=== PATIENT | male | born 1940 | race Caucasian/White ===

== ENCOUNTER 2019-09-01 08:46 | Outpatient (CLI) | payer MEDICARE, SELFPAY ==
--- NOTE | ~2019-09-01 | US_ITS ---
EXAMINATION: US venous doppler LE RT DATE: 09/01/2019 09:16 INDICATION: Acute deep venous thrombosis in the right lower limb. TECHNIQUE: Grayscale ultrasound images without and with compression and Doppler ultrasound images of the right lower extremity veins were obtained. COMPARISON: None. FINDINGS: Persistent noncompressible occlusive appearing deep venous thrombosis in both of the paired right per wong veins as well as within one of the right posterior tibial veins. Interval resolution of the thr ombosis in the second right posterior tibial vein which is now patent and compressible. Decrease in t he amount of now nonocclusive thrombus in the now partially compressible distal right popliteal vein. The more proximal right popliteal vein as well as the visualized portions of right common femoral ve in, profunda (deep) femoral vein, femoral vein, gastrocnemius vein and greater saphenous vein outflow remain patent. IMPRESSION: 1. Resolution of thrombus in one of the paired right posterior tibial veins with persistent deep yuliana ous thrombosis in the second right posterior tibial vein, both the paired peroneal veins as well as t he distal right popliteal vein. Reviewed, dictated and finalized at location A. IMPRESSION: 1. Resolution of thrombus in one of the paired right posterior tibial veins wi th persistent deep venous thrombosis in the second right posterior tibial vein, both the paired peroneal veins as well as the distal right popliteal vein.
== END 2019-09-01 08:47 | disposition home or self-care (01) ==
LOC: ANHIMG 08:49
PROVIDERS: PCP Internal Medicine; Visit Provider Internal Medicine Hematology & Oncology
DX: I82.4Y1 Acute embolism and thrombosis of unspecified deep veins of right proximal lower extremity (principal)
CPT/HCPCS: 93971

== ENCOUNTER 2019-10-13 00:17 | Outpatient (CLI) | payer MEDICARE, SELFPAY ==
[2019-10-13 15:54] LABS: SARS-CoV-2 RNA PCR Negative
== END 2019-10-13 00:18 | disposition home or self-care (01) ==
LOC: ANHCOVIDDT 00:17
PROVIDERS: PCP Internal Medicine; Visit Provider Internal Medicine Gastroenterology
DX: Z01.812 Encounter for preprocedural laboratory examination (principal); Z20.828 Contact with and (suspected) exposure to other viral communicable diseases
CPT/HCPCS: 87635; C9803; U0003

== ENCOUNTER 2019-10-16 04:12 | Day surgery (SDC) | payer MEDICARE, SELFPAY ==
[2019-10-09 14:44] VITALS: BMI 35.3
--- NOTE | 2019-10-15 16:32 | WPDANESEPP ---
Anes - Eval Pre Procedure Procedure: Operation Date: 10/16/19 07:30 Proposed Procedures p Colonoscopy - Yifan Romero MD Date/Time: 10/15/19 16:32 Surgeon: vic Pre Op Diagnosis: hx of colon Ca Patient Data Age: 79 Gender: M Height: 1.8 m Weight: 115 kg Allergies Allergy/AdvReac Type Severity Reaction Status Date / Time No Known Allergies Allergy Verified 10/09/19 14:35 Home Medications Medication Instructions Recorded Confirmed Type amitriptyline 10 mg PO HS 02/21/19 10/09/19 History ascorbic acid (vitamin C) 500 mg PO DAILY 02/21/19 10/09/19 History carvedilol 6.25 mg PO BID 02/21/19 10/09/19 History cyanocobalamin (vitamin B-12) 1,000 mcg PO DAILY 02/21/19 10/09/19 History fenofibrate micronized 134 mg PO DAILY 02/21/19 10/09/19 History ferrous sulfate 324 mg PO TID 02/21/19 10/09/19 History finasteride 5 mg PO DAILY 02/21/19 10/09/19 History hydrochlorothiazide 12.5 mg PO DAILY 02/21/19 10/09/19 History insulin detemir U-100 30 unit SUBCUT HS 02/21/19 10/09/19 History lisinopril 40 mg PO DAILY 02/21/19 10/09/19 History simvastatin 40 mg PO DAILY 02/21/19 10/09/19 History tamsulosin 0.4 mg PO DAILY 02/21/19 10/09/19 History terazosin 10 mg PO HS 02/21/19 10/09/19 History glimepiride 4 mg tablet 4 mg PO BID #180 tablet 05/11/19 10/09/19 Rx metformin 850 mg tablet 850 mg PO TID 05/16/19 10/09/19 History rivaroxaban 20 mg tablet 20 mg PO DAILY #90 tablet 05/16/19 10/09/19 Rx felodipine 10 mg tablet,extended 10 mg PO DAILY #90 tablet 06/06/19 10/09/19 Rx release 24 hr loperamide 2 mg PO Q4H PRN 10/09/19 10/09/19 History Patient hx anesthesia problems: none Family hx anesthesia problems: none PMFSH Past Medical History Medical History (Updated 10/15/19 @ 16:33 by Abril Hudson CRNA) Anemia Arthritis Asthma BPH (benign prostatic hyperplasia) Colon cancer Colonic polyp DVT (deep venous thrombosis) History of rectal fissure HLD (hyperlipidemia) HTN (hypertension) IDDM (insulin dependent diabetes mellitus) Kidney stones Rectal abscess Shingles Ulcer Surgical History Surgical History H/O bilateral cataract extraction H/O hemicolectomy H/O right knee surgery Social History Social History Smoking status: Former smoker Second hand tobacco smoke exposure: No Smoking end date: 05/10/97 Alcohol intake: never Gender identity (if verbalized by the patient): Female Exam Day of Procedure 10/15/19 16:32
[2019-10-16 06:32] VITALS: BMI 34.6
[2019-10-16 06:33] VITALS: BP 191/55; PULSE 98; RESP 20; TEMP 36.2; O2SAT 99
[2019-10-16 06:45] LABS: Glucose Point of Care 151 (65-105)
[2019-10-16] MEDS: LACTATED RINGERS 1,000 ML 150 ML IV CONT (06:45)
--- NOTE | 2019-10-16 07:12 | WPDANESEPPF ---
Anes - Initial Pre Proc Eval Procedure: Operation Date: 10/16/19 07:30 Proposed Procedures p Colonoscopy - Yifan Romero MD Date/Time: 10/16/19 07:12 Surgeon: Yifan Romero MD Pre Op Diagnosis: hx of colon Ca Patient Data Age: 79 Gender: M Height: 5 ft 11 in Weight: 112.5 kg Last Vital Signs Temp 97.2 F L 10/16/19 06:33 Pulse 98 10/16/19 06:33 Resp 20 10/16/19 06:33 BP 191/55 H 10/16/19 06:33 Pulse Ox 99 10/16/19 06:33 Allergies Allergy/AdvReac Type Severity Reaction Status Date / Time No Known Allergies Allergy Verified 10/16/19 06:28 Home Medications Medication Instructions Recorded Confirmed Type amitriptyline 10 mg PO HS 02/21/19 10/16/19 History ascorbic acid (vitamin C) 500 mg PO DAILY 02/21/19 10/16/19 History carvedilol 6.25 mg PO BID 02/21/19 10/16/19 History cyanocobalamin (vitamin B-12) 1,000 mcg PO DAILY 02/21/19 10/16/19 History fenofibrate micronized 134 mg PO DAILY 02/21/19 10/16/19 History ferrous sulfate 324 mg PO TID 02/21/19 10/16/19 History finasteride 5 mg PO DAILY 02/21/19 10/16/19 History hydrochlorothiazide 12.5 mg PO DAILY 02/21/19 10/16/19 History insulin detemir U-100 30 unit SUBCUT HS 02/21/19 10/16/19 History lisinopril 40 mg PO DAILY 02/21/19 10/16/19 History simvastatin 40 mg PO DAILY 02/21/19 10/09/19 History tamsulosin 0.4 mg PO DAILY 02/21/19 10/09/19 History terazosin 10 mg PO HS 02/21/19 10/09/19 History glimepiride 4 mg tablet 4 mg PO BID #180 tablet 05/11/19 10/16/19 Rx metformin 850 mg tablet 850 mg PO TID 05/16/19 10/16/19 History rivaroxaban 20 mg tablet 20 mg PO DAILY #90 tablet 05/16/19 10/09/19 Rx felodipine 10 mg tablet,extended 10 mg PO DAILY #90 tablet 06/06/19 10/16/19 Rx release 24 hr loperamide 2 mg PO Q4H PRN 10/09/19 10/16/19 History Laboratory Tests 10/16/19 06:42 POC Capillary Glucose 151 mg/dl H mg/dl (65-105) Patient hx anesthesia problems: none Family hx anesthesia problems: none PMFSH Past Medical History Medical History (Updated 10/15/19 @ 16:33 by Abril Hudson CRNA) Anemia Arthritis Asthma BPH (benign prostatic hyperplasia) Colon cancer Colonic polyp DVT (deep venous thrombosis) History of rectal fissure HLD (hyperlipidemia) HTN (hypertension) IDDM (insulin dependent diabetes mellitus) Kidney stones Rectal abscess Shingles Ulcer Surgical History Surgical History H/O bilateral cataract extraction H/O hemicolectomy H/O right knee surgery Social History Social History Smoking status: Former smoker Second hand tobacco smoke exposure: No Smoking end date: 05/10/97 Alcohol intake: never Gender identity (if verbalized by the patient): Female Anes - Eval Final PreProcedure Day of Procedure 10/16/19 07:12 Patient weight: obese Heart: regular rate and rhythm Lungs: clear to auscultation Airway: Mallampati scale class II Neurological: alert and oriented Last oral intake: >/= 8 hours ASA classification: III Emergent: no Anesthetic plan: proceed Anesthesia type and monitoring: general GIVS and standard monitoring Informed Consent: The patient's anesthetic plan and its attendant risks and benefits were discussed with the patient/family/POA. Questions were solicited and answers provided to the satisfaction of the patient/family/POA.
--- NOTE | 2019-10-16 07:37 | WPDGICN ---
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 He presents today for follow-up colonoscopy. Current weight appetite bowel movements normal. I would advise a high-fiber diet. Follow-up colonoscopy in 3 years intervals is advised. (2) DVT (deep venous thrombosis): Code(s): I82.409 - Acute embolism and thrombosis of unspecified deep veins of unspecified lower extremity Status: Acute Assessment and Plan: Patient has a history of DVT for which she now is on Xarelto anticoagulation this will be held briefly for his colonoscopy. GI Consult Note Consult date/time: 10/16/19 07:37 HPI: Estuardo Ruiz is a 79 year old male Seen in evaluation at the request Dr. Kline. Patient also followed by Dr. Pena, Oncology. Patient was identified as having a cancer in his colon 1 year ago. He underwent resection surgically. Was treated by chemotherapy under the direction of Dr. tanisha madden completed this in April of 2019. Patient's past medical history is significant for diabetes mellitus. He suffers with peripheral neuropathy on this basis. He recently had a DVT in the lower extremities for which she is on Xarelto anticoagulation. There is no family history of colon cancer. Review of Systems Review of Systems: All systems reviewed & are unremarkable except as noted in HPI and below PMFSH Past Medical History Medical History Anemia Arthritis Asthma BPH (benign prostatic hyperplasia) Colon cancer Colonic polyp DVT (deep venous thrombosis) History of rectal fissure HLD (hyperlipidemia) HTN (hypertension) IDDM (insulin dependent diabetes mellitus) Kidney stones Rectal abscess Shingles Ulcer Surgical History Surgical History H/O bilateral cataract extraction H/O hemicolectomy H/O right knee surgery Family History Family History Sibling Family history of lung cancer Patient's brother is Diabetes mellitus Mother Patient's mother is Father Family history of heart disease in male family member before age 55 Family history of cardiovascular disease Social History Social History Smoking status: Former smoker Second hand tobacco smoke exposure: No Smoking end date: 05/10/97 Alcohol intake: never Gender identity (if verbalized by the patient): Female Meds Home Medications and Allergies Home Medications Medication Instructions Recorded Confirmed Type amitriptyline 10 mg PO HS 02/21/19 10/16/19 History ascorbic acid (vitamin C) 500 mg PO DAILY 02/21/19 10/16/19 History carvedilol 6.25 mg PO BID 02/21/19 10/16/19 History cyanocobalamin (vitamin B-12) 1,000 mcg PO DAILY 02/21/19 10/16/19 History fenofibrate micronized 134 mg PO DAILY 02/21/19 10/16/19 History ferrous sulfate 324 mg PO TID 02/21/19 10/16/19 History finasteride 5 mg PO DAILY 02/21/19 10/16/19 History hydrochlorothiazide 12.5 mg PO DAILY 02/21/19 10/16/19 History insulin detemir U-100 30 unit SUBCUT HS 02/21/19 10/16/19 History lisinopril 40 mg PO DAILY 02/21/19 10/16/19 History simvastatin 40 mg PO DAILY 02/21/19 10/09/19 History tamsulosin 0.4 mg PO DAILY 02/21/19 10/09/19 History terazosin 10 mg PO HS 02/21/19 10/09/19 History glimepiride 4 mg tablet 4 mg PO BID #180 tablet 05/11/19 10/16/19 Rx metformin 850 mg tablet 850 mg PO TID 05/16/19 10/16/19 History rivaroxaban 20 mg tablet 20 mg PO DAILY #90 tablet 05/16/19 10/09/19 Rx felodipine 10 mg tablet,extended 10 mg PO DAILY #90 tablet 06/06/19 10/16/19 Rx release 24 hr loperamide 2 mg PO Q4H PRN 10/09/19 06
[2019-10-16 07:55] VITALS: BP 130/61; PULSE 98; RESP 32; O2SAT 98
[2019-10-16 08:02] LABS: Glucose Point of Care 148 (65-105)
[2019-10-16 08:05] VITALS: BP 131/61; PULSE 63; RESP 27; O2SAT 96
[2019-10-16 08:14] VITALS: BP 122/63; PULSE 75; RESP 29; O2SAT 97
== END 2019-10-16 08:34 | disposition home or self-care (01) ==
PROVIDERS: PCP Internal Medicine; Visit Provider Internal Medicine Gastroenterology
PROC: 0DJD8ZZ Inspection of Lower Intestinal Tract, Via Natural or Artificial Opening Endoscopic (ICD-10-PCS; CPT 45378; principal; 2019-10-16 07:30)
DX: Z12.11 Encounter for screening for malignant neoplasm of colon (principal); K63.5 Polyp of colon; K57.30 Diverticulosis of large intestine without perforation or abscess without bleeding; K64.8 Other hemorrhoids; Z85.038 Personal history of other malignant neoplasm of large intestine; Z98.0 Intestinal bypass and anastomosis status; I10 Essential (primary) hypertension; E11.9 Type 2 diabetes mellitus without complications; Z79.4 Long term (current) use of insulin; E78.5 Hyperlipidemia, unspecified; J44.9 Chronic obstructive pulmonary disease, unspecified; Z86.718 Personal history of other venous thrombosis and embolism; Z79.01 Long term (current) use of anticoagulants; Z87.891 Personal history of nicotine dependence
CPT/HCPCS: 45385; 88305; J2704; J7120

== ENCOUNTER 2019-12-23 07:32 | Outpatient (CLI) | payer MEDICARE, SELFPAY ==
--- NOTE | ~2019-12-23 | US_ITS ---
EXAMINATION: US venous doppler LE RT DATE: 12/23/2019 08:29 INDICATION: Acute deep vein thrombosis of proximal vein of right lower extremity. TECHNIQUE: Grayscale ultrasound images without and with compression and Doppler ultrasound images of the right lower extremity veins were obtained. COMPARISON: Ultrasound 09/01/2019 FINDINGS: The visualized portions of right common femoral vein, profunda (deep) femoral vein, femoral vein, pop liteal vein, peroneal veins, posterior tibial veins, and greater saphenous vein outflow are patent. IMPRESSION: 1. No deep venous thrombosis. Reviewed, dictated and finalized at location A.
== END 2019-12-23 07:33 | disposition home or self-care (01) ==
PROVIDERS: PCP Internal Medicine; Visit Provider Internal Medicine Hematology & Oncology
DX: I82.4Y1 Acute embolism and thrombosis of unspecified deep veins of right proximal lower extremity (principal)
CPT/HCPCS: 93971

== ENCOUNTER 2020-03-19 07:28 | Outpatient (CLI) | payer MEDICARE, SELFPAY ==
--- NOTE | ~2020-03-19 | CT_ITS ---
EXAMINATION: CT abdomen pelvis w con EXAM DATE: 03/19/2020 08:03 INDICATION: Malignant neoplasm of descending colon. TECHNIQUE: Spiral CT of the abdomen and pelvis was performed following intravenous injection of 100 m L Omnipaque 350. Axial, coronal and sagittal images were reviewed. The dose-length product (DLP) fo r this examination was 1422.75 mGy-cm. The exposure was tailored according to patient size (auto mA exposure control), and iterative reconstruction (ASIR) was used as additional dose reduction techniqu e. Comparison is made to prior examination from 06/05/2019. FINDINGS: There is a left liver lobe hyperenhancing lesion measuring about 1.8 cm, unchanged, hemangi radha based on prior imaging. The liver, spleen, adrenal glands and pancreas are otherwise unremarkabl e. Gallbladder is unremarkable. No biliary obstruction. Portal and splenic veins are patent. Kidn eys enhance symmetrically. Right renal cysts up to 4 cm. There is no hydronephrosis. The prostate i s unremarkable. The bladder is unremarkable. There is no retroperitoneal or pelvic lymphadenopathy. There is moderate scattered arteriosclerotic disease. Cecal resection. The stomach and small bowel are unremarkable. There is expected amount of colonic stool. No free intraperitoneal gas. The heart is normal in size. There are no pericardial or ple ural effusions. The lung bases are unremarkable. There are no osteoblastic or osteolytic lesions id entified. IMPRESSION: No evidence of metastatic disease. Stable exam. Reviewed, dictated and finalized at location A. CAL ARTIST
== END 2020-03-19 07:29 | disposition home or self-care (01) ==
LOC: ANHIMG 07:31
PROVIDERS: PCP Internal Medicine; Visit Provider Internal Medicine Hematology & Oncology
DX: C18.6 Malignant neoplasm of descending colon (principal)
CPT/HCPCS: 74177; Q9967

== ENCOUNTER 2020-06-03 07:33 | Outpatient (RCR) | payer MEDICARE, SELFPAY ==
[2020-04-29 11:30] VITALS: BMI 37.0
--- NOTE | 2020-06-03 13:46 | P.PNWOUND_ITS ---
Wound Care Note Date/Time: 06/03/20 13:46 Perianal wound has no further drainage. Feels good. No complaints. Assessment and Plan Assessment and plan (1) Anal ulcer: Code(s): K62.6 - Ulcer of anus and rectum Status: Chronic Assessment and Plan: Ulcer has essentially healed although the epithelial covering is still very thin. Advised patient to continue using aloe [place] antifungal cream to the area daily for another 2 weeks. Then may discontinue. He will follow up p.r.n. if further symptoms should develop. (2) Perianal candidiasis: Code(s): B37.89 - Other sites of candidiasis Status: Chronic Assessment and Plan: Essentially healed but will continue antifungal cream as above for 2 more weeks. Review of Systems Constitutional: Constitutional: Denies body ache(s), Denies chills, Denies fever(s), Denies headache(s) and Denies lethargy Gastrointestinal: Gastrointestinal: Denies change in bowel habits and Denies diarrhea Exam GI: Rectal Exam: visual inspection abnormal lesions ( Left-sided ulcer has completely epithelialized although very thin layer.)
== END 2020-07-15 08:09 | disposition home or self-care (01) ==
LOC: ANHWOC 07:33
PROVIDERS: PCP Internal Medicine; Visit Provider Surgery
DX: K62.6 Ulcer of anus and rectum (principal); B37.89 Other sites of candidiasis
CPT/HCPCS: 99212; 99213; G0463

== ENCOUNTER 2020-07-03 10:30 | Outpatient (CLI) | payer MEDICARE, SELFPAY ==
--- NOTE | ~2020-07-03 | US_ITS ---
EXAMINATION: US venous doppler LE RT DATE: 07/03/2020 11:56 INDICATION: Right lower limb swelling TECHNIQUE: Grayscale ultrasound images without and with compression and Doppler ultrasound images of the right lower extremity veins were obtained. COMPARISON: None. FINDINGS: The visualized portions of right common femoral vein, profunda (deep) femoral vein, femoral vein, pop liteal vein, peroneal trunk, posterior tibial veins, peroneal veins, gastrocnemius vein and greater s aphenous vein outflow are patent. IMPRESSION: 1. No deep venous thrombosis in the right lower limb. Reviewed, dictated and finalized at location A. [employer] OPERATIONS VICE PRESIDENT
== END 2020-07-03 10:31 | disposition home or self-care (01) ==
LOC: ANHIMG 10:32
PROVIDERS: PCP Internal Medicine; Visit Provider Internal Medicine Hematology & Oncology
DX: M79.89 Other specified soft tissue disorders (principal)
CPT/HCPCS: 93971

== ENCOUNTER 2020-07-26 09:26 | Outpatient (CLI) | payer MEDICARE, SELFPAY ==
--- NOTE | 2020-07-26 | ECHO_ITS ---
Patient Info Name: Estuardo Ruiz Age: 79 years : 1940 Gender: Male Ht: 71 in Wt: 264 lbs BSA: 2.49 m2 HR: 73 bpm BP: 172 / 67 mmHg Technical Quality: Good Exam Date: 07/26/2020 9:59 AM Exam Location: [facility] Patient Status: Outpatient Admit Date: 07/26/2020 Staff Ordering Physician: Ferdinand Snyder PA-C Supervising Deputy: Luan Alvarez RDCS, RT Attending Provider: Ferdinand Snyder PA-C Referring Physician: Lillian LYLES; Exam Type: CA echo doppler color flow Study Info Indications R60.0 - Localized edema Complete two-dimensional, color flow and Doppler transthoracic echocardiogram is performed. Strain analysis performed. Summary 1. Complete two-dimensional, color flow and Doppler transthoracic echocardiogram is performed. 2. Left ventricular chamber dimension is normal. 3. Left ventricular systolic function is normal, estimated at 55-60%. 4. There is mildly increased left ventricular wall thickness. 5. The left ventricular diastolic function is grade II diastolic dysfunction. 6. E/e' 10 is mildly elevated. 7. Global longitudinal strain is normal at -18.8%. 8. There is mild aortic valve sclerosis. Left Ventricle E/e' 10 is mildly elevated. Global longitudinal strain is normal at -18.8%. Left ventricular chamber dimension is normal. Left ventricular systolic function is normal, estimated at 55-60%. There is mildly increased left ventricular wall thickness. The left ventricular diastolic function is grade II diastolic dysfunction. Right Ventricle Right ventricular systolic function is normal and normal TAPSE 2.5 cm. Right ventricular chamber dimension is normal. Left Atria Left atrial chamber dimension is normal. Right Atria Right atrial chamber dimension is normal. Aortic Valve The aortic valve is trileaflet. There is mild aortic valve sclerosis. There is no aortic valve stenosis. There is no aortic valve regurgitation. Pulmonic Valve There is no pulmonic regurgitation. Mitral Valve There is no mitral valve stenosis. There is no mitral valve regurgitation. Tricuspid Valve There is no tricuspid valve regurgitation. Pericardium/Pleural There is no pericardial effusion. Inferior Vena Cava Normal inferior vena cava with >50% collapse upon inspiration consistent with normal right atrial pressure, 5 mmHg. Aorta The aortic root size at the sinus of Valsalva is normal. Left Ventricular Outflow Tract Name Value Normal LVOT 2D LVOT Diameter 2.4 cm LVOT Doppler LVOT Peak Gradient 3 mmHg LVOT Mean Gradient 1 mmHg LVOT VTI 19 cm LVOT VTI/AV VTI Ratio 0.7 LVOT Stroke Volume 82 ml LVOT CO 5.1 l/min LVOT CI 2.1 l/min/m2 Mitral Valve Name Value Normal MV Do
== END 2020-07-26 09:27 | disposition home or self-care (01) ==
PROVIDERS: PCP Internal Medicine; Visit Provider Physician Assistant
DX: R60.0 Localized edema (principal); I35.8 Other nonrheumatic aortic valve disorders; I51.9 Heart disease, unspecified
CPT/HCPCS: 93306

== ENCOUNTER 2020-09-23 06:46 | Outpatient (CLI) | payer MEDICARE, SELFPAY ==
--- NOTE | ~2020-09-23 | CT_ITS ---
EXAMINATION: CT abdomen pelvis w con EXAM DATE: 09/23/2020 07:23 INDICATION: Malignant neoplasm of descending colon. TECHNIQUE: Spiral CT of the abdomen and pelvis was performed following intravenous injection of 100 m L Omnipaque 350. Axial, coronal and sagittal images of the abdomen and pelvis were reviewed. The do se-length product (DLP) for this examination was 1523.57 mGy-cm. The exposure was tailored according to patient size (auto mA exposure control), and iterative reconstruction (ASIR) was used as addition al dose reduction technique. Comparison is made to prior examination from 03/19/2020, 06/12/2013. FINDINGS: Left liver lobe lesion measuring 2.7 x 2.0 cm, previously determined by MRI to have periph eral nodular enhancement consistent with hemangioma. This has been demonstrating slow interval increa se in size over last several years. Enhancement characteristic is again consistent with hemangioma. T here is a smaller lesion in the right liver lobe inferiorly measuring 1.5 cm also with peripheral nod ular enhancement, consistent with hemangioma. The liver, spleen, adrenal glands are otherwise unremarkable. Pancreatic calcifications, chronic panc reatitis. Gallbladder is unremarkable. No biliary obstruction. Portal and splenic veins are patent. Kidneys enhance symmetrically. Right renal cysts up to 4 cm. Mild bilateral renal atrophy. There is no hydronephrosis. The prostate is unremarkable. The bladder is unremarkable. There is no retrop eritoneal or pelvic lymphadenopathy. There is moderate scattered arteriosclerotic disease. Umbilica l abdominal wall dehiscence. Cecal resection. The stomach and small bowel are unremarkable. There is expected amount of colonic stool. There is mild sigmoid colonic diverticulosis. There is no adjacent inflammatory change to sug gest diverticulitis. No free intraperitoneal gas. The heart is normal in size. There are no peric ardial or pleural effusions. Left basilar noncalcified 10 mm granuloma, unchanged compared to chest CT 09/22/2018 There are no osteoblastic or osteolytic lesions identified. IMPRESSION: No evidence of metastatic disease. Liver hemangiomata. Chronic pancreatitis. Colonic diverticulosis. Reviewed, dictated and finalized at location A.
[2020-09-23 07:18] LABS: Estimated Glomerular Filt Rate > 60
== END 2020-09-23 06:47 | disposition home or self-care (01) ==
PROVIDERS: PCP Internal Medicine; Visit Provider Internal Medicine Hematology & Oncology
DX: C18.6 Malignant neoplasm of descending colon (principal); D18.09 Hemangioma of other sites; K86.1 Other chronic pancreatitis; K57.90 Diverticulosis of intestine, part unspecified, without perforation or abscess without bleeding
CPT/HCPCS: 74177; Q9967

== ENCOUNTER 2020-11-29 09:09 | Outpatient (RCR) | payer MEDICARE, SELFPAY ==
[2020-11-29 09:49] VITALS: BMI 38.0
== END 2021-02-27 23:59 | disposition home or self-care (01) ==
LOC: ANHWOC 09:09
PROVIDERS: PCP Internal Medicine; Visit Provider Surgery
DX: K62.6 Ulcer of anus and rectum (principal)
CPT/HCPCS: 99212; G0463

== ENCOUNTER 2021-05-26 06:32 | Outpatient (CLI) | payer MEDICARE, SELFPAY ==
--- NOTE | ~2021-05-26 | CT_ITS ---
EXAMINATION: CT abdomen pelvis w con DATE: 05/26/2021 07:28 INDICATION: Malignant neoplasm of descending colon; restaging TECHNIQUE: Computed tomography (CT) of the abdomen and pelvis was performed with 100 cc Omnipaque 350 intravenous contrast. Automated exposure control and iterative reconstruction technique were employe d. Exam dose: 1535.75 mGy-cm total exam DLP. COMPARISON: 09/23/2020 CT abdomen pelvis / CT chest abdomen pelvis 06/12/2013 CT abdomen pelvis FINDINGS: Stable approximately 9.5 mm left lower lobe pulmonary mass since 09/23/2020 or 06/12/2013, con sistent with benign process. The included lower lung zones are clear of infiltrate or consolidation. Normal heart size. Coronary artery calcification. No pericardial or pleural effusion. There is an enhancing approximately 2 cm mass at the anteromedial aspect of the lateral segment left hepatic lobe, relatively stable since 09/22/2018. Stable approximately 1.4 cm probable hemangioma with interrupted peripheral nodular enhancement in th e lower right hepatic lobe. No interval hepatic space-occupying mass lesion is evident. The gallbladder is unremarkable. No bile duct dilatation. Splenic size is within normal range Stable right renal cysts including up to 4.3 cm septated exophytic cyst. No urinary tract calculus or hydroureteronephrosis. The urinary bladder is unremarkable. There is pro state enlargement and prominent calcification. There is calcification of the abdominal aorta but no aneurysm. There is prominent calcification of th e iliac and femoral arteries as well. No intraperitoneal or retroperitoneal or pelvic mass lesion or adenopathy or ascites. Status post right colectomy. No bowel obstruction, bowel wall thickening, pneumatosis or intraperiton eal free air is evident. No suspicious osteolytic or osteoblastic lesions. IMPRESSION: Status post right colectomy for colon cancer; no recurrence or metastatic disease is anitha dent 2. Stable hepatic lesions Right renal stable cysts Prostate enlargement and calcification Long-standing stable 9.5 mm left lower lobe pulmonary mass consistent with benign process Reviewed, dictated and finalized at [facility]. Reviewed, dictated and finalized at location A. 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 Stable hepatic lesions Right renal stable cysts Prostate enlargement and calcification Long-standing stable 9.5 mm left lower lobe pulmonary mass consistent with joya gn process
[2021-05-26 07:13] LABS: Estimated Glomerular Filt Rate > 60
== END 2021-05-26 06:33 | disposition home or self-care (01) ==
LOC: ANHIMG 06:36
PROVIDERS: PCP Internal Medicine; Visit Provider Internal Medicine Hematology & Oncology
DX: C18.6 Malignant neoplasm of descending colon (principal); Z90.49 Acquired absence of other specified parts of digestive tract; K76.9 Liver disease, unspecified; N28.1 Cyst of kidney, acquired; N40.0 Benign prostatic hyperplasia without lower urinary tract symptoms; R91.8 Other nonspecific abnormal finding of lung field
CPT/HCPCS: 74177; Q9967

== ENCOUNTER 2021-12-17 01:58 | Day surgery (SDC) | payer MEDICARE, SELFPAY ==
[2021-12-11 15:22] VITALS: BMI 38.5
--- NOTE | 2021-12-11 15:32 | PC.NURSE ---
PRE-OP INSTRUCTIONS, PLEASE READ CAREFULLY Report to the Outpatient Waiting Room, entrance under the green pavilion located off [facility], at time _1100_ on date _12/17/21_. OR Time: _1 PM_. - You and your visitor will be asked a series of questions to screen for COVID 19 for your protection. - Only one visitor is allowed at this time. - The patient visitor is requested to leave or wait in car when not with patient. - A mask is required within the hospital. Patients may have clear liquids (water, carbonated beverages, clear teas, apple juice) until 3 hours prior to surgery (1000 AM) with a maximum of 20 ounces. - No food from midnight until time of surgery Take the following medications with a SIP of water the morning of surgery: _CARVEDILOL, FELODIPINE, HYDRALAZINE, __ Medications to discontinue per physician __N/A_, Date to take last dose Please no deodorant, or body powder the day of surgery. No jewelry (including any body piercings) or valuables the day of surgery, leave them at home. Please take a shower or bath the night before, or the morning of, surgery with an antibacterial soap. Wear comfortable, loose fitting clothing. - Jewelry must be removed prior to entering the operating room. Rings and piercings that are not removed may be cut off. - The hospital will not accept responsibility for valuables. - Please leave all valuables, including medications, at home the day of surgery. If you are going home after surgery, a licensed fleet driver must drive you home. - NO public transportation without another adult. - We recommend that an adult stay with you for 24 hours following discharge. - We also recommend that you do not drive, make important decision, drink alcoholic beverages, or take any drugs that were not prescribed by your health care provider for at least 24 hours after your discharge time. Follow any additional instructions given to you from your surgeon. If you or anyone in your household have experienced Covid symptoms in the past week, please notify your surgeon or the nurse liaison at the phone number below for possible testing. Telephone instructions given to __PT__and asked if any additional questions and then verbalized understanding. Patient advised to call surgeon office or pre surgery nurse liaison [phone] if any additional questions.
[2021-12-17 10:12] VITALS: BP 135/47; PULSE 78; RESP 18; TEMP 36.6; O2SAT 100
--- NOTE | 2021-12-17 10:51 | WPDANESEPPF ---
Anes - Initial Pre Proc Eval Procedure: Operation Date: 12/17/21 12:00 Proposed Procedures p Removal Musa Cath - Wandy Lozada MD Date/Time: 12/17/21 10:51 Surgeon: Wandy Lozada MD Pre Op Diagnosis: Malignant Neoplasm of Descending Colon Patient Data Age: 81 Gender: M Height: 1.78 m Weight: 119.4 kg Last Vital Signs Temp 36.6 C 12/17/21 10:12 Pulse 78 12/17/21 10:12 Resp 18 12/17/21 10:12 BP 135/47 L 12/17/21 10:12 Pulse Ox 100 12/17/21 10:12 O2 Del Method Room Air 12/17/21 10:12 Allergies Allergy/AdvReac Type Severity Reaction Status Date / Time No Known Allergies Allergy Verified 12/17/21 10:20 Home Medications Medication Instructions Recorded Confirmed Type amitriptyline 10 mg tablet 10 mg PO HS 02/21/19 12/17/21 History ascorbic acid (vitamin C) 500 mg 500 mg PO DAILY 02/21/19 12/17/21 History tablet carvedilol 6.25 mg tablet 6.25 mg PO BID 02/21/19 12/17/21 History fenofibrate micronized 134 mg 134 mg PO DAILY 02/21/19 12/17/21 History capsule ferrous sulfate 324 mg (65 mg 324 mg PO BID 02/21/19 12/17/21 History iron) tablet,delayed release finasteride 5 mg tablet 5 mg PO DAILY 02/21/19 12/17/21 History lisinopril 40 mg tablet 40 mg PO DAILY 02/21/19 12/17/21 History simvastatin 40 mg tablet 40 mg PO DAILY 02/21/19 12/17/21 History tamsulosin 0.4 mg capsule 0.4 mg PO DAILY 02/21/19 12/17/21 History metformin 850 mg tablet 850 mg PO TID 05/16/19 12/17/21 History insulin detemir U-100 100 unit/mL 40 unit subcut HS 08/15/20 12/17/21 History subcutaneous solution comp.stocking,knee,long,medium #12 ea 08/30/20 12/02/21 Rx felodipine 10 mg tablet,extended 10 mg PO DAILY #90 tabs 05/08/21 12/17/21 Rx release 24 hr hydralazine 50 mg tablet 50 mg PO TID #270 tabs 06/04/21 12/17/21 Rx hydrochlorothiazide 25 mg tablet 25 mg PO DAILY #90 tabs 07/14/21 12/17/21 Rx glimepiride 4 mg tablet 4 mg PO BID #180 tabs 08/03/21 12/17/21 Rx terazosin 10 mg capsule 10 mg PO HS #90 caps 10/29/21 12/17/21 Rx Patient hx anesthesia problems: none Family hx anesthesia problems: none Results Review: All pre-operative results and documents have been reviewed as part of the pre-operative evaluation. [facility] Past Medical History Medical History Anemia Arthritis Asthma BPH (benign prostatic hyperplasia) Colon cancer Colonic polyp DVT (deep venous thrombosis) History of rectal fissure HLD (hyperlipidemia) HTN (hypertension) Kidney stones Rectal abscess Shingles Type 2 diabetes mellitus without complications Ulcer Surgical History Surgical History H/O bilateral cataract extraction H/O hemicolectomy H/O right knee surgery Port-A-Cath in place Family History Family History Sibling Family history of lung cancer Patient's brother is Diabetes mellitus Mother Patient's mother is Father Family history of heart disease in male family member before age 55 Family history of cardiovascular disease Acute myocardial infarction Cerebrovascular accident Social History Social History (Updated 12/06/21 @ 12:07 by Vincent Kline DO) Smoking packs per day: 2 Smoking cigarettes per day: 40.0 Years smoked: 30 Smoking pack-years: 60.00 Smoking status: Former smoker Second hand tobacco smoke exposure: No Smoking end date: 05/10/97 Alcohol intake: never Substance use: never Substance use type: does not use Living arrangements: with family Gender identity (if verbalized by the patient): Male Sexual Orientation (if Verbalized by the Patient): Straight or Heterosexual Spiritual care concerns: No Anes - Eval Final PreProcedure Day of Procedure 12/17/21 10:51 Patient weight: obese Heart: regular rate and rhythm Lungs: clear to auscultation Air
[2021-12-17 10:54] LABS: Glucose Point of Care 187 mg/dl (65-105)
--- NOTE | 2021-12-17 11:06 | PM.IMHP ---
H&P: HPI History of Present Illness Date/Time: 12/17/21 11:06 Chief Complaint: colon cancer Narrative: Pt is a 81 y/o M s/p treatment of colon cancer now requesting VAD removal. Pt reports VAD has been there for about 3 yrs and never has given him issue. Pt reports not being used for at least last year. Pt has VAD routinely flushed. Review of Systems Review of Systems: All systems reviewed & are unremarkable except as noted in HPI and below PMFSH Past Medical History Medical History Anemia Arthritis Asthma BPH (benign prostatic hyperplasia) Colon cancer Colonic polyp DVT (deep venous thrombosis) History of rectal fissure HLD (hyperlipidemia) HTN (hypertension) Kidney stones Rectal abscess Shingles Type 2 diabetes mellitus without complications Ulcer Surgical History Surgical History H/O bilateral cataract extraction H/O hemicolectomy H/O right knee surgery Port-A-Cath in place Family History Family History Sibling Family history of lung cancer Patient's brother is Diabetes mellitus Mother Patient's mother is Father Family history of heart disease in male family member before age 55 Family history of cardiovascular disease Acute myocardial infarction Cerebrovascular accident Social History Social History Smoking packs per day: 2 Smoking cigarettes per day: 40.0 Years smoked: 30 Smoking pack-years: 60.00 Smoking status: Former smoker Second hand tobacco smoke exposure: No Smoking end date: 05/10/97 Alcohol intake: never Substance use: never Substance use type: does not use Living arrangements: with family Gender identity (if verbalized by the patient): Male Sexual Orientation (if Verbalized by the Patient): Straight or Heterosexual Spiritual care concerns: No Meds Home Medications and Allergies Home Medications Medication Instructions Recorded Confirmed Type amitriptyline 10 mg tablet 10 mg PO HS 02/21/19 12/17/21 History ascorbic acid (vitamin C) 500 mg 500 mg PO DAILY 02/21/19 12/17/21 History tablet carvedilol 6.25 mg tablet 6.25 mg PO BID 02/21/19 12/17/21 History fenofibrate micronized 134 mg 134 mg PO DAILY 02/21/19 12/17/21 History capsule ferrous sulfate 324 mg (65 mg 324 mg PO BID 02/21/19 12/17/21 History iron) tablet,delayed release finasteride 5 mg tablet 5 mg PO DAILY 02/21/19 12/17/21 History lisinopril 40 mg tablet 40 mg PO DAILY 02/21/19 12/17/21 History simvastatin 40 mg tablet 40 mg PO DAILY 02/21/19 12/17/21 History tamsulosin 0.4 mg capsule 0.4 mg PO DAILY 02/21/19 12/17/21 History metformin 850 mg tablet 850 mg PO TID 05/16/19 12/17/21 History insulin detemir U-100 100 unit/mL 40 unit subcut HS 08/15/20 12/17/21 History subcutaneous solution comp.stocking,knee,long,medium #12 ea 08/30/20 12/02/21 Rx felodipine 10 mg tablet,extended 10 mg PO DAILY #90 tabs 05/08/21 12/17/21 Rx release 24 hr hydralazine 50 mg tablet 50 mg PO TID #270 tabs 06/04/21 12/17/21 Rx hydrochlorothiazide 25 mg tablet 25 mg PO DAILY #90 tabs 07/14/21 12/17/21 Rx glimepiride 4 mg tablet 4 mg PO BID #180 tabs 08/03/21 12/17/21 Rx terazosin 10 mg capsule 10 mg PO HS #90 caps 10/29/21 12/17/21 Rx Allergies Allergy/AdvReac Type Severity Reaction Status Date / Time No Known Allergies Allergy Verified 12/17/21 10:20 Vital Signs Vital Signs - 24 hr 12/17/21 10:12 Temperature 36.6 C Pulse Rate 78 Respiratory Rate 18 Blood Pressure 135/47 L Pulse Oximetry 100 Oxygen Delivery Room Air Exam Const: General: cooperative, comfortable and no acute distress Chest: Other: R chest VAD - C/D/I Resp: Auscultation: clear to auscultation bilaterally Cardio: Rate: regular rate Rhythm: regular rhyt
--- NOTE | 2021-12-17 11:09 | WPDHPUPDATE1 ---
History and Physical Update Update Date/Time: 12/17/21 11:09 History and Physical has been reviewed, including an updated exam of the patient. There are NO changes in the patient's condition. Risks, benefits, and alternatives have been discussed and questions answered. Patient agrees to proceed with procedure.
[2021-12-17] MEDS: LACTATED RINGERS 1,000 ML 30 ML IV CONT (11:11)
[2021-12-17] MEDS: ceFAZolin 2 GM/D5W 50 ML 2 GM/50 ML BAG IVPB (11:59)
[2021-12-17] MEDS: BUPIVACAINE/EPINEPHRINE 0.25% 50 ML VIAL INFILTRATE (12:18)
[2021-12-17 12:29] VITALS: BP 107/57; PULSE 88; RESP 16; O2SAT 95
--- NOTE | 2021-12-17 12:31 | P.OP_ITS ---
Procedure Note - Detailed Date of Procedure 12/17/21 Pre-op Diagnosis Malignant Neoplasm of Descending Colon Post-op Diagnosis Same Procedure Performed removal [facility] chest VAD Surgeon Wandy Lozada MD Anesthesia MAC and Local Indications 81 y/o M s/p treatment for colon cancer. Pt had R sided VAD placed about a year ago. Findings RIJ VAD Description of Procedure The patient was taken to the operating room and placed in the supine position. After adequate induction MAC anesthesia, the patient was then prepped and draped in the normal sterile fashion. A time-out was then done to verify the patient's identity, as well as the procedure being performed. I began by localizing the area of the previously placed port in the right chest. After the area was adequately anesthetized, I made an incision through the previous incision to gain access to the port in the subcutaneous tissue. I was then able to identify the port and using dissection with the Bovie cautery, I was able to free the reservoir from the subcutaneous pocket. The reservoir was being held in by 2 sutures and these were subsequently cut. I was then able to remove the reservoir from the pocket. I then removed the catheter from the right internal jugular vein in full. I then held pressure at the level the right internal jugular vein for approximately 5 minutes. Hemostasis was noted and I irrigated the pocket. I then closed the subcutaneous tissue with 3-0 Vicryl suture. The skin was closed with 4-0 Monocryl subcuticular suture. Dermabond was placed on the wound. The patient tolerated the procedure well and was alert and awake in the operating room postoperative. The patient will be sent to the recovery room in stable condition. Estimated Blood Loss 5 Drains No Packing No Pathology None sent Complications No immediate complications Condition Stable Disposition PACU [facility] Billing Surgery - Charge Forward: Surgery Billing
[2021-12-17 12:55] VITALS: BP 124/61; PULSE 86; RESP 16; O2SAT 95
[2021-12-17 13:20] VITALS: BP 133/58; PULSE 67; RESP 16
== END 2021-12-17 13:20 | disposition home or self-care (01) ==
PROVIDERS: PCP Internal Medicine; Visit Provider Surgery
PROC: (CPT 36589; principal; 2021-12-17 12:00)
DX: Z45.2 Encounter for adjustment and management of vascular access device (principal); Z85.038 Personal history of other malignant neoplasm of large intestine; I10 Essential (primary) hypertension; E78.5 Hyperlipidemia, unspecified; D64.9 Anemia, unspecified; N40.0 Benign prostatic hyperplasia without lower urinary tract symptoms; E11.9 Type 2 diabetes mellitus without complications; Z86.718 Personal history of other venous thrombosis and embolism; Z79.84 Long term (current) use of oral hypoglycemic drugs; Z79.4 Long term (current) use of insulin; Z90.49 Acquired absence of other specified parts of digestive tract; Z87.891 Personal history of nicotine dependence; E66.9 Obesity, unspecified; Z68.37 Body mass index [BMI] 37.0-37.9, adult
CPT/HCPCS: 36590; 82948; J0690; J2704; J3010; J7120

== ENCOUNTER 2022-06-02 06:37 | Outpatient (CLI) | payer MEDICARE, SELFPAY ==
--- NOTE | ~2022-06-02 | CT_ITS ---
CT Abdomen and Pelvis with contrast. History: Colon cancer. Spiral CT of the abdomen and pelvis was performed after the administration of intravenous contrast. 1 00 cc of Omnipaque 350 was administered intravenously without complication. Dose reduction technique was used on this scan by utilizing automated exposure control and iterative reconstruction technique. The dose-length product (DLP) was 1588.46 mGy-cm. COMPARISON: 05/26/2021 and 09/22/2018 Findings: Scans through the lung bases demonstrate stable 1 cm left lower lobe pulmonary nodule. Stable probable hepatic hemangioma along the anterior left hepatic lobe. The spleen, pancreas, gallbl adder, left kidney, and adrenal glands are within normal limits. Stable right renal cysts. No evidenc e of aortic aneurysm. No lymphadenopathy is seen. There is no evidence of bowel obstruction. There is evidence of prior partial right colectomy. No abn ormal bowel wall thickening evident. Images through the pelvis were performed. Urinary bladder unremarkable. Prostate gland and seminal ve sicles are unremarkable. No ascites is seen. Impression: No evidence for active malignancy or metastatic disease. Stable 1 cm left lower lobe pulmonary nodule dating back at least to 09/22/2018. Stability over this t brian interval is compatible with benignity. Prior partial right colectomy. Reviewed, dictated and finalized at location . 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 Stable 1 cm left lower lobe pulmonary nodule dating back at least to 09/22/2018. Stability over this time interval is compatible with benignity. Prior partial right colectomy.
[2022-06-02 07:07] LABS: Estimated Glomerular Filt Rate 45
== END 2022-06-02 06:38 | disposition home or self-care (01) ==
PROVIDERS: PCP Internal Medicine; Visit Provider Internal Medicine Hematology & Oncology
DX: C16.6 Malignant neoplasm of greater curvature of stomach, unspecified (principal); R91.1 Solitary pulmonary nodule; Z90.49 Acquired absence of other specified parts of digestive tract
CPT/HCPCS: 36415; 74177; 80053; 82378; 85025; Q9967

== ENCOUNTER 2023-05-26 08:26 | Outpatient (CLI) | payer MEDICARE, SELFPAY ==
[2023-05-26 08:54] LABS: Basophils Absolute Auto 0.1 K/mm3 (0.0-0.1); Basophils Percent Auto 0.8 % (0.2-1.2); Eosinophils Absolute Auto 0.1 K/mm3 (0-0.3); Eosinophils Percent Auto 2.4 % (0-4.4); Hematocrit 32.6 % (42.0-52.0); Hemoglobin 10.9 g/dL (14.0-18.0); Immature Granulocyte Absolute 0.02 K/mm3 (0.00-0.031); Immature Granulocyte Percent A 0.3 % (0-0.5); Lymphocytes Absolute Auto 1.45 K/mm3 (0.9-3.2); Lymphocytes Percent Auto 24.5 % (18.3-44.2); Mean Corpuscular HGB Conc 33.4 g/dl (32-36); Mean Corpuscular Hemoglobin 29.9 pg (26-34); Mean Corpuscular Volume 89.3 fl (80-100); Mean Platelet Volume 10.6 fl (7.4-10.4); Monocytes Absolute Auto 0.4 K/mm3 (0.1-0.6); Monocytes Percent Auto 7.1 % (2.6-8.5); Neutrophils Absolute Auto 3.9 K/mm3 (1.3-6.7); Neutrophils Percent Auto 64.9 % (45.5-73.1); Platelet Count Result 174 k/mm3 (150-375); Red Blood Count 3.65 M/mm3 (4.6-6.20); Red Cell Distribution Width 13.8 % (11.5-14.5); White Blood Count 5.9 K/mm3 (4.5-10.0)
[2023-05-26 16:45] LABS: Alanine Aminotransferase 21 U/L (6-50); Albumin Level 3.8 g/dL (3.5-5.1); Alkaline Phosphatase 34 U/L (38-126); Anion Gap 10 mmol/L (8-16); Aspartate Amino Transferase 25 U/L (17-59); Bilirubin,Total 0.8 mg/dL (0.2-1.3); Blood Urea Nitrogen 29 mg/dL (9-20); Calcium 9.3 mg/dL (8.4-10.2); Carbon Dioxide 22 mmol/L (22-30); Chloride 106 mmol/L (98-107); Estimated Glomerular Filt Rate 58; Glucose 214 mg/dL (65-110); Potassium 4.3 mmol/L (3.4-5.0); Sodium 138 mmol/L (137-145)
[2023-05-26 17:16] LABS: Carcinoembryonic Antigen 0.6 ng/mL (0.0-3.0)
== END 2023-05-26 08:27 | disposition home or self-care (01) ==
PROVIDERS: PCP Internal Medicine; Visit Provider Internal Medicine Hematology & Oncology
DX: C18.6 Malignant neoplasm of descending colon (principal)
CPT/HCPCS: 36415; 80053; 82378; 85025

== ENCOUNTER 2023-06-07 07:17 | Outpatient (CLI) | payer MEDICARE, SELFPAY ==
--- NOTE | ~2023-06-07 | CT_ITS ---
EXAMINATION: CT abdomen pelvis w con DATE: 06/07/2023 07:48 INDICATION: Restaging of descending colon carcinoma TECHNIQUE: Computed tomography (CT) of the abdomen and pelvis was performed with 100 CC Omnipaque 350 intravenous contrast. Automated exposure control and iterative reconstruction technique were employe d. Exam dose: 1444.76 mGy-cm total exam DLP. COMPARISON: 05/29/2022 CT abdomen pelvis FINDINGS: The included lower lung zones are clear of infiltrate or consolidation. Previously reported 1 cm nodular density in the left lower lobe is not included within the scope of this examination and therefore cannot be compared to prior studies. Normal heart size. No pericardial or pleural effusion. There is some interrupted multifocal peripheral puddling of contrast material within the anterolatera l aspect of the lateral segment of the left hepatic lobe, stable in size since 05/29/2022, consistent with benign hemangioma. Similar but smaller probable benign hemangioma is noted in the posterolateral aspect of the lower right hepatic lobe. There is hepatic steatosis. Splenic size is within normal range. The gallbladder appears unremarkable. No bile duct or pancreatic duct dilatation. There are multiple pancreatic calcifications suggesting chronic pancreatitis. Normal morphology of the adrenal glands. Multiple stable right renal cysts. No urinary tract calculus or hydroureteronephrosis. Prostate enlargement and calcifications. The urinary bladder is unremarkable. There is atherosclerotic calcification but normal caliber of the abdominal aorta, iliac and femoral a rteries. No intraperitoneal or retroperitoneal or pelvic mass lesion or adenopathy or ascites. Status post partial right colectomy. No bowel obstruction, bowel wall thickening, pneumatosis or intr aperitoneal free air. Diverticulosis of the left colon; no CT evidence of diverticulitis. No suspicious osteolytic or osteoblastic lesions are noted. Degenerative spurring of the thoracic spine. Multilevel degenerative disc disease of the lumbar spine , most severe at L5-S1, with associated mild retrolisthesis at this level. IMPRESSION: Status post partial right colectomy Diverticulosis of left colon; no evidence of diverticulitis Hepatic hemangiomas Hepatic steatosis Chronic pancreatitis Right renal cysts Reviewed, dictated and finalized at [facility]. Reviewed, dictated and finalized at location B. CEMENTER
== END 2023-06-07 07:18 | disposition home or self-care (01) ==
PROVIDERS: PCP Internal Medicine; Visit Provider Internal Medicine Hematology & Oncology
DX: C18.6 Malignant neoplasm of descending colon (principal); Z90.49 Acquired absence of other specified parts of digestive tract; K57.90 Diverticulosis of intestine, part unspecified, without perforation or abscess without bleeding; K76.0 Fatty (change of) liver, not elsewhere classified; K86.1 Other chronic pancreatitis; N28.1 Cyst of kidney, acquired
CPT/HCPCS: 74177; Q9967

== ENCOUNTER 2023-09-02 11:19 | Emergency (ER) | payer MEDICARE, SELFPAY ==
[2023-09-02 11:34] VITALS: BP 142/51; PULSE 76; RESP 16; TEMP 37.2; O2SAT 99
--- NOTE | 2023-09-02 12:19 | ED.URI ---
HPI - URI/Sore Throat General Chief Complaint: Upper Respiratory Infection Stated Complaint: cough,chest/nasal congestion Time Seen by Provider: 09/02/23 12:19 Source: patient and RN notes reviewed Mode of arrival: ambulatory Limitations: no limitations History of Present Illness HPI Narrative: 82-year-old male presents with concern for one-week history of cough, nasal drainage, feeling feverish and tired. He reports he took Eleanor which helps somewhat with his runny nose. He denies shortness of breath or known sick contacts. MD elicited complaint: cough Related Data Home Medications Medication Instructions Recorded Confirmed amitriptyline 10 mg tablet 10 mg PO HS 02/21/19 07/05/23 ascorbic acid (vitamin C) 500 mg 500 mg PO DAILY 02/21/19 07/05/23 tablet carvedilol 6.25 mg tablet 6.25 mg PO BID 02/21/19 07/05/23 fenofibrate micronized 134 mg 134 mg PO DAILY 02/21/19 07/05/23 capsule ferrous sulfate 324 mg (65 mg 324 mg PO BID 02/21/19 07/05/23 iron) tablet,delayed release finasteride 5 mg tablet 5 mg PO DAILY 02/21/19 09/02/23 lisinopril 40 mg tablet 40 mg PO DAILY 02/21/19 09/02/23 simvastatin 40 mg tablet 40 mg PO DAILY 02/21/19 09/02/23 tamsulosin 0.4 mg capsule 0.4 mg PO DAILY 02/21/19 09/02/23 metformin 850 mg tablet 850 mg PO TID 05/16/19 09/02/23 Allergies Allergy/AdvReac Type Severity Reaction Status Date / Time No Known Allergies Allergy Verified 09/02/23 11:39 Review of Systems Review of Systems: CONSTITUTIONAL: Reports malaise, fatigue, chills, sweats EYES: Denies visual changes, redness, or discharge. ENT: Reports rhinorrhea, congestion. Denies sinus pain, otalgia and sore throat. CARDIOVASCULAR: Denies chest pain, palpitations, or edema. RESPIRATORY: Reports productive cough. Denies dyspnea. GASTROINTESTINAL: Denies abdominal pain, nausea, vomiting, diarrhea SKIN: Denies rash or itching. MUSCULOSKELETAL: Denies myalgia. NEUROLOGIC: Denies headache. All systems reviewed & are unremarkable except as noted in HPI and below PMFSH Past Medical History Medical History Anemia Arthritis Asthma BPH (benign prostatic hyperplasia) Colon cancer Colonic polyp DVT (deep venous thrombosis) History of rectal fissure HLD (hyperlipidemia) HTN (hypertension) Kidney stones Rectal abscess Shingles Type 2 diabetes mellitus without complications Ulcer Surgical History Surgical History H/O bilateral cataract extraction H/O hemicolectomy H/O right knee surgery Port-A-Cath in place Family History Family History Sibling Family history of lung cancer Patient's brother is Diabetes mellitus Mother Patient's mother is Father Family history of heart disease in male family member before age 55 Family history of cardiovascular disease Acute myocardial infarction Cerebrovascular accident Social History Social History (Updated 07/05/23 @ 08:45 by Alyssa Tran [facility]) Smoking packs per day: 2 Smoking cigarettes per day: 40.0 Years smoked: 30 Smoking pack-years: 60.00 Smoking status: Former smoker Second hand tobacco smoke exposure: No Smoking end date: 05/10/97 Alcohol intake: never Substance use: never Substance use type: does not use Do You Feel Safe in your Home?: Yes Lack of Transportation: No Lack of Food: Never True Current Housing: I Have Housing Concerned About Future Housing: No Difficulty Paying Gas/Electric Bills: No Difficulty Paying for Meds: No Currently Unemployed: No Education: Decline to Answer Difficulty w/ Childcare or Family Care: Decline to Answer Living arrangements: with family Occupation/Education: retired Gender identity (if verbalized by the patient): Male Sexual Orientation (if Verbalized by the Patient): Straight or
== END 2023-09-02 12:36 | disposition home or self-care (01) ==
PROVIDERS: Emergency Provider Nurse Practitioner; PCP Internal Medicine
DX: J22 Unspecified acute lower respiratory infection (principal); Z87.891 Personal history of nicotine dependence; D64.9 Anemia, unspecified; M19.90 Unspecified osteoarthritis, unspecified site; J45.909 Unspecified asthma, uncomplicated; N40.0 Benign prostatic hyperplasia without lower urinary tract symptoms; E78.5 Hyperlipidemia, unspecified; I10 Essential (primary) hypertension; E11.9 Type 2 diabetes mellitus without complications; Z79.84 Long term (current) use of oral hypoglycemic drugs; Z98.42 Cataract extraction status, left eye; Z98.41 Cataract extraction status, right eye; Z86.718 Personal history of other venous thrombosis and embolism
CPT/HCPCS: 99213; G0463

== ENCOUNTER 2023-10-05 13:55 | Outpatient (CLI) | payer MEDICARE, SELFPAY ==
--- NOTE | ~2023-10-05 | US_ITS ---
EXAMINATION: US venous doppler [facility] DATE: 10/05/2023 14:30 INDICATION: Lower limb pain and swelling. Other specified soft tissue disorders. TECHNIQUE: Grayscale ultrasound images without and with compression and Doppler ultrasound images of the bilateral lower extremity veins were obtained. COMPARISON: Ultrasound 07/03/2020 FINDINGS: The visualized portions of right common femoral vein, profunda femoral vein, femoral vein, popliteal vein, peroneal veins, posterior tibial veins, and greater saphenous vein outflow are patent. The visualized portions of left common femoral vein, profunda (deep) femoral vein, and greater saphen ous vein outflow are patent. There is thrombus in left femoral, popliteal, posterior tibial, peroneal , and gastrocnemius veins. IMPRESSION: 1. Deep vein thrombosis involving the left femoral, popliteal, posterior tibial, peroneal, and gastr ocnemius veins. Reviewed, dictated and finalized at location A. IMPRESSION: 1. Deep vein thrombosis involving the left femoral, popliteal, posterior tibia l, peroneal, and gastrocnemius veins.
== END 2023-10-05 13:56 | disposition home or self-care (01) ==
LOC: ANHIMG 13:56
PROVIDERS: PCP Internal Medicine; Visit Provider Internal Medicine
DX: I82.412 Acute embolism and thrombosis of left femoral vein (principal); I82.432 Acute embolism and thrombosis of left popliteal vein; I82.442 Acute embolism and thrombosis of left tibial vein; I82.452 Acute embolism and thrombosis of left peroneal vein; I82.462 Acute embolism and thrombosis of left calf muscular vein
CPT/HCPCS: 93970

== ENCOUNTER 2023-10-13 08:19 | Emergency (ER) | payer MEDICARE, SELFPAY ==
[2023-10-13 08:26] VITALS: BP 171/65; PULSE 73; RESP 16; TEMP 36.4; O2SAT 99
--- NOTE | 2023-10-13 08:51 | ED.GENADULT ---
HPI - General Adult General Chief complaint: Skin/Abscess/Foreign Body Stated complaint: LLE redness, recent DVT dx Time Seen by Provider: 10/13/23 08:31 History of Present Illness HPI narrative: patient is an 83-year-old male who presents ER with slight redness to the left leg. He noticed some lines that were read where his ankle bends dorsally and there is some slight warmth to the andrea/ calf. He was recently diagnosed on 10/04 with DVTs in left leg. He has been taking his Eliquis. No chest pain or shortness of breath. He has persistent edema. He is on a water pill. She has not been particularly ambulatory. Patient has history of previous DVT when he had colon cancer. No pain/swelling into thigh/groin. Related Data Home Medications Medication Instructions Recorded Confirmed amitriptyline 10 mg tablet 10 mg PO HS 02/21/19 07/05/23 ascorbic acid (vitamin C) 500 mg 500 mg PO DAILY 02/21/19 07/05/23 tablet carvedilol 6.25 mg tablet 6.25 mg PO BID 02/21/19 07/05/23 fenofibrate micronized 134 mg 134 mg PO DAILY 02/21/19 07/05/23 capsule ferrous sulfate 324 mg (65 mg 324 mg PO BID 02/21/19 07/05/23 iron) tablet,delayed release finasteride 5 mg tablet 5 mg PO DAILY 02/21/19 09/02/23 lisinopril 40 mg tablet 40 mg PO DAILY 02/21/19 09/02/23 simvastatin 40 mg tablet 40 mg PO DAILY 02/21/19 09/02/23 tamsulosin 0.4 mg capsule 0.4 mg PO DAILY 02/21/19 09/02/23 metformin 850 mg tablet 850 mg PO TID 05/16/19 09/02/23 Allergies Allergy/AdvReac Type Severity Reaction Status Date / Time No Known Allergies Allergy Verified 10/13/23 08:55 Review of Systems Constitutional: Constitutional: Reports no additional constitutional complaints Cardiovascular: Cardiovascular: Reports no additional cardiovascular complaints Respiratory: Respiratory: Reports no additional respiratory complaints Musculoskeletal: Musculoskeletal: Reports no additional musculoskeletal complaints PMFSH Past Medical History Medical History Anemia Arthritis Asthma BPH (benign prostatic hyperplasia) Colon cancer Colonic polyp DVT (deep venous thrombosis) History of rectal fissure HLD (hyperlipidemia) HTN (hypertension) Kidney stones Rectal abscess Shingles Type 2 diabetes mellitus without complications Ulcer Surgical History Surgical History H/O bilateral cataract extraction H/O hemicolectomy H/O right knee surgery Port-A-Cath in place Family History Family History Sibling Family history of lung cancer Patient's brother is Diabetes mellitus Mother Patient's mother is Father Family history of heart disease in male family member before age 55 Family history of cardiovascular disease Acute myocardial infarction Cerebrovascular accident Social History Social History (Updated 07/05/23 @ 08:45 by Alyssa Tran [facility]) Smoking packs per day: 2 Smoking cigarettes per day: 40.0 Years smoked: 30 Smoking pack-years: 60.00 Smoking status: Former smoker Second hand tobacco smoke exposure: No Smoking end date: 05/10/97 Alcohol intake: never Substance use: never Substance use type: does not use Do You Feel Safe in your Home?: Yes Lack of Transportation: No Lack of Food: Never True Current Housing: I Have Housing Concerned About Future Housing: No Difficulty Paying Gas/Electric Bills: No Difficulty Paying for Meds: No Currently Unemployed: No Education: Decline to Answer Difficulty w/ Childcare or Family Care: Decline to Answer Living arrangements: with family Occupation/Education: retired Gender identity (if verbalized by the patient): Male Sexual Orientation (if Verbalized by the Patient): Straight or Heterosexual Spiritual care concerns: No Exam Narrative: GENERAL: Well-
[2023-10-13 08:58] VITALS: BP 159/58; PULSE 84; RESP 16; O2SAT 98
[2023-10-13 08:59] VITALS: BP 159/58; PULSE 84; O2SAT 98
== END 2023-10-13 08:59 | disposition home or self-care (01) ==
PROVIDERS: Emergency Provider Emergency Medicine; PCP Internal Medicine
DX: L03.116 Cellulitis of left lower limb (principal); Z79.01 Long term (current) use of anticoagulants; Z85.038 Personal history of other malignant neoplasm of large intestine; E78.5 Hyperlipidemia, unspecified; I10 Essential (primary) hypertension; E11.9 Type 2 diabetes mellitus without complications; Z87.891 Personal history of nicotine dependence; Z86.718 Personal history of other venous thrombosis and embolism
CPT/HCPCS: 99283

== ENCOUNTER 2023-12-07 13:24 | Outpatient (CLI) | payer MEDICARE, SELFPAY ==
[2023-12-07 13:39] LABS: Basophils Percent Auto 0.6 % (0.2-1.2); Eosinophils Absolute Auto 0.2 K/mm3 (0-0.3); Eosinophils Percent Auto 2.3 % (0-4.4); Hematocrit 33.8 % (42.0-52.0); Hemoglobin 11.3 g/dL (14.0-18.0); Immature Granulocyte Absolute 0.02 K/mm3 (0.00-0.031); Immature Granulocyte Percent A 0.3 % (0-0.5); Lymphocytes Absolute Auto 1.71 K/mm3 (0.9-3.2); Lymphocytes Percent Auto 25.9 % (18.3-44.2); Mean Corpuscular HGB Conc 33.4 g/dl (32-36); Mean Corpuscular Hemoglobin 30.3 pg (26-34); Mean Corpuscular Volume 90.6 fl (80-100); Mean Platelet Volume 10.2 fl (7.4-10.4); Monocytes Absolute Auto 0.5 K/mm3 (0.1-0.6); Monocytes Percent Auto 6.8 % (2.6-8.5); Neutrophils Absolute Auto 4.2 K/mm3 (1.3-6.7); Neutrophils Percent Auto 64.1 % (45.5-73.1); Platelet Count Result 165 k/mm3 (150-375); Red Blood Count 3.73 M/mm3 (4.6-6.20); Red Cell Distribution Width 13.7 % (11.5-14.5); White Blood Count 6.6 K/mm3 (4.5-10.0)
[2023-12-07 16:47] LABS: Alanine Aminotransferase 21 U/L (6-50); Albumin Level 4.3 g/dL (3.5-5.1); Alkaline Phosphatase 27 U/L (38-126); Anion Gap 12 mmol/L (4-12); Aspartate Amino Transferase 28 U/L (17-59); Bilirubin,Total 0.6 mg/dL (0.2-1.3); Blood Urea Nitrogen 31 mg/dL (9-20); Calcium 9.2 mg/dL (8.4-10.2); Carbon Dioxide 22 mmol/L (22-30); Chloride 103 mmol/L (98-107); Estimated Glomerular Filt Rate 45; Glucose 103 mg/dL (65-110); Potassium 4.3 mmol/L (3.4-5.0); Sodium 137 mmol/L (137-145)
[2023-12-07 17:20] LABS: Carcinoembryonic Antigen 0.5 ng/mL (0.0-3.0)
== END 2023-12-07 13:25 | disposition home or self-care (01) ==
PROVIDERS: PCP Internal Medicine; Visit Provider Internal Medicine Hematology & Oncology
DX: C18.6 Malignant neoplasm of descending colon (principal)
CPT/HCPCS: 36415; 80053; 82378; 85025

== ENCOUNTER 2024-02-14 07:45 | Outpatient (CLI) | payer MEDICARE, SELFPAY ==
--- NOTE | ~2024-02-14 | US_ITS ---
EXAMINATION:US venous doppler LE LT INDICATION:History of DVT. TECHNIQUE: Multiple grayscale, color flow and Doppler images of the left lower extremity deep venous systems were obtained and reviewed. COMPARISON:Ultrasound dated 10/05/2023 FINDINGS: There is extensive deep venous thrombosis of the profunda femoral, femoral, popliteal, post erior tibial, peroneal, gastrocnemius veins. There is superficial thrombosis in the right or saphenou s vein. IMPRESSION: 1: Persistent extensive deep venous thrombosis of the left lower extremity veins. Reviewed, dictated and finalized at location B. IMPRESSION: 1: Persistent extensive deep venous thrombosis of the left lower extremity vein s.
== END 2024-02-14 07:46 | disposition home or self-care (01) ==
PROVIDERS: PCP Internal Medicine; Visit Provider Internal Medicine Hematology & Oncology
DX: I82.4Y2 Acute embolism and thrombosis of unspecified deep veins of left proximal lower extremity (principal)
CPT/HCPCS: 93971

== ENCOUNTER 2024-02-29 12:30 | Outpatient (CLI) | payer MEDICARE, SELFPAY ==
--- NOTE | ~2024-02-29 | CT_ITS ---
EXAMINATION: CT chest abdomen pelvis w con DATE: 02/29/2024 13:14 INDICATION: Malignant neoplasm of descending colon. TECHNIQUE: Computed tomography (CT) of the chest, abdomen, and pelvis was performed with 100 mL Omnip aque 350 intravenous contrast. Automated exposure control and iterative reconstruction technique were employed. The dose-length product was 1778.63 mGy-cm. COMPARISON: CT abdomen and pelvis 06/07/2023, chest CT 09/22/2018 FINDINGS: CHEST CT: There is mild emphysema. There is mild atelectasis bilaterally. There is a 9 mm nodule in left lung l ower lobe, stable from 09/22/18, likely benign. Calcified pulmonary nodules are consistent with old gr anulomatous disease. No pleural effusion. The heart size is normal. There are coronary artery calcifi cations. There are calcifications of the aortic valve. No pericardial effusion. There is mild thoraci c spondylosis. ABDOMEN/PELVIS CT: There are 2 masses in the liver with interrupted peripheral puddling of contrast measuring up to 4.2 cm, consistent with hemangiomas. The gallbladder, spleen, and adrenal glands are normal. Calcificatio ns of the pancreas are consistent with chronic pancreatitis. There are cysts in right kidney measurin g up to 4.8 cm. Left kidney is normal. The prostate is mildly enlarged. There are changes of right he micolectomy. There is calcified atherosclerosis of the aorta and many of the other arteries. There ar e no pathologically enlarged lymph nodes. There is no free intraperitoneal fluid. There is a widemout h umbilical hernia containing nonobstructed small bowel. There is severe lumbar spondylosis. IMPRESSION: 1. No evidence of metastatic disease. Reviewed, dictated and finalized at location A.
[2024-02-29 13:01] LABS: Estimated Glomerular Filt Rate 42
== END 2024-02-29 12:31 | disposition home or self-care (01) ==
PROVIDERS: PCP Internal Medicine; Visit Provider Internal Medicine Hematology & Oncology
DX: C18.6 Malignant neoplasm of descending colon (principal)
CPT/HCPCS: 71260; 74177; Q9967

== ENCOUNTER 2024-05-16 16:13 | Outpatient (CLI) | payer MEDICARE, SELFPAY ==
--- NOTE | ~2024-05-16 | US_ITS ---
EXAMINATION: US venous doppler [facility] DATE: 05/16/2024 17:19 INDICATION: Follow-up DVT of the left lower extremity, initially diagnosed in September 2023 TECHNIQUE: Grayscale ultrasound images without and with compression and Doppler ultrasound images of the left lower extremity veins were obtained. COMPARISON: 10/05/2023 and 02/14/2024 FINDINGS: The visualized portions of left common femoral vein, profunda (deep) femoral vein, femoral vein, post erior tibial veins, and greater saphenous vein outflow are patent. These demonstrate recanalization since prior examination dated 02/14/2024. Persistent thrombus within the left popliteal, peroneal and gastrocnemius veins. IMPRESSION: Evolution of deep venous thrombosis within the left lower extremity, as detailed above. Persistent thrombus within the left popliteal, peroneal and gastrocnemius veins. Reviewed, dictated and finalized at location A. [employer] IMPRESSION: Evolution of deep venous thrombosis within the left lower extremity, as detaile d above. Persistent thrombus within the left popliteal, peroneal and gastrocnemius veins .
== END 2024-05-16 16:14 | disposition home or self-care (01) ==
PROVIDERS: PCP Internal Medicine; Visit Provider Internal Medicine Hematology & Oncology
DX: I82.432 Acute embolism and thrombosis of left popliteal vein (principal); I82.452 Acute embolism and thrombosis of left peroneal vein; I82.462 Acute embolism and thrombosis of left calf muscular vein
CPT/HCPCS: 93971

== ENCOUNTER 2024-08-14 07:18 | Outpatient (CLI) | payer MEDICARE, SELFPAY ==
--- NOTE | ~2024-08-14 | US_ITS ---
LEFT LOWER EXTREMITY VENOUS ULTRASOUND Ordering provider: Baljinder Pena MD History: . acute DVT . Comparison: May 16, 2024 FINDINGS: --COMMON FEMORAL: Patent and free of thrombus. Normal compressibility, phasic flow and augmentation. --PROXIMAL SUPERFICIAL FEMORAL: Patent and free of thrombus. Normal compressibility, phasic flow and augmentation. --DISTAL SUPERFICIAL FEMORAL: Patent and free of thrombus. Normal compressibility, phasic flow and au gmentation. --POPLITEAL: Thrombosed. Partial compression --POSTERIOR TIBIAL: Patent and free of thrombus. Normal compressibility, phasic flow and augmentation . Thrombosis also seen in the lesser saphenous vein. IMPRESSION: Persistent thrombosis in the left popliteal vein. Reviewed, dictated and finalized at location A.
--- OUTSIDE RECORDS SUMMARY | 2024-08-14 07:23 | XMS_ITS | Clinical Summary ---
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 Name Role Phone Baljinder Pena MD Unavailable [phone] Rm Vee DO Primary Care Provider Allergies No known active allergies Medications finasteride (PROSCAR) 5 mg tablet Take one by mouth one time per day at bedtime 0 0 0 Active felodipine (PLENDIL) 10 mg 24 hr tablet take 1 tablet (10MG) by ORAL route every day 0 0 Active amitriptyline (ELAVIL) 10 mg tablet take 1 tablet (10MG) by oral route 3 times every day 0 2 Active terazosin (HYTRIN) 10 mg capsule Take one by mouth one time per day 0 0 7 Active tamsulosin (FLOMAX) 0.4 mg extended release capsule Take 1 capsule (0.4 mg total) by mouth daily 2 8 Active ferrous sulfate 325 mg (65 mg of elemental iron) tablet Take 1 tablet (325 mg total) by mouth 2 (two) times a day 2 9 Active ascorbic acid (VITAMIN C) 500 mg tablet,chewable Take 1 tablet/chew tab (500 mg total) by mouth daily Active loperamide (IMODIUM) 2 mg capsule TAKE 1 CAPSULE BY MOUTH EVERY 3 HOURS NEEDED FOR DIARRHEA OR LOOSE STOOLS 0 Active furosemide (LASIX) 20 mg tablet TAKE 1 TABLET BY MOUTH ONCE DAILY IN THE MORNING 1 Active hydroCHLOROthiaz nancy (MICROZIDE) 12.5 mg capsuleIndicatio ns:Hypertension associated with diabetes (HCC) Take 1 capsule (12.5 mg total) by mouth daily 90 capsule 2 1 Active Additional Information Patient not taking.Reported on 04/18/2024 hydrALAZINE (APRESOLINE) 50 mg tablet Take 1 tablet (50 mg total) by mouth 3 (three) times a day 2 Active hydroCHLOROthiaz nancy (HYDRODIURIL) 50 mg tablet Take 1 tablet (50 mg total) by mouth daily 3 Active ipratropium (ATROVENT) 21 mcg (0.03 %) nasal spray ADMINISTER 2 SPRAYS INTO EACH NOSTRIL THREE TIMES DAILY NEEDED FOR NASAL DRAINAGE. 4 Active apixaban (ELIQUIS) 5 mg tablet Take 1 tablet (5 mg total) by mouth 2 (two) times a day Active carvediloL (COREG) 6.25 mg tabletIndication s:Hypertension associated with diabetes (HCC) Take 1 tablet (6.25 mg total) by mouth 2 (two) times a day with meals 180 tablet 3 4 Active simvastatin (ZOCOR) 40 mg tabletIndication s:Hyperlipidemia associated with type 2 diabetes mellitus (HCC) Take 1 tablet (40 mg total) by mouth daily 90 tablet 2 4 Active fenofibrate micronized (LOFIBRA) 134 mg capsuleIndicatio ns:Hyperlipidemi a associated with type 2 diabetes mellitus ([facility]) Take 1 capsule (134 mg total) by mouth daily 90 capsule 3 4 Active lisinopriL (PRINIVIL,ZESTRI L) 40 mg tabletIndication s:Hypertension associated with diabetes (HCC) Take 1 tablet (40 mg total) by mouth daily 90 tablet 3 4 Active lancets (OneTouch Delica Lancets) 33 gauge miscIndications: Type 2 diabetes mellitus with hyperglycemia, with long-term current use of insulin ([facility]) Check blood sugar twice a day. 200 each 3 4 Active insulin glargine (LANTUS) 100 unit/mL (3 mL) pen for injectionIndicat ions:Type 2 diabetes mellitus with hyperglycemia, with long-term current use of insulin ([facility]) Inject 42-44 Units under the skin nightly 45 mL 3 4 03/09/20 25 Active enoxaparin (LOVENOX) 120 mg/0.8 mL syringe INJECT 1 EVERY 12 HOURS Active metFORMIN (GLUCOPHAGE) 850 mg tabletIndication s:Type 2 diabetes mellitus with hyperglycemia, with long-term current use of insulin (HCC) Take 1 tablet (850 mg total) by mouth 2 (two) times a day with meals 180 tablet 3 4 04/18/20 25 Active glimepiride (AMARYL) 4 mg tabletIndication s:Type 2 diabetes mellitus with hyperglycemia, with long-term current use of insulin ([facility]) Take 1 tablet (4 mg total) by mouth daily before breakfast 90 tablet 3 4 Active blood glucose diagnostic (QuotaDeckTouch Ultra Test) stripIndications :Type 2 diabetes mellitus with hyperglycemia, with long-term current use of insulin ([facility]),Essential hypertension One Touch Ultra Blue Dx: E11.65 insulin dependent. Check blood sugar 2 times daily. 600 each 1 4 Active pen needle, diabetic (TRUEplus Pen Needle) 32 gauge x 5/32 needleIndication s:Type 2 diabetes mellitus with hyperglycemia, with long-term current use of insulin ([facility]) Use 1 pen needle twice daily 100 each 11 5 Active Active Problems Problem Noted Date Diagnosed Date Morbid (severe) obesity due to excess calories 0 06/10/2023 Class 2 severe obesity due t o excess calories with serious comorbidity and body mass index (BMI) of 39.0 to 39.9 in adult 06/10/2023 Assessment & Plan (06/10/2023 9:30 AM K9 HANDLER): Discussed healthy diet and importance of regular physical activity (20- 30min/day, 150min/wk). Hyperlipidemia associated with type [address] 10/14/2017 Assessment & Plan (04/18/2024 9:35 AM K9 HANDLER): Chronic problem. Controlled on current Simvastatin 40mg & fenofibrate 134mg daily. Last lipid panel: 12/15/22 LDL=87, UJ=474. Will update labs. Does not mychart. Verified phone #/address to contact re: results. Assessment & Plan (10/28/2023 9:23 AM CDT): Chronic problem. Controlled on current Simvastatin 40mg & fenofibrate 134mg daily. Last lipid panel: 12/15/22 LDL=87, PK=180. Assessment & Plan (06/10/2023 8:51 AM K9 HANDLER): Chronic problem. Controlled on current Simvastatin 40mg. Last lipid panel: 12/15/22 LDL=87, WU=992. Assessment & Plan (12/08/2022 11:13 AM CDT): Chronic problem. Controlled on current Simvastatin 40mg. Last lipid panel: 07/17/20 LDL=62, MS=776. Will update labs today. Does not mychart. Verified phone #/address to contact re: results. Assessment & Plan (06/25/2022 12:17 PM K9 HANDLER): Chronic, controlled Will get report of lipid profile done recently Continue simvastatin Assessment & Plan (12/23/2021 11:13 AM CDT): Chronic, well controlled Low fat Low cholesterol diet Exercise Continue statin therapy Assessment & Plan (06/17/2021 3:09 PM K9 HANDLER): Chronic, well controlled Continue current meds, simvastatin 40 mg daily Assessment & Plan (11/14/2020 10:23 AM CDT): At goal on current medications. Continue statin therapy. Assessment & Plan (07/11/2020 10:32 AM K9 HANDLER): Will check lipid panel today Assessment & Plan (11/09/2019 10:08 AM CDT): Goal of treatment , LDL cholesterol less than 100 ( less than 70 in patients with history of heart attacks and / or strokes ) NonHDL cholesterol ( total cholesterol minus HDL cholesterol ) goal less than 130 ( less than 100 in patients with history of heart attacks and / or strokes ) Low cholesterol, low fat diet was discussed and advised. Daily exercise On statin therapy Assessment & Plan (06/02/2019 1:13 PM K9 HANDLER): At goal on current medications. Continue statin therapy. Assessment & Plan (01/19/2019 10:13 AM CDT): At goal on current medications. Continue statin therapy. Assessment & Plan (10/13/2018 9:40 AM CDT): Continue statin therapy Assessment & Plan (04/26/2018 3:35 PM K9 HANDLER): At goal on current medications. Assessment & Plan (10/14/2017 9:57 AM CDT): Goal of treatment , LDL cholesterol less than 100 ( less than 70 in patients with history of heart attacks and / or strokes ) NonHDL cholesterol ( total cholesterol minus HDL cholesterol ) goal less than 130 ( less than 100 in patients with history of heart attacks and / or strokes ) Low cholesterol, low fat diet was discussed and advised. Daily exercise On statin therapy Check lipids BMI 40.0-44.9, adult 12/24/2016 Assessment & Plan (11/14/2020 10:23 AM CDT): Importance of following diet and exercising discussed. Morbid obesity due to excess calories 12/24/2016 Assessment & Plan (07/11/2020 12:12 PM K9 HANDLER): Wt continues to increase. Importance of following diet and exercising discussed. Assessment & Plan (03/23/2017 8:55 AM K9 HANDLER): Importance of following diet and exercising discussed. Type 2 diabetes mellitus wit h hyperglycemia, with long-term current use of insulin 08/15/2013 Overview (08/13/2016): DMII WO CMP UNCNTRLD Assessment & Plan (04/18/2024 9:35 AM K9 HANDLER): Chronic problem. A1c improved from 6.9% 10/28/23 to now 6.7%. Current medications: Glimepiride 4mg daily Metformin 850mg twice daily with meals Levemir 42 units at bedtime Will update labs. Does not mychart. Verified phone #/address to contact re: results. UTD DM eye exam (01/14/24 mild NPDR wo D[facility]) Strive for regular exercise (30min most days) and diet (get at least 4-5 servings of fruit and veggies daily, avoid processed foods, increase lean protein intake and decrease carb portions as well as fruit juices, regular soda & desserts). Watch carbs and simple sugars. Check the blood sugar 1-2x/day. Check the feet daily for skin breakdown and infection. Assessment & Plan (10/28/2023 9:50 AM CDT): Chronic problem. A1c improved from 8.2% 06/10/23 to now 6.9%. Current medications: Glimepiride 4mg daily Metformin 850mg twice daily with meals Levemir 42 units at bedtime UTD on labs. UTD DM eye exam (12/17/22 [facility] in [place]) Strive for regular exercise (30min most days) and diet (get at least 4-5 servings of fruit and veggies daily, avoid processed foods, increase lean protein intake and decrease carb portions as well as fruit juices, regular soda & desserts). Watch carbs and simple sugars. Check the blood sugar 1-2x/day. Check the feet daily for skin breakdown and infection. Assessment & Plan (06/10/2023 9:33 AM K9 HANDLER): Chronic problem. A1c juan from 7.7% to now 8.2%. Will increase lantus to 42 units nightly due to higher blood sugars. Will increase by 2 units weekly if fasting blood sugars in the morning less not less than 150 without hypoglycemia. Current medications: Glimepiride 4mg daily Metformin 850mg twice daily with meals Levemir 42 units at bedtime UTD on labs. DM eye exam last year at [facility] in [place] & has appt set for 12/17/22. 2nd request letter sent to get copy of report. Strive for regular exercise (30min most days) and diet (get at least 4-5 servings of fruit and veggies daily, avoid processed foods, increase lean protein intake and decrease carb portions as well as fruit juices, regular soda & desserts). Watch carbs and simple sugars. Check the blood sugar 1-2x/day. Check the feet daily for skin breakdown and infection. Assessment & Plan (12/08/2022 11:35 AM CDT): Chronic problem. A1c stable at 7.7% (was 7.8% 06/2022). Current medications: Glimepiride 4mg daily Metformin 850mg twice daily with meals Levemir 40 units at bedtime Will update labs today. Will update labs today. Does not mychart. Verified phone #/address to contact re: results. DM eye exam last year at [facility] in [place] & has appt set for 12/17/22. Letter sent to get copy of report. Strive for regular exercise (30min most days) and diet (get at least 4-5 servings of fruit and veggies daily, avoid processed foods, increase lean protein intake and decrease carb portions as well as fruit juices, regular soda & desserts). Watch carbs and simple sugars. Check the blood sugar 1-2x/day. Check the feet daily for skin breakdown and infection. Assessment & Plan (06/25/2022 12:18 PM K9 HANDLER): Hba1c was Lab Results Component Value Date HGBA1C 7.8 06/25/2022 today, indicating adequate DM control Goal Hba1c and blood glucose explained Diet and exercise were advised Prevention and treatment of hyypoglcyemia were discussed with the patient Blood glucose monitoring : 1-2 x day Adjustment to medications: Continue current regimen with glimepiride 4 mg daily, metformin and Levemir insulin 40 units HS Assessment & Plan (12/23/2021 11:14 AM CDT): Hba1c was Lab Results Component Value Date HGBA1C 7.4 12/23/2021 today, indicating adequate DM control Goal Hba1c and blood glucose explained Diet and exercise were advised Prevention and treatment of hyypoglcyemia were discussed with the patient Blood glucose monitoring : 2 x day Adjustment to medications: Continue current Assessment & Plan (06/17/2021 3:10 PM K9 HANDLER): Hba1c was Lab Results Component Value Date HGBA1C 7.1 06/17/2021 today, indicating adequate DM control Goal Hba1c and blood glucose explained Diet and exercise were advised Prevention and treatment of hyypoglcyemia were discussed with the patient Blood glucose monitoring : 2 x day Adjustment to medications: Continue current regimen with glimepiride, metformin and Levemir 40 units daily Assessment & Plan (11/14/2020 10:22 AM CDT): A1c 6.3 without hypoglycemia or BG < 100. Continue medication at current dose. Cannot examine feet today d/t thigh high wraps. Foot care specifics reviewed. Assessment & Plan (07/11/2020 12:11 PM K9 HANDLER): A1c 6.4. Continue current medication plan. BG goals reviewed. He is to keep BG > 100 and < 200. Assessment & Plan (11/09/2019 10:05 AM CDT): Hba1c was Lab Results Component Value Date HGBA1C 6.9 11/09/2019 today, indicating adequate DM control, with risk of hypoglycemia 1800 calorie, consistent carb diet recommended, no more than 3-45 grams of carbs per meal, avoiding concentrated sweet drinks and rapid absorption carbs. 25-45 min daily aerobic and resistance exercise recommended Prevention and treatment of hyypoglcyemia discussed. Blood glucose monitoring with fingers sticks. Medications: Lower Glimepiride 4 mg once a day Assessment & Plan (06/02/2019 1:15 PM K9 HANDLER): Your A1c is 6.8. No hypoglycemia. Appetite stable. For now BG goal is mid 100's. Continue same medication plan. Advised to reduce Levemir if BG trend < 100. Advised glimepiride with first meal of the day. Assessment & Plan (01/19/2019 10:18 AM CDT): A1c 6.1 but am concerned about potential for hypoglycemia if appetite diminishes. As long as appetite is stable, continue with glimepiride and Levemir 30. Advised to call if trends under 100 and will adjust glimepiride. D/T diarrhea with reported occasional skin breakdown which has worsened with chemo, will try holding metformin for 1-2 weeks and observe sx and BG patterns. Provided with CF for days with prednisone prior to chemo prn. 2:50 > 200. Diet reviewed, amount of carbs per meal and amount allowed for smoothies. Can use Glucerna as a supplement if your appetite diminished. Assessment & Plan (10/13/2018 9:45 AM CDT): A1c 7.0 with anemia. However home BG readings mostly at goal. No change to current medication plan. BG goals reviewed. Advised to contact office and send in BG log if appetite changes with chemo, prednisone prescribed or with change in BG trends. Action of current meds reviewed. Potential insulin options discussed. Assessment & Plan (04/26/2018 3:33 PM K9 HANDLER): A1c 7.4. Still acceptable for age. Continue current medication plan. BG goals reviewed. Assessment & Plan (10/14/2017 9:51 AM CDT): Your Hba1c today was: Lab Results Component Value Date HGBA1C 7.1 10/14/2017 meaning a 3 month average sugar of : 150 Your goal hba1c is under 7.0 to prevent mcfp diabetes complications ( eye , kidney and nerve damage ) . Your goal sugars are in the 90-130 range Daily aerobic ( walking, riding a bike, swimming ) and resistance exercises ( light weight lifting, resistance band stretching ) for at least 30 minutes is recommended If you can not walk, chair exercises is very acceptable. As little as 15-20 minutes exercise , in one or two sessions a day, is still very helpful and will help to improve your diabetes control . Eat small portion meals, no more than 1800 calories Diet Try to eat not more than than 2-3 servings of carbs ( starches ) wiith your meals. Avoid soft drinks, including regular sodas , fruit juices and sweetened tea. Drink water instead. Eat plenty of green and leafy vegetables, including salads. Take your medications regularly,including your insulin injections. Monitor your sugar levels with finger sticks regularly and keep a log sheet or book. Bring your sugar meter and /or a log book or log sheet to every office visit. Lower Levemir to 25 units. Assessment & Plan (03/23/2017 8:55 AM K9 HANDLER): A1c is 6.9 without reported hypoglycemia. Continue current medication plan. BG goals reviewed. Needs to focus on diet and exercise. Assessment & Plan (12/24/2016 10:01 AM CDT): Hba1c was 6.3 today, indicating adequate DM control 1800 calorie, consistent carb diet recommended 30 min daily aerobic and resistance exercise recommended Foot care discused. Prevention and treatment of hyypoglcyemia discussed. Stop Januvia Hypertension associated with diabetes 01/26/2012 Overview (08/13/2016): Unspecified essential hypertension Assessment & Plan (04/18/2024 9:35 AM K9 HANDLER): Chronic problem. Currently taking Carvedilol 6.25mg bid, lisinopril 40mg, hydralazine 50mg tid, & felodipine 10mg daily. Will update labs. Does not mychart. Verified phone #/address to contact re: results. Assessment & Plan (10/28/2023 9:23 AM CDT): Chronic problem. Currently taking Carvedilol 6.25mg bid, lisinopril 40mg, hydralazine 50mg tid, HCTZ 50mg daily & felodipine 10mg daily. Assessment & Plan (06/10/2023 8:51 AM K9 HANDLER): Chronic problem. Currently taking Carvedilol 6.25mg bid, lisinopril 40mg, hydralazine 50mg tid, HCTZ 12.5mg daily, hytrin 10mg daily & felodipine 10mg daily. Assessment & Plan (12/08/2022 11:38 AM CDT): Chronic problem. Currently taking Carvedilol 6.25mg bid, lisinopril 40mg, hydralazine 50mg tid, HCTZ 12.5mg daily & felodipine 10mg daily. BP elevated upon rooming & at recheck (but improved). Aware to monitor at home. To call us/PCP if it remains elevated. Assessment & Plan (06/25/2022 12:18 PM K9 HANDLER): Chronic, well-controlled Continue lisinopril Assessment & Plan (12/23/2021 11:13 AM CDT): Chronic, well controlled Continue current meds Assessment & Plan (06/17/2021 3:10 PM K9 HANDLER): Chronic, well controlled Continue current meds Assessment & Plan (07/11/2020 10:32 AM K9 HANDLER): Controlled on current medications. Continue plan. Assessment & Plan (11/09/2019 10:08 AM CDT): Goal blood pressure is less than 140/85 Low salt diet recommended Daily aerobic exercise Continue current meds, including RAFAEL-I or ARB, with Lisinopril Assessment & Plan (06/02/2019 1:13 PM K9 HANDLER): Controlled on current medications. Continue plan. Assessment & Plan (01/19/2019 10:13 AM CDT): Controlled on current medications. Continue plan. Assessment & Plan (10/13/2018 9:42 AM CDT): Check home BP readings. If continues < 60, record and contact PCP Assessment & Plan (04/26/2018 3:35 PM K9 HANDLER): Controlled on current medications. Assessment & Plan (10/14/2017 9:57 AM CDT): Goal blood pressure is less than 140/85 Low salt diet recommended Daily aerobic exercise Continue current meds, including RAFAEL-I or ARB Assessment & Plan (03/23/2017 8:55 AM K9 HANDLER): Controlled on current medications. 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 Needs to increase activity indoors if too hot outside. Pure hypercholesterolemia 01/17/2013 Overview (08/12/2016): PURE HYPERCHOLESTEROLEM Assessment & Plan (12/24/2016 10:01 AM CDT): Goal of treatment , LDL cholesterol less than 100 ( less than 70 in patients with history of heart attacks and / or strokes ) NonHDL cholesterol goal less than 130 / 100 Lipids at goal. Continue statin therapy Low cholesterol diet, exercise advised. Hyperlipidemia 07/19/2012 12/08/2022 Overview (08/12/2016): HYPERLIPIDEMIA NEC/NOS Assessment & Plan (03/23/2017 8:56 AM K9 HANDLER): Continue statin and fenofibrate Surgical History Surgery Date Site/Laterality Comments KNEE SURGERY Right Medical History Medical History Date Comments Hyperlipidemia Hyperlipidemia Diabetes mellitus (HCC) Diabetes Hypertension Hypertension Hx Other Medical Not Claustropho bic; Comments: GFC 01/02/2014 - Colon cancer (HCC) History of colon resection History of removal of Port-a-Cath Covid-19 05/10/2023 Family History Medical History Relation Name Comments Lung cancer Other 1 Family history of Cancer -lung; Other Other 2 Family history of Cancer -mesothelioma; Relation Name Status Comments Other 1 Other 2 Social History Tobacco Use Types Packs/Day Years Used Date Smoking Tobacco: Former Smokeless Tobacco: Never Alcohol Use Standard Drinks/Week Comments Yes 0 (1 standard drink = 0.6 oz pur e alcohol) PHQ-2 Answer Date Recorded PHQ-2 Total Score (If total score is 3 or more points, staff should administer the PHQ-9) 0 12/23/2021 Sex and Gender Information Value Date Recorded Sex Assigned at Not on file Legal Sex Male 1:16 AM K9 HANDLER Gender Identity Not on file Sexual Orientation Not on file Obstetrics History Last Filed Vital Signs Vital Sign Reading Time Taken Comments Blood Pressure 134/68 04/18/2024 8:51 AM K9 HANDLER Pulse 65 04/18/2024 8:51 AM K9 HANDLER Temperature - - Respiratory Rate 16 04/18/2024 8:51 AM K9 HANDLER Oxygen Saturation - - Inhaled Oxygen Concentration - - Weight 123.4 kg (272 lb) 04/18/2024 8:51 AM K9 HANDLER Height 172.7 cm (5' 7.99 ) 04/18/2024 8:51 AM CS T Body Mass Index 41.37 04/18/2024 8:51 AM K9 HANDLER Plan of Treatment Health Maintenance Due Date Last Done Comments Fall Risk Assessment 1942 DTaP/Tdap/Td Vaccine (1 - Tdap) 1953 Hepatitis B Screening 1960 Well Visit 65+ 10/07/2007 Depression Screening 12/23/2022 12/23/2021, 11/14/2020, 11/09/2019, Additional history exists Influenza Vaccine (#1) 2024 9, 01/24/2018, 01/17/2017, Additional history exists Hemoglobin A1C 10/17/2024 04/18/2024, 10/09, 06/10/2023, Additional history exists Foot Exam 10/27/2024 10/28/2023, 0706/2019, 10/13/2018, Additional history exists Dilated Eye Exam 01/13/2025 01/14/2024, 02/2023, 12/17/2022, Additional history exists Albumin Creatinine Ratio, Urine 05/09/2025 05/09/2024, 12/15/2022, 07/17/2020, Additional history exists Lipid Panel 05/09/2025 05/09/2024, 08/0 12/2022, 07/17/2020, Additional history exists eGFR 05/09/2025 05/09/2024, 05/11, 07/17/2020, Additional history exists Pneumococcal vaccine 65+ Completed 01/21/2017, 01/08 Zoster Vaccine Completed 01/02/2018, 11/02/2017 Abdominal Aortic Aneurysm (A AA) Screen Completed 09/23/2020, 03/19/2020, 06/05/2019 Procedures Procedure Name Priority Date/Time Associated Diagnosis Comments COMPREHENSIVE METABOLIC PANEL Routine 05/09/2024 8:27 AM K9 HANDLER LIPID PANEL Routine 05/09/2024 8:27 AM K9 HANDLER ALBUMIN CREATININE RATIO, URINE Routine 05/09/2024 8:27 AM K9 HANDLER POCT HEMOGLOBIN A1C Routine 04/18/2024 8 :55 AM K9 HANDLER Type 2 diabetes mellitus with hyperglycemia, with long-term current use of insulin (HCC) HM DIABETES EYE EXAM Routine 01/14/2024 7:56 AM CDT from Last 3 Months or Most Recently Relevant to Health Maintenance Results * (ABNORMAL) Albumin Creatinine Ratio, Urine (05/09/2024 8:27 AM K9 HANDLER) Creatinine, ur 69 20 - 320 mg/dL [facility] Microalbumin, ur 37.6 See Note: mg/dL [facility] Comment: Reference Range: Reference Range Not established Verified by repeat analysis. Microalbumin/creat ratio 545(H) <30 mg/g creat [facility] Comment: The ADA defines abnormalities in albumin excretion as follows: Albuminuria Category Result (mg/g creatinine) Normal to Mildly increased <30 Moderately increased 30-299 Severely increased > OR = 300 The ADA recommends that at least two of three specimens collected within a 3-6 month period be abnormal before considering a patient to be within a diagnostic category. 05/09/2024 8:27 AM K9 HANDLER 05/09/2024 8:27 AM K9 HANDLER Narrative [facility] - 05/10/2024 5:10 AM K9 HANDLER FASTING:NO FASTING: NO us Katharine Dewitt AUTOMATIC NAILING MACHINE OPERATOR LAB URINE ORDERABLES Sharda puga Result KAREN Soriano [address] [address] [address] * (ABNORMAL) Lipid panel (05/09/2024 8:27 AM K9 HANDLER) Pathologist [facility] Cholesterol 180 <200 mg/dL [facility]is Zapata HDL 34(L) > OR = 40 mg/dL [facility] Zapata Triglycerides 221(H) <150 mg/dL [facility]is Zaptaa Comment: If a non-fasting specimen was collected, consider repeat triglyceride testing on a fasting specimen if clinically indicated. Eitan et al. J. of Clin. Lipidol. 2015;9:129-169. LDL 113(H) mg/dL (calc) Karen Zapata Comment: Reference range: <100 Desirable range <100 mg/dL for primary prevention; <70 mg/dL for patients with CHD or diabetic patients with > or = 2 CHD risk factors. LDL-C is now calculated using the Brodie-Polo calculation, which is a validated novel method providing better accuracy than the Friedewald equation in the estimation of LDL-C. Brodie BALDERAS et al. BATSHEVA. 2013;310(19): 1027-2418 (http://education.contrib.com.iPAYst/faq/DNU590) Chol/HDL ratio 5.3(H) <5.0 (calc) Karen Zapata Non-HDL, (LDL+VLDL) 146(H) <130 mg/dL (calc) Karen Zapata Comment: For patients with diabetes plus 1 major ASCVD risk factor, treating to a non-HDL-C goal of <100 mg/dL (LDL-C of <70 mg/dL) is considered a therapeutic option. 05/09/2024 8:27 AM K9 HANDLER 05/09/2024 8:27 AM K9 HANDLER Narrative [facility] - 05/10/2024 5:10 AM K9 HANDLER FASTING:NO FASTING: NO Katharine Dewitt AUTOMATIC NAILING MACHINE OPERATOR LAB BLOOD ORDERABLES Sharda puga Result KAREN [facility] [address] [place] [address] * (ABNORMAL) Comprehensive metabolic panel (05/09/2024 8:27 AM K9 HANDLER) Glucose 154(H) 65 - 139 mg/dL Karen eVenuesGenna Zapata Comment: Non-fasting reference interval BUN 31(H) 7 - 25 mg/dL Karen Zapata Creatinine 1.46(H) 0.70 - 1.22 mg/dL Karen eVenuesGenna Zapata eGFR 48(L) > OR = 60 mL/min/1.7 3m2 Karen BiomemeGenna Zapata BUN/creat ratio 21 6 - 22 (calc) Karen [facility] Zapata Sodium 138 135 - 146 mmol/L Karen Biom[facility]Genna Zapata Potassium, pl 4.4 3.5 - 5.3 mmol/L [facility] Zapata Chloride 108 98 - 110 mmol/L Karen [facility]- acosta Zapata CO2 23 20 - 32 mmol/L Karen Hernandez-Genna Zapata Calcium 8.8 8.6 - 10.3 mg/dL [facility] Zapata Protein, sr 6.3 6.1 - 8.1 g/dL [facility] Zapata Albumin 3.9 3.6 - 5.1 g/dL Karen [facility]na shane Benny GLOBULIN 2.4 1.9 - 3.7 g/dL (calc) Karen [facility] Zapata Alb/glob ratio 1.6 1.0 - 2.5 (calc) Karen Biom[facility]Genna Zapata Bilirubin, total 0.4 0.2 - 1.2 mg/dL [facility] Zapata Alk phos 20(L) 35 - 144 U/L Karen Biomeme-Genna shane Benny AST 24 10 - 35 U/L [facility] eVenuesGenna Zapata ALT (SGPT) 28 9 - 46 U/L [facility] shane Benny 05/09/2024 8:27 AM K9 HANDLER 05/09/2024 8:27 AM K9 HANDLER Narrative [facility] - 05/10/2024 5:10 AM K9 HANDLER FASTING:NO FASTING: NO Katharine Dewitt AUTOMATIC NAILING MACHINE OPERATOR LAB BLOOD ORDERABLES Sharda l Result [facility] [address] [place] [address] * (ABNORMAL) POCT hemoglobin A1c (04/18/2024 8:55 AM K9 HANDLER) Hemoglobin A1C, POC 6.7 4.0 - 5.6 % Blood 04/18/2024 8:55 AM K9 HANDLER Katharine Dewitt AUTOMATIC NAILING MACHINE OPERATOR POINT OF CARE TEST ORDERA BLES Final Result * (ABNORMAL) DIABETES EYE EXAM (01/14/2024 7:56 AM CDT) Historical Provider HEALTH MAINTENANCE Edited Result - Final from Last 3 Months or Most Recently Relevant to Health Maintenance Insurance [place] [address] MEDICARE COMMERCIAL GENERIC Care Teams Automatic Brine Mixer Operator Relationship Specialty Start Date End Date Rm Vee DO [address] [facility] [address] [place] [address] PCP - General Internal Medicine 04/18/24 Baljinder Pena MD [address] [place] [address] Referring Physician Hematology 06/25/22
--- OUTSIDE RECORDS SUMMARY | 2024-08-14 07:23 | XMS_ITS | Continuity of Care Document ---
Author Organization [facility] Address [address] [facility] [address] [place] [address] Phone Care Team Providers Care Lopper Name Role Phone Durán OD, Yifan Unavailable Unavailable Procedures Procedure Date Office/outpatient Visit, Est Office/outpatient Visit, Est Eye Exam & Treatment Refraction Eye Exam & Treatment Refraction Advance Directives Directive Yes / No Effective Date File Name No Information Encounters Encounter Description Practice Location Reason(s) For Visit Diagnoses Date Provider Providers Copied on Encounter Office/outpat ient Visit, Est [facility], [address], [place], [place], [address], [place] tel:[phone] [facility] No Information 2-201 0 Durán OD Yifan. [address] [facility] [address], [address], [place], [address], [place]. tel:[phone] Referring Provider: Vincent Kline MD, [address] [place] [address] [address], [place], [address]. tel:[phone] Office/outpat ient Visit, Est [facility], [address], [place], [place], [address], [place] tel:[phone] [facility] No Information 2-200 9 Durán OD Yifan. [address] [facility] , [address], [place], [address], [place]. tel:[phone] [facility], [address], [place], [place], [address], [place] tel:[phone] [facility] No Information Nov-0 7-200 8 Durán OD Yifan. [address] [facility] , [address], [place], [address], [place]. tel:[phone] [facility], [address], [place], [place], [address], [place] tel:[phone] [facility] No Information Nov-0 8-200 7 Durán OD Yifan. [address] [facility] , [address], [place], [place], [facility], [place]. tel:[phone] Family History Family Member Type Diagnosis Age [...]
--- OUTSIDE RECORDS SUMMARY | 2024-08-14 07:23 | XMS_ITS | Referral Summary ---
Author Organization [facility] 8 [facility] Address [address] [place] [address] Care Team Providers Care Merchant Mariner Name Role Phone Baljinder Pena MD Unavailable [phone] Rm Vee DO Primary Care Provider [phone] Allergies No known active allergies Medications finasteride [...] a associated with type 2 diabetes mellitus ([facility]) Take 1 capsule (134 mg total) by mouth daily 90 capsule 3 4 Active lisinopriL (PRINIVIL,ZESTRI L) 40 mg tabletIndication s:Hypertension associated with diabetes (HCC) Take 1 tablet (40 mg total) by mouth daily 90 tablet 3 4 Active lancets (OneTouch Delica Lancets) 33 gauge miscIndications: Type 2 diabetes mellitus with hyperglycemia, with long-term current use of insulin ([facility]) Check blood sugar twice a day. 200 each 3 4 Active insulin glargine (LANTUS) 100 unit/mL (3 mL) pen for injectionIndicat ions:Type 2 diabetes mellitus with hyperglycemia, with long-term current use of insulin ([facility]) Inject 42-44 Units under the [...] hyperglycemia, with long-term current use of insulin ([facility]) Take 1 tablet (4 mg total) by mouth daily before breakfast 90 tablet 3 4 Active blood glucose diagnostic (BenesightTouch Ultra Test) stripIndications :Type 2 diabetes mellitus with hyperglycemia, with long-term current use of insulin ([facility]),Essential hypertension One Touch Ultra Blue Dx: E11.65 insulin dependent. Check blood sugar 2 times daily. 600 each 1 4 Active pen needle, diabetic (TRUEplus Pen Needle) 32 gauge x 5/32 needleIndication s:Type 2 diabetes mellitus with hyperglycemia, with long-term current use of insulin ([facility]) Use 1 pen needle twice daily 100 each 11 5 Active Active Problems Problem Noted Date Diagnosed Date Morbid (severe) obesity due to excess calories 0 06/10/2023 Class 2 severe obesity due t o excess calories with serious comorbidity and body mass index (BMI) of 39.0 to 39.9 in adult 06/10/2023 Assessment & Plan (06/10/2023 9:30 AM CUSHION BUILDER): Discussed healthy diet and importance of regular physical activity (20- 30min/day, 150min/wk). Hyperlipidemia associated with type [address] 10/14/2017 Assessment & Plan (04/18/2024 9:35 AM CUSHION BUILDER): Chronic problem. Controlled on current Simvastatin 40mg & fenofibrate 134mg daily. Last lipid panel: 12/15/22 LDL=87, FF=744. Will update labs. Does not mychart. Verified phone #/address to contact re: results. Assessment & Plan (10/28/2023 9:23 AM CDT): Chronic problem. Controlled on current Simvastatin 40mg & fenofibrate 134mg daily. Last lipid panel: 12/15/22 LDL=87, IF=376. Assessment & Plan (06/10/2023 8:51 AM CUSHION BUILDER): Chronic problem. Controlled on current Simvastatin 40mg. Last lipid panel: 12/15/22 LDL=87, GR=221. Assessment & Plan (12/08/2022 11:13 AM CDT): Chronic problem. Controlled on current Simvastatin 40mg. Last lipid panel: 07/17/20 LDL=62, PU=981. Will update labs today. Does not mychart. Verified phone #/address to contact re: results. Assessment & Plan (06/25/2022 12:17 PM CUSHION BUILDER): Chronic, controlled Will get report of lipid profile done recently Continue simvastatin Assessment & Plan (12/23/2021 11:13 AM CDT): Chronic, well controlled Low fat Low cholesterol diet Exercise Continue statin therapy Assessment & Plan (06/17/2021 3:09 PM CUSHION BUILDER): Chronic, well controlled Continue current meds, simvastatin 40 mg daily Assessment & Plan (11/14/2020 10:23 AM CDT): At goal on current medications. Continue statin therapy. Assessment & Plan (07/11/2020 10:32 AM CUSHION BUILDER): Will check lipid panel today Assessment & [...] therapy Assessment & Plan (06/02/2019 1:13 PM CUSHION BUILDER): At goal on current medications. Continue statin therapy. Assessment & Plan (01/19/2019 10:13 AM CDT): At goal on current medications. Continue statin therapy. Assessment & Plan (10/13/2018 9:40 AM CDT): Continue statin therapy Assessment & Plan (04/26/2018 3:35 PM CUSHION BUILDER): At goal on current medications. Assessment & [...] 12/24/2016 Assessment & Plan (07/11/2020 12:12 PM CUSHION BUILDER): Wt continues to increase. Importance of following diet and exercising discussed. Assessment & Plan (03/23/2017 8:55 AM CUSHION BUILDER): Importance of following diet and exercising discussed. Type 2 diabetes mellitus wit h hyperglycemia, with long-term current use of insulin 08/15/2013 Overview (08/13/2016): DMII WO CMP UNCNTRLD Assessment & Plan (04/18/2024 9:35 AM CUSHION BUILDER): Chronic problem. A1c improved from 6.9% 10/28/23 to now 6.7%. Current medications: Glimepiride 4mg daily Metformin 850mg twice daily with meals Levemir 42 units at bedtime Will update labs. Does not mychart. Verified phone #/address to contact re: results. UTD DM eye exam (01/14/24 mild NPDR wo DME [facility]) Strive for regular exercise (30min most days) [...] on labs. UTD DM eye exam (12/17/22 [facility] in [place]) Strive for regular exercise (30min most days) [...] infection. Assessment & Plan (06/10/2023 9:33 AM CUSHION BUILDER): Chronic problem. A1c juan from 7.7% to [...] labs. DM eye exam last year at [facility] in [place] & has appt set for 12/17/22. 2nd [...] results. DM eye exam last year at [facility] in [place] & has appt set for 12/17/22. Letter [...] infection. Assessment & Plan (06/25/2022 12:18 PM CUSHION BUILDER): Hba1c was Lab Results Component Value Date [...] current Assessment & Plan (06/17/2021 3:10 PM CUSHION BUILDER): Hba1c was Lab Results Component Value Date [...] reviewed. Assessment & Plan (07/11/2020 12:11 PM CUSHION BUILDER): A1c 6.4. Continue current medication plan. BG [...] day Assessment & Plan (06/02/2019 1:15 PM CUSHION BUILDER): Your A1c is 6.8. No hypoglycemia. Appetite [...] discussed. Assessment & Plan (04/26/2018 3:33 PM CUSHION BUILDER): A1c 7.4. Still acceptable for age. Continue current medication plan. BG goals reviewed. Assessment & Plan (10/14/2017 9:51 AM CDT): Your Hba1c today was: Lab Results Component Value Date HGBA1C 7.1 10/14/2017 meaning a 3 month average sugar of : 150 Your goal hba1c is under 7.0 to prevent correction diabetes complications ( eye , kidney and [...] units. Assessment & Plan (03/23/2017 8:55 AM CUSHION BUILDER): A1c is 6.9 without reported hypoglycemia. Continue [...] hypertension Assessment & Plan (04/18/2024 9:35 AM CUSHION BUILDER): Chronic problem. Currently taking Carvedilol 6.25mg bid, lisinopril 40mg, hydralazine 50mg tid, & felodipine 10mg daily. Will update labs. Does not mychart. Verified phone #/address to contact re: results. Assessment & Plan (10/28/2023 9:23 AM CDT): Chronic problem. Currently taking Carvedilol 6.25mg bid, lisinopril 40mg, hydralazine 50mg tid, HCTZ 50mg daily & felodipine 10mg daily. Assessment & Plan (06/10/2023 8:51 AM CUSHION BUILDER): Chronic problem. Currently taking Carvedilol 6.25mg bid, [...] elevated. Assessment & Plan (06/25/2022 12:18 PM CUSHION BUILDER): Chronic, well-controlled Continue lisinopril Assessment & Plan (12/23/2021 11:13 AM CDT): Chronic, well controlled Continue current meds Assessment & Plan (06/17/2021 3:10 PM CUSHION BUILDER): Chronic, well controlled Continue current meds Assessment & Plan (07/11/2020 10:32 AM CUSHION BUILDER): Controlled on current medications. Continue plan. Assessment & Plan (11/09/2019 10:08 AM CDT): Goal blood pressure is less than 140/85 Low salt diet recommended Daily aerobic exercise Continue current meds, including RAFAEL-I or ARB, with Lisinopril Assessment & Plan (06/02/2019 1:13 PM CUSHION BUILDER): Controlled on current medications. Continue plan. Assessment & Plan (01/19/2019 10:13 AM CDT): Controlled on current medications. Continue plan. Assessment & Plan (10/13/2018 9:42 AM CDT): Check home BP readings. If continues < 60, record and contact PCP Assessment & Plan (04/26/2018 3:35 PM CUSHION BUILDER): Controlled on current medications. Assessment & Plan (10/14/2017 9:57 AM CDT): Goal blood pressure is less than 140/85 Low salt diet recommended Daily aerobic exercise Continue current meds, including RAFAEL-I or ARB Assessment & Plan (03/23/2017 8:55 AM CUSHION BUILDER): Controlled on current medications. Assessment & Plan [...] 12/08/2022 12/08/2022 Body mass index 40.0-44.9, adult ([facility]) 12/08/2022 12/08/2022 Class 3 severe obesity due [...] NEC/NOS Assessment & Plan (03/23/2017 8:56 AM CUSHION BUILDER): Continue statin and fenofibrate Social History Tobacco Use Types Packs/Day Years [...] on file Legal Sex Male 1:16 AM CUSHION BUILDER Gender Identity Not on file Sexual Orientation Not on file Last Filed Vital Signs Vital Sign Reading Time Taken Comments Blood Pressure 134/68 04/18/2024 8:51 AM CUSHION BUILDER Pulse 65 04/18/2024 8:51 AM CUSHION BUILDER Temperature - - Respiratory Rate 16 04/18/2024 8:51 AM CUSHION BUILDER Oxygen Saturation - - Inhaled Oxygen Concentration - - Weight 123.4 kg (272 lb) 04/18/2024 8:51 AM CUSHION BUILDER Height 172.7 cm (5' 7.99 ) 04/18/2024 8:51 AM CS T Body Mass Index 41.37 04/18/2024 8:51 AM CUSHION BUILDER Plan of Treatment Not on file Procedures Procedure Name Priority Date/Time Associated Diagnosis Comments COMPREHENSIVE METABOLIC PANEL Routine 05/09/2024 8:27 AM CUSHION BUILDER LIPID PANEL Routine 05/09/2024 8:27 AM CUSHION BUILDER ALBUMIN CREATININE RATIO, URINE Routine 05/09/2024 8:27 AM CUSHION BUILDER POCT HEMOGLOBIN A1C Routine 04/18/2024 8 :55 AM CUSHION BUILDER Type 2 diabetes mellitus with hyperglycemia, with long-term current use of insulin (HCC) DIABETES EYE EXAM Routine 01/14/2024 7:56 AM CDT from Last 3 Months or Most Recently Relevant to Health Maintenance Results * (ABNORMAL) Albumin Creatinine Ratio, Urine (05/09/2024 8:27 AM CUSHION BUILDER) Creatinine, ur 69 20 - 320 mg/dL [...] within a diagnostic category. 05/09/2024 8:27 AM CUSHION BUILDER 05/09/2024 8:27 AM CUSHION BUILDER Narrative [facility] - 05/10/2024 5:10 AM CUSHION BUILDER FASTING:NO FASTING: NO Katharine Dewitt GROUNDSKEEPING MAINTENANCE LAB URINE ORDERABLES Sharda puga Result QUEST [facility]Deana [address] [place] [address] * (ABNORMAL) Lipid panel (05/09/2024 8:27 AM CUSHION BUILDER) Pathologist [facility] Cholesterol 180 <200 mg/dL Level ChefGenna Zapata HDL 34(L) > OR = 40 mg/dL Level ChefGenna Zapata Triglycerides 221(H) <150 mg/dL uShipMoris Zapata Comment: If a non-fasting specimen was collected, consider repeat triglyceride testing on a fasting specimen if clinically indicated. Eitan et al. J. of Clin. Lipidol. 2015;9:129-169. LDL 113(H) mg/dL (calc) uShipMoris Zapata Comment: Reference range: <100 Desirable range <100 mg/dL for primary prevention; <70 mg/dL for patients with CHD or diabetic patients with > or = 2 CHD risk factors. LDL-C is now calculated using the Brodie-Polo calculation, which is a validated novel method providing better accuracy than the Friedewald equation in the estimation of LDL-C. Brodie BALDERAS et al. BATSHEVA. 2013;310(19): 8198-2346 (http://education.CHOOMOGO.In*Situ Architecture/faq/DSE381) Chol/HDL ratio 5.3(H) <5.0 (calc) uShipMoris Zapata Non-HDL, (LDL+VLDL) 146(H) <130 mg/dL (calc) uShipMoris Zapata Comment: For patients with diabetes plus 1 major ASCVD risk factor, treating to a non-HDL-C goal of <100 mg/dL (LDL-C of <70 mg/dL) is considered a therapeutic option. 05/09/2024 8:27 AM CUSHION BUILDER 05/09/2024 8:27 AM CUSHION BUILDER Narrative [facility] - 05/10/2024 5:10 AM CUSHION BUILDER FASTING:NO FASTING: NO us Katharine Dewitt GROUNDSKEEPING MAINTENANCE LAB BLOOD ORDERABLES Sharda l Result KAREN [facility] [address] [place] [address] * (ABNORMAL) Comprehensive metabolic panel (05/09/2024 8:27 AM CUSHION BUILDER) Glucose 154(H) 65 - 139 mg/dL Level ChefGenna Zapata Comment: Non-fasting reference interval BUN 31(H) 7 - 25 mg/dL [facility] [employer] acosta Zapata Creatinine 1.46(H) 0.70 - 1.22 mg/dL [facility]Ship- acosta Zapata eGFR 48(L) > OR = 60 mL/min/1.7 3m2 [facility]- acosta Zapata BUN/creat ratio 21 6 - 22 (calc) [facility] Sodium 138 135 - 146 mmol/L [facility] Potassium, pl 4.4 3.5 - 5.3 mmol/L [facility] Chloride 108 98 - 110 mmol/L [facility] Benny CO2 23 20 - 32 mmol/L [facility] Calcium 8.8 8.6 - 10.3 mg/dL [facility] Protein, sr 6.3 6.1 - 8.1 g/dL [facility] Albumin 3.9 3.6 - 5.1 g/dL [facility] GLOBULIN 2.4 1.9 - 3.7 g/dL (calc) [facility] Alb/glob ratio 1.6 1.0 - 2.5 (calc) [facility] Bilirubin, total 0.4 0.2 - 1.2 mg/dL [facility] Alk phos 20(L) 35 - 144 U/L [facility] AST 24 10 - 35 U/L [facility] ALT (SGPT) 28 9 - 46 U/L Level Chef acosta Zapata 05/09/2024 8:27 AM CUSHION BUILDER 05/09/2024 8:27 AM CUSHION BUILDER Narrative [facility] - 05/10/2024 5:10 AM CUSHION BUILDER FASTING:NO FASTING: NO Katharine Dewitt NP LAB BLOOD ORDERABLES Sharda l Result KAREN [facility] [address] [place] [address] * (ABNORMAL) POCT hemoglobin A1c (04/18/2024 8:55 AM CUSHION BUILDER) Hemoglobin A1C, POC 6.7 4.0 - 5.6 % Blood 04/18/2024 8:55 AM CUSHION BUILDER Katharine Dewitt NP POINT OF CARE TEST ORDERA BLES Final Result * (ABNORMAL) DIABETES EYE EXAM (01/14/2024 7:56 AM CDT) Historical Provider HEALTH MAINTENANCE Edited Result - Final from Last 3 Months or Most Recently Relevant to [place] [address] MEDICARE COMMERCIAL GENERIC [facility] [address] [place] [address] [place] [address] MEDICARE COMMERCIAL GENERIC Care Teams Merchant Mariner Relationship Specialty Start Date End Date Rm Vee DO [address] [facility] [address] [place] [address] PCP - General Internal Medicine 04/18/24 Baljinder Pena MD [address] [place] [address] Referring Physician Hematology 06/25/22
--- OUTSIDE RECORDS SUMMARY | 2024-08-14 07:23 | XMS_ITS | Clinical Summary ---
Author Organization [facility] Address [address] [place] [address] Care Team Providers Care Time Clock Mechanic Name Role Phone Rm Vee DO Primary Care Provider [phone] Allergies No known active allergies Medications docusate sodium (COLACE) 100 mg capsule Take 100 mg by mouth 2 times daily. Active oxyCODONE-darwin taminophen (PERCOCET) 5-325 mg tablet Take 1 Tablet by mouth every 4 hours as needed for Pain, Moderate. Active amitriptyline (ELAVIL) 10 mg tablet Take 10 mg by mouth daily at bedtime. Active carvedilol (COREG) 6.25 mg tablet Take 6.25 mg by mouth 2 times daily with meals. Active cyanocobalami n 1,000 mcg Tablet Take 1,000 mcg by mouth daily. Active fenofibrate micronized (LOFIBRA) 134 mg Capsule Take 134 mg by mouth daily. Active ferrous sulfate 325 mg (65 mg iron) tablet Take 325 mg by mouth daily. Active finasteride (PROSCAR) 5 mg tablet Take 5 mg by mouth daily. Active glimepiride (AMARYL) 4 mg tablet Take 4 mg by mouth daily with breakfast. Active hydroCHLOROth iazide (MICROZIDE) 12.5 mg capsule Take 12.5 mg by mouth daily. Active insulin detemir U-100 (LEVEMIR) 100 unit/mL pen syringe Inject by subcutaneous injection. Active lisinopril (PRINIVIL) 40 mg tablet Take 40 mg by mouth daily. Active metFORMIN (GLUCOPHAGE) 850 mg tablet Take 850 mg by mouth 3 times daily. Active simvastatin (ZOCOR) 40 mg tablet Take 40 mg by mouth daily with supper. Active tamsulosin (FLOMAX) 0.4 mg capsule Take 0.4 mg by mouth daily. Active terazosin (HYTRIN) 10 mg capsule Take 10 mg by mouth daily at bedtime. Active ondansetron (ZOFRAN ODT) 4 mg Tablet, Rapid DissolveIndic ations:Cecal cancer (CMS/HCC) Take 1 Tablet (4 mg) by mouth every 8 hours as needed for Nausea/Emesis Dissolve tablet on top of tongue, then swallow with saliva.. 30 Tablet 3 10/29/19 19 Active felodipine (PLENDIL) 10 mg Extended Release 24 hour tablet TAKE 1 TABLET BY MOUTH ONCE DAILY 3 12/03/19 19 Active lancets (One Touch Delica) 33 gauge USE ONE LANCET TO CHECK GLUCOSE TWICE DAILY 06/06/19 19 Active ONETOUCH ULTRA BLUE TEST STRIP Strip USE 1 STRIP TO CHECK GLUCOSE TWICE DAILY DIRECTED 1 02/21/20 19 Active Insulin [place], Disposable, 32 gauge x 5/16 Needle Use to inject insulin once a day 04/14/20 17 Active ascorbic acid (VITAMIN C) 500 mg Tablet, Chewable Take 500 mg by mouth. Active gabapentin (NEURONTIN) 300 mg capsule Take 1 Capsule (300 mg) by mouth 3 times daily. 90 Capsule 1 12/12/19 20 Active clotrimazole- betamethasone (LOTRISONE) 1-0.05 % Cream APPLY TOPICALLY TO THE AFFECTED AREA(S) TWICE A DAY 03/25/20 20 Active lidocaine-nicolas locaine (EMLA) 2.5-2.5 % CreamIndicati ons:Malignant neoplasm of descending colon (CMS/HCC) Apply 30 Grams to affected area see administration instructions. Please apply to port site 30 min before chemo 30 Gram 1 09/12/19 21 Active loperamide (IMODIUM) 2 mg capsuleIndica tions:Maligna nt neoplasm of descending colon (CMS/HCC) TAKE 1 CAPSULE BY MOUTH EVERY 3 HOURS NEEDED FOR DIARRHEA OR LOOSE STOOLS 30 Capsule 03/05/20 21 Active hydrALAZINE (APRESOLINE) 50 mg tablet Take 50 mg by mouth 3 times daily. 11/30/19 22 Active apixaban (ELIQUIS) 5 mg tablet Take 1 Tablet (5 mg) by mouth 2 times daily. 60 Tablet 4 05/22/19 25 Active hydrOXYzine HCL (ATARAX) 25 mg tablet TAKE 1 TABLET BY MOUTH THREE TIMES DAILY NEEDED FOR ITCHING 90 Tablet 03/31/20 25 Active hydrOXYzine HCL (ATARAX) 25 mg tablet Take 1 Tablet (25 mg) by mouth 3 times daily as needed for Itching. 90 Tablet 07/11/19 25 2024 Discontinued Active Problems Problem Noted Date Diagnosed Date Drug-induced polyneuropathy 06/09/2019 Type 2 diabetes mellitus with hyperglycemia 05/12 Acute deep vein thrombosis ( DVT) of proximal vein of right lower extremity 06/09/2019 Malignant neoplasm of descending colon 9 Encounters Date Type Department Care Team Description 08/07/2024 Refill [facility] [address] [place] [address] Baljinder Pena MD 07/10/2024 Telephone [facility] [address] [place] [address] Baljinder Pena MD Itching 06/06/2024 Telephone [facility] [address] [place] [address] Baljinder Pena MD Rash 05/22/2024 9:45 AM PUBLIC BATH ATTENDANT Office Visit [facility] [address] [place] [address] Baljinder Pena MD Acute deep vein thrombosis (DVT) of proximal vein of left lower extremity (CMS/HCC) (Primary Dx); Malignant neoplasm of descending colon (CMS/HCC) 05/18/2024 Orders Only [facility] [address] [place] [address] Baljinder Pena MD from Last 3 Months Family History Medical History Relation Name Comments Cancer Brother Diabetes Brother Heart Disease Father Cancer Mother Relation Name Status Comments Brother Father Mother Social History Tobacco Use Types Packs/Day Years Used Date Smoking Tobacco: Former Cigarettes 2 30 0 10/24/1965 - 10/25/1995 Smokeless Tobacco: Never Tobacco Cessation:Counseling Given: Not Answered Alcohol Use Standard Drinks/Week Comments Yes 0 (1 standard drink = 0.6 oz pur e alcohol) Sex and Gender Information Value Date Recorded Sex Assigned at Not on file Legal Sex Male 9:41 AM CDT Gender Identity Not on file Sexual Orientation Not on file Last Filed Vital Signs Vital Sign Reading Time Taken Comments Blood Pressure 150/60 05/22/2024 9:34 AM PUBLIC BATH ATTENDANT Pulse 83 05/22/2024 9:30 AM PUBLIC BATH ATTENDANT Temperature 36 C (96.8 F) 05/22/2024 9:30 AM PUBLIC BATH ATTENDANT Respiratory Rate 15 05/22/2024 9:30 AM PUBLIC BATH ATTENDANT Oxygen Saturation 98% 05/22/2024 9:30 AM PUBLIC BATH ATTENDANT Inhaled Oxygen Concentration - - Weight 121.5 kg (267 lb 12.8 oz) 05/22/2024 9:30 AM PUBLIC BATH ATTENDANT Height 179.1 cm (5' 10.5 ) 12/04/2021 9:36 AM CD T Body Mass Index 37.88 12/04/2021 9:36 AM CDT Plan of Treatment Upcoming Encounters Date Type Department Care Team (Late st Contact Info) Description 08/21/2024 11:15 AM CDT Office Visit [facility] [place] [address] [address] [place] [address] Baljinder Pena MD [address] [facility] [address] [place] [address] Health Maintenance Due Date Last Done Comments DIABETES MICROALBUMIN ANNUAL SCREEN 1960 LDL CHOLESTEROL ANNUAL 1960 DTAP/TDAP/TD VACCINES (1 - Tdap) 1961 PNEUMOCOCCAL VACCINE 50+ YEA RS (1 of 2 - PCV) 1961 Traditional Medicare (ACO) A nnual Wellness Visit 1961 ZOSTER VACCINE (1 of 2) 1992 RSV VACCINE (60+ or ) (1 - 1-dose 75+ series) 2017 INFLUENZA VACCINE (#1) 2023 DIABETES HBA1C Q 6 MONTHS 10/17/20242023, 10/28/2023, 06/10/2023, Additional history exists DIABETES ANNUAL FOOT EXAM 10/27/2024 10/28/2023 DIABETES ANNUAL RETINAL EXAM 01/13/202510/2023, 12/17/2022, 12/11/2020, Additional history exists Procedures Procedure Name Priority Date/Time Associated Diagnosis Comments US VENOUS DOPPLER LEG LEFT Routine 05/16/2024 12:54 PM PUBLIC BATH ATTENDANT from Last 3 Months Results * US VENOUS DOPPLER LEG LEFT (05/16/2024 12:54 PM PUBLIC BATH ATTENDANT) Anatomical Region Laterality Modality Lower Extremity Ultrasound us Baljinder Pena MD US ORDERABLES Final Result from Last 3 Months Insurance MEDICARE PART A AND [facility] MEDICARE SUPPLEMENT MEDICARE PART A AND [facility] MEDICARE SUPPLEMENT Care Teams Time Clock Mechanic Relationship Specialty Start Date End Date Rm Vee DO [address] [facility] [address] [facility] [address] [place] [address] PCP - General Internal Medicine 05/22/24
== END 2024-08-14 07:19 | disposition home or self-care (01) ==
PROVIDERS: PCP Internal Medicine; Visit Provider Internal Medicine Hematology & Oncology
DX: I82.432 Acute embolism and thrombosis of left popliteal vein (principal)
CPT/HCPCS: 93971

== ENCOUNTER 2024-08-14 08:30 | Outpatient (CLI) | payer MEDICARE, SELFPAY ==
--- OUTSIDE RECORDS SUMMARY | 2024-08-14 08:52 | XMS_ITS | Referral Summary ---
Author Organization [facility] Address [address] [place] [address] Care Team Providers Care Director Of Operations For Therapy Name Role Phone Baljinder Pena MD Unavailable [phone] Rm Vee DO Primary Care Provider [phone] Allergies No known active allergies Medications finasteride [...] a associated with type 2 diabetes mellitus ([facility]) Take 1 capsule (134 mg total) by mouth daily 90 capsule 3 4 Active lisinopriL (PRINIVIL,ZESTRI L) 40 mg tabletIndication s:Hypertension associated with diabetes (HCC) Take 1 tablet (40 mg total) by mouth daily 90 tablet 3 4 Active lancets (OneTouch Delica Lancets) 33 gauge miscIndications: Type 2 diabetes mellitus with hyperglycemia, with long-term current use of insulin ([facility]) Check blood sugar twice a day. 200 each 3 4 Active insulin glargine (LANTUS) 100 unit/mL (3 mL) pen for injectionIndicat ions:Type 2 diabetes mellitus with hyperglycemia, with long-term current use of insulin ([facility]) Inject 42-44 Units under the skin nightly [...] hyperglycemia, with long-term current use of insulin ([facility]) Take 1 tablet (4 mg total) by mouth daily before breakfast 90 tablet 3 4 Active blood glucose diagnostic (Radiant CommunicationsTouch Ultra Test) stripIndications :Type 2 diabetes mellitus with hyperglycemia, with long-term current use of insulin ([facility]),Essential hypertension One Touch Ultra Blue Dx: E11.65 insulin dependent. Check blood sugar 2 times daily. 600 each 1 4 Active pen needle, diabetic (TRUEplus Pen Needle) 32 gauge x 5/32 needleIndication s:Type 2 diabetes mellitus with hyperglycemia, with long-term current use of insulin ([facility]) Use 1 pen needle twice daily 100 each 11 5 Active Active Problems Problem Noted Date Diagnosed Date Morbid (severe) obesity due to excess calories 0 06/10/2023 Class 2 severe obesity due t o excess calories with serious comorbidity and body mass index (BMI) of 39.0 to 39.9 in adult 06/10/2023 Assessment & Plan (06/10/2023 9:30 AM [employer]): Discussed healthy diet and importance of regular physical activity (20- 30min/day, 150min/wk). Hyperlipidemia associated with type [address] 10/14/2017 Assessment & Plan (04/18/2024 9:35 AM [employer]BA [employer]): Chronic problem. Controlled on current Simvastatin 40mg & fenofibrate 134mg daily. Last lipid panel: 12/15/22 LDL=87, FH=530. Will update labs. Does not mychart. Verified phone #/address to contact re: results. Assessment & Plan (10/28/2023 9:23 AM CDT): Chronic problem. Controlled on current Simvastatin 40mg & fenofibrate 134mg daily. Last lipid panel: 12/15/22 LDL=87, CY=279. Assessment & Plan (06/10/2023 8:51 AM [employer]): Chronic problem. Controlled on current Simvastatin 40mg. Last lipid panel: 12/15/22 LDL=87, YM=743. Assessment & Plan (12/08/2022 11:13 AM CDT): Chronic problem. Controlled on current Simvastatin 40mg. Last lipid panel: 07/17/20 LDL=62, UP=028. Will update labs today. Does not mychart. Verified phone #/address to contact re: results. Assessment & Plan (06/25/2022 12:17 PM [employer]): Chronic, controlled Will get report of lipid profile done recently Continue simvastatin Assessment & Plan (12/23/2021 11:13 AM CDT): Chronic, well controlled Low fat Low cholesterol diet Exercise Continue statin therapy Assessment & Plan (06/17/2021 3:09 PM [employer]): Chronic, well controlled Continue current meds, simvastatin 40 mg daily Assessment & Plan (11/14/2020 10:23 AM CDT): At goal on current medications. Continue statin therapy. Assessment & Plan (07/11/2020 10:32 AM [employer]): Will check lipid panel today Assessment & [...] therapy Assessment & Plan (06/02/2019 1:13 PM [employer]): At goal on current medications. Continue statin therapy. Assessment & Plan (01/19/2019 10:13 AM CDT): At goal on current medications. Continue statin therapy. Assessment & Plan (10/13/2018 9:40 AM CDT): Continue statin therapy Assessment & Plan (04/26/2018 3:35 PM [employer]): At goal on current medications. Assessment & [...] 12/24/2016 Assessment & Plan (07/11/2020 12:12 PM [employer]): Wt continues to increase. Importance of following diet and exercising discussed. Assessment & Plan (03/23/2017 8:55 AM [employer]): Importance of following diet and exercising discussed. Type 2 diabetes mellitus wit h hyperglycemia, with long-term current use of insulin 08/15/2013 Overview (08/13/2016): DMII WO CMP UNCNTRLD Assessment & Plan (04/18/2024 9:35 AM [employer]): Chronic problem. A1c improved from 6.9% 10/28/23 to now 6.7%. Current medications: Glimepiride 4mg daily Metformin 850mg twice daily with meals Levemir 42 units at bedtime Will update labs. Does not mychart. Verified phone #/address to contact re: results. UTD DM eye exam (01/14/24 mild NPDR wo DME [facility]) Strive for regular exercise (30min most [...] on labs. UTD DM eye exam (12/17/22 [facility] in [place]) Strive for regular exercise (30min most days) [...] infection. Assessment & Plan (06/10/2023 9:33 AM [employer]): Chronic problem. A1c juan from 7.7% to [...] labs. DM eye exam last year at [facility] in [place] & has appt set for 12/17/22. 2nd [...] results. DM eye exam last year at [facility] in [place] & has appt set for 12/17/22. Letter [...] infection. Assessment & Plan (06/25/2022 12:18 PM [employer]): Hba1c was Lab Results Component Value Date [...] current Assessment & Plan (06/17/2021 3:10 PM [employer]): Hba1c was Lab Results Component Value Date [...] reviewed. Assessment & Plan (07/11/2020 12:11 PM [employer]): A1c 6.4. Continue current medication plan. BG [...] day Assessment & Plan (06/02/2019 1:15 PM [employer]): Your A1c is 6.8. No hypoglycemia. Appetite [...] discussed. Assessment & Plan (04/26/2018 3:33 PM [employer]): A1c 7.4. Still acceptable for age. Continue current medication plan. BG goals reviewed. Assessment & Plan (10/14/2017 9:51 AM CDT): Your Hba1c today was: Lab Results Component Value Date HGBA1C 7.1 10/14/2017 meaning a 3 month average sugar of : 150 Your goal hba1c is under 7.0 to prevent retirement diabetes complications ( eye , kidney and [...] units. Assessment & Plan (03/23/2017 8:55 AM [employer]): A1c is 6.9 without reported hypoglycemia. Continue [...] hypertension Assessment & Plan (04/18/2024 9:35 AM [employer]): Chronic problem. Currently taking Carvedilol 6.25mg bid, lisinopril 40mg, hydralazine 50mg tid, & felodipine 10mg daily. Will update labs. Does not mychart. Verified phone #/address to contact re: results. Assessment & Plan (10/28/2023 9:23 AM CDT): Chronic problem. Currently taking Carvedilol 6.25mg bid, lisinopril 40mg, hydralazine 50mg tid, HCTZ 50mg daily & felodipine 10mg daily. Assessment & Plan (06/10/2023 8:51 AM [employer]BA [employer]): Chronic problem. Currently taking Carvedilol 6.25mg bid, [...] elevated. Assessment & Plan (06/25/2022 12:18 PM [employer]): Chronic, well-controlled Continue lisinopril Assessment & Plan (12/23/2021 11:13 AM CDT): Chronic, well controlled Continue current meds Assessment & Plan (06/17/2021 3:10 PM [employer]): Chronic, well controlled Continue current meds Assessment & Plan (07/11/2020 10:32 AM [employer]): Controlled on current medications. Continue plan. Assessment & Plan (11/09/2019 10:08 AM CDT): Goal blood pressure is less than 140/85 Low salt diet recommended Daily aerobic exercise Continue current meds, including RAFAEL-I or ARB, with Lisinopril Assessment & Plan (06/02/2019 1:13 PM [employer]): Controlled on current medications. Continue plan. Assessment & Plan (01/19/2019 10:13 AM CDT): Controlled on current medications. Continue plan. Assessment & Plan (10/13/2018 9:42 AM CDT): Check home BP readings. If continues < 60, record and contact PCP Assessment & Plan (04/26/2018 3:35 PM [employer]): Controlled on current medications. Assessment & Plan (10/14/2017 9:57 AM CDT): Goal blood pressure is less than 140/85 Low salt diet recommended Daily aerobic exercise Continue current meds, including RAFAEL-I or ARB Assessment & Plan (03/23/2017 8:55 AM [employer]): Controlled on current medications. Assessment & Plan [...] 12/08/2022 12/08/2022 Body mass index 40.0-44.9, adult ([facility]) 12/08/2022 12/08/2022 Class 3 severe obesity due [...] NEC/NOS Assessment & Plan (03/23/2017 8:56 AM [employer]): Continue statin and fenofibrate Social History Tobacco [...] on file Legal Sex Male 1:16 AM [employer] Gender Identity Not on file Sexual Orientation Not on file Last Filed Vital Signs Vital Sign Reading Time Taken Comments Blood Pressure 134/68 04/18/2024 8:51 AM MBA INTERNS[employer]IP Pulse 65 04/18/2024 8:51 AM MBA INTERNS[employer]IP Temperature - - Respiratory Rate 16 04/18/2024 8:51 AM MBA INTERNSHIP Oxygen Saturation - - Inhaled Oxygen Concentration - - Weight 123.4 kg (272 lb) 04/18/2024 8:51 AM MBA INTERNSHIP Height 172.7 cm (5' 7.99 ) 04/18/2024 8:51 AM CS T Body Mass Index 41.37 04/18/2024 8:51 AM MBA INTERNS[employer]IP Plan of Treatment Not on file Procedures Procedure Name Priority Date/Time Associated Diagnosis Comments COMPREHENSIVE METABOLIC PANEL Routine 05/09/2024 8:27 AM [employer] LIPID PANEL Routine 05/09/2024 8:27 AM [employer] ALBUMIN CREATININE RATIO, URINE Routine 05/09/2024 8:27 AM [employer]BA INTERNS[employer]IP POCT HEMOGLOBIN A1C Routine 04/18/2024 8 :55 AM [employer]BA INTERNS[employer]IP Type 2 diabetes mellitus with hyperglycemia, with long-term current use of insulin (HCC) DIABETES EYE EXAM Routine 01/14/2024 7:56 AM CDT from Last 3 Months or Most Recently Relevant to Health Maintenance Results * (ABNORMAL) Albumin Creatinine Ratio, Urine (05/09/2024 8:27 AM [employer]) Creatinine, ur 69 20 - 320 mg/dL [...] within a diagnostic category. 05/09/2024 8:27 AM [employer] 05/09/2024 8:27 AM [employer] Narrative [facility] - 05/10/2024 5:10 AM [employer]IP FASTING:NO FASTING: NO Katharine Dewitt SAP PORTAL CONSULTANT LAB URINE ORDERABLES Sharda puga Result [facility] [employer] [address] [facility] [place] [address] * (ABNORMAL) Lipid panel (05/09/2024 8:27 AM MBA INTER[employer]) Pathologist [facility] Cholesterol 180 <200 mg/dL [facility] HDL 34(L) > OR = 40 mg/dL [employer] Triglycerides 221(H) <150 mg/dL [employer] Comment: If a non-fasting specimen was collected, consider repeat triglyceride testing on a fasting specimen if clinically indicated. Eitan et al. J. of Clin. Lipidol. 2015;9:129-169. LDL 113(H) mg/dL (calc) [employer] [facility] Comment: Reference range: <100 Desirable range <100 mg/dL for primary prevention; <70 mg/dL for patients with CHD or diabetic patients with > or = 2 CHD risk factors. LDL-C is now calculated using the Brodie-Polo calculation, which is a validated novel method providing better accuracy than the Friedewald equation in the estimation of LDL-C. Brodie BALDERAS et al. BATSHEVA. 2013;310(19): 1185-8348 (http://education.Wepa.Cavium/faq/VAE334) Chol/HDL ratio 5.3(H) <5.0 (calc) [employer] [facility] Non-HDL, (LDL+VLDL) 146(H) <130 mg/dL (calc) [employer] Comment: For patients with diabetes plus 1 major ASCVD risk factor, treating to a non-HDL-C goal of <100 mg/dL (LDL-C of <70 mg/dL) is considered a therapeutic option. 05/09/2024 8:27 AM [employer] 05/09/2024 8:27 AM [employer] Narrative [facility] - 05/10/2024 5:10 AM [employer] FASTING:NO FASTING: NO us Katharine Dewitt SAP PORTAL CONSULTANT LAB BLOOD ORDERABLES Sharda l Result [facility] [address] [place] [address] * (ABNORMAL) Comprehensive metabolic panel (05/09/2024 8:27 AM [employer]) Glucose 154(H) 65 - 139 mg/dL [employer] Comment: Non-fasting reference interval BUN 31(H) 7 - 25 mg/dL [facility] acosta [facility]ap[facility] Creatinine 1.46(H) 0.70 - 1.22 mg/dL [employer] [facility] eGFR 48(L) > OR = 60 mL/min/1.7 3m2 [facility] BUN/creat ratio 21 6 - 22 (calc) [facility] Sodium 138 135 - 146 mmol/L [facility] Potassium, pl 4.4 3.5 - 5.3 mmol/L [facility] Chloride 108 98 - 110 mmol/L [facility] CO2 23 20 - 32 mmol/L [facility] Calcium 8.8 8.6 - 10.3 mg/dL [facility] Protein, sr 6.3 6.1 - 8.1 g/dL [facility] Albumin 3.9 3.6 - 5.1 g/dL [facility] GLOBULIN 2.4 1.9 - 3.7 g/dL (calc) [facility] Alb/glob ratio 1.6 1.0 - 2.5 (calc) [employer] Bilirubin, total 0.4 0.2 - 1.2 mg/dL [employer] Alk phos 20(L) 35 - 144 U/L [employer] AST 24 10 - 35 U/L [employer] ALT (SGPT) 28 9 - 46 U/L [facility]apata 05/09/2024 8:27 AM [employer] 05/09/2024 8:27 AM [employer] Narrative [facility] - 05/10/2024 5:10 AM [employer] FASTING:NO FASTING: NO Katharine Dewitt NP LAB BLOOD ORDERABLES Sharda l Result [facility] [address] [place] [address] * (ABNORMAL) POCT hemoglobin A1c (04/18/2024 8:55 AM [employer]) Hemoglobin A1C, POC 6.7 4.0 - 5.6 % Blood 04/18/2024 8:55 AM [employer] Katharine Dewitt NP POINT OF CARE TEST ORDERA BLES Final Result * (ABNORMAL) DIABETES EYE EXAM (01/14/2024 7:56 AM CDT) Historical Provider HEALTH MAINTENANCE Edited Result - Final from Last 3 Months or Most Recently Relevant to [place] [address] MEDICARE COMMERCIAL GENERIC [facility] [address] [place] [address] [place] [address] MEDICARE COMMERCIAL GENERIC Care Teams Director Of Operations For Therapy Relationship Specialty Start Date End Date Rm Vee DO [address] [facility] [address] [place] [address] PCP - General Internal Medicine 04/18/24 Baljinder Pena MD [address] [place] [address] Referring Physician Hematology 06/25/22
--- OUTSIDE RECORDS SUMMARY | 2024-08-14 08:52 | XMS_ITS | Clinical Summary ---
Author Organization [facility] Address [address] [place] [address] Care Team Providers Care Nuclear Technician Name Role Phone Rm Vee DO Primary Care Provider [phone] Allergies No known active allergies Medications docusate [...] DAILY DIRECTED 1 02/21/20 19 Active Insulin Egan, Disposable, 32 gauge x 5/16 Needle Use [...] Type Department Care Team Description 08/07/2024 Refill [facility] Oncology and Hematology [facility] [address] [place] [address] Baljinder Pena MD 07/10/2024 Telephone [facility] Oncology and Hematology [facility] [address] [place] [address] Baljinder Pena MD Itching 06/06/2024 Telephone [facility] Oncology and Hematology [facility] [address] [place] [address] Baljinder Pena MD Rash 05/22/2024 9:45 AM CANDY COOKER HELPER Office Visit [facility] Oncology and Hematology [facility] [address] [place] [address] Baljinder Pena MD Acute deep vein thrombosis (DVT) of proximal vein of left lower extremity (CMS/HCC) (Primary Dx); Malignant neoplasm of descending colon (CMS/HCC) 05/18/2024 Orders Only [facility] Oncology and Hematology [facility] [address] [place] [address] Baljinder Pena MD from Last 3 Months [...] Comments Blood Pressure 150/60 05/22/2024 9:34 AM CANDY COOKER HELPER Pulse 83 05/22/2024 9:30 AM CANDY COOKER HELPER Temperature 36 C (96.8 F) 05/22/2024 9:30 AM CANDY COOKER HELPER Respiratory Rate 15 05/22/2024 9:30 AM CANDY COOKER HELPER Oxygen Saturation 98% 05/22/2024 9:30 AM CANDY COOKER HELPER Inhaled Oxygen Concentration - - Weight 121.5 kg (267 lb 12.8 oz) 05/22/2024 9:30 AM CANDY COOKER HELPER Height 179.1 cm (5' 10.5 ) 12/04/2021 9:36 AM CD T Body Mass Index 37.88 12/04/2021 9:36 AM CDT Plan of Treatment Upcoming Encounters Date Type Department Care Team (Late st Contact Info) Description 08/21/2024 11:15 AM CDT Office Visit [facility] Oncology and Hematology - [place] [address] [facility] [address] [place] [address] Baljinder Pena MD [address] [facility] [address] [place] [address] Health Maintenance Due Date Last [...] DOPPLER LEG LEFT Routine 05/16/2024 12:54 PM CANDY COOKER HELPER from Last 3 Months Results * US VENOUS DOPPLER LEG LEFT (05/16/2024 12:54 PM CANDY COOKER HELPER) Anatomical Region Laterality Modality Lower Extremity Ultrasound us Baljinder Pena MD US ORDERABLES Final Result from Last 3 Months Insurance MEDICARE PART A AND B [facility] MEDICARE SUPPLEMENT MEDICARE PART A AND B [facility] MEDICARE SUPPLEMENT Care Teams Nuclear Technician Relationship Specialty Start Date End Date Rm Vee DO [address] [facility] [address] [facility] [address] [place] [address] PCP - General Internal Medicine 05/22/24
--- OUTSIDE RECORDS SUMMARY | 2024-08-14 08:52 | XMS_ITS | Continuity of Care Document ---
Author Organization [facility] Address [address] [facility] [address] [place] [address] Phone Care Team Providers Care Internal Medicine Nurse Practitioner Name Role Phone Durán OD, Yifan Unavailable Unavailable Procedures Procedure Date Office/outpatient Visit, Est Office/outpatient Visit, Est Eye Exam & Treatment Refraction Eye Exam & Treatment Refraction Advance Directives Directive Yes / No Effective Date File Name No Information Encounters Encounter Description Practice Location Reason(s) For Visit Diagnoses Date Provider Providers Copied on Encounter Office/outpat ient Visit, Est [facility], [address], [place], [place], [address], [place] tel:[phone] [facility] No Information 2-201 0 Durán OD Yifan. [address] [facility] [address], [address], [place], [address], [place]. tel:[phone] Referring Provider: Vincent Kline MD, [address] [place] [address] [address], [place], [address]. tel:[phone] Office/outpat ient Visit, Est [facility], [address], [place], [place], [address], [place] tel:[phone] [facility] No Information 2-200 9 Durán OD Yifan. [address] [facility] , [address], [place], [address], [place]. tel:[phone] [facility], [address], [place], [place], [address], [place] tel:[phone] [facility] No Information Nov-0 7-200 8 Durán OD Yifan. [address] [facility] , [address], [place], [address], [place]. tel:[phone] [facility], [address], [place], [place], [address], [place] tel:[phone] [facility] No Information Nov-0 8-200 7 Durán OD Yifan. [address] [facility] , [address], [place], [place], [facility], [place]. tel:[phone] Family History Family Member Type Diagnosis Age At Onset No Information Payers Payer name Insurance type Covered alliance party ID Authoriza tion(s) No Information Social [...]
--- OUTSIDE RECORDS SUMMARY | 2024-08-14 08:52 | XMS_ITS | Clinical Summary ---
Author Organization [facility] Address [address] [place] [address] Care Team Providers Care Food Service Supervisor Name Role Phone Baljinder Pena MD Unavailable [phone] Rm Vee DO Primary Care Provider [...] with type 2 diabetes mellitus ([facility]) Take 1 capsule (134 mg total) by mouth daily 90 capsule 3 4 Active lisinopriL (PRINIVIL,ZESTRI L) 40 mg tabletIndication s:Hypertension associated with diabetes (HCC) Take 1 tablet (40 mg total) by mouth daily 90 tablet 3 4 Active lancets (OneTouch Delica Lancets) 33 gauge miscIndications: Type 2 diabetes mellitus with hyperglycemia, with long-term current use of insulin ([facility]) Check blood sugar twice a day. 200 each 3 4 Active insulin glargine (LANTUS) 100 unit/mL (3 mL) pen for injectionIndicat ions:Type 2 diabetes mellitus with hyperglycemia, with long-term current use of insulin ([facility]) Inject 42-44 Units under the [...] long-term current use of insulin ([facility]) Take 1 tablet (4 mg total) by mouth daily before breakfast 90 tablet 3 4 Active blood glucose diagnostic (BizporaTouch Ultra Test) stripIndications :Type 2 diabetes mellitus with hyperglycemia, with long-term current use of insulin ([facility]),Essential hypertension One Touch Ultra Blue Dx: E11.65 insulin dependent. Check blood sugar 2 times daily. 600 each 1 4 Active pen needle, diabetic (TRUEplus Pen Needle) 32 gauge x 5/32 needleIndication s:Type 2 diabetes mellitus with hyperglycemia, with long-term current use of insulin ([facility]) Use 1 pen needle twice daily 100 each 11 5 Active Active Problems Problem Noted Date Diagnosed Date Morbid (severe) obesity due to excess calories 0 06/10/2023 Class 2 severe obesity due t o excess calories with serious comorbidity and body mass index (BMI) of 39.0 to 39.9 in adult 06/10/2023 Assessment & Plan (06/10/2023 9:30 AM DIELECTRIC TESTER): Discussed healthy diet and importance of regular physical activity (20- 30min/day, 150min/wk). Hyperlipidemia associated with type [address] 10/14/2017 Assessment & Plan (04/18/2024 9:35 AM DIELECTRIC TESTER): Chronic problem. Controlled on current Simvastatin 40mg & fenofibrate 134mg daily. Last lipid panel: 12/15/22 LDL=87, IJ=838. Will update labs. Does not mychart. Verified phone #/address to contact re: results. Assessment & Plan (10/28/2023 9:23 AM CDT): Chronic problem. Controlled on current Simvastatin 40mg & fenofibrate 134mg daily. Last lipid panel: 12/15/22 LDL=87, BS=456. Assessment & Plan (06/10/2023 8:51 AM DIELECTRIC TESTER): Chronic problem. Controlled on current Simvastatin 40mg. Last lipid panel: 12/15/22 LDL=87, NN=962. Assessment & Plan (12/08/2022 11:13 AM CDT): Chronic problem. Controlled on current Simvastatin 40mg. Last lipid panel: 07/17/20 LDL=62, NX=333. Will update labs today. Does not mychart. Verified phone #/address to contact re: results. Assessment & Plan (06/25/2022 12:17 PM DIELECTRIC TESTER): Chronic, controlled Will get report of lipid profile done recently Continue simvastatin Assessment & Plan (12/23/2021 11:13 AM CDT): Chronic, well controlled Low fat Low cholesterol diet Exercise Continue statin therapy Assessment & Plan (06/17/2021 3:09 PM DIELECTRIC TESTER): Chronic, well controlled Continue current meds, simvastatin 40 mg daily Assessment & Plan (11/14/2020 10:23 AM CDT): At goal on current medications. Continue statin therapy. Assessment & Plan (07/11/2020 10:32 AM DIELECTRIC TESTER): Will check lipid panel today Assessment & [...] therapy Assessment & Plan (06/02/2019 1:13 PM DIELECTRIC TESTER): At goal on current medications. Continue statin therapy. Assessment & Plan (01/19/2019 10:13 AM CDT): At goal on current medications. Continue statin therapy. Assessment & Plan (10/13/2018 9:40 AM CDT): Continue statin therapy Assessment & Plan (04/26/2018 3:35 PM DIELECTRIC TESTER): At goal on current medications. Assessment & [...] 12/24/2016 Assessment & Plan (07/11/2020 12:12 PM DIELECTRIC TESTER): Wt continues to increase. Importance of following diet and exercising discussed. Assessment & Plan (03/23/2017 8:55 AM DIELECTRIC TESTER): Importance of following diet and exercising discussed. Type 2 diabetes mellitus wit h hyperglycemia, with long-term current use of insulin 08/15/2013 Overview (08/13/2016): DMII WO CMP UNCNTRLD Assessment & Plan (04/18/2024 9:35 AM DIELECTRIC TESTER): Chronic problem. A1c improved from 6.9% 10/28/23 to now 6.7%. Current medications: Glimepiride 4mg daily Metformin 850mg twice daily with meals Levemir 42 units at bedtime Will update labs. Does not mychart. Verified phone #/address to contact re: results. UTD DM eye exam (01/14/24 mild NPDR wo D[facility]) Strive for regular exercise (30min [...] labs. UTD DM eye exam (12/17/22 [facility] in [place]) Strive for regular exercise (30min most days) [...] infection. Assessment & Plan (06/10/2023 9:33 AM DIELECTRIC TESTER): Chronic problem. A1c juan from 7.7% to [...] DM eye exam last year at [facility] in [place] & has appt set for 12/17/22. 2nd [...] results. DM eye exam last year at [facility] in [place] & has appt set for 12/17/22. Letter [...] infection. Assessment & Plan (06/25/2022 12:18 PM DIELECTRIC TESTER): Hba1c was Lab Results Component Value Date [...] current Assessment & Plan (06/17/2021 3:10 PM DIELECTRIC TESTER): Hba1c was Lab Results Component Value Date [...] reviewed. Assessment & Plan (07/11/2020 12:11 PM DIELECTRIC TESTER): A1c 6.4. Continue current medication plan. BG [...] day Assessment & Plan (06/02/2019 1:15 PM DIELECTRIC TESTER): Your A1c is 6.8. No hypoglycemia. Appetite [...] discussed. Assessment & Plan (04/26/2018 3:33 PM DIELECTRIC TESTER): A1c 7.4. Still acceptable for age. Continue current medication plan. BG goals reviewed. Assessment & Plan (10/14/2017 9:51 AM CDT): Your Hba1c today was: Lab Results Component Value Date HGBA1C 7.1 10/14/2017 meaning a 3 month average sugar of : 150 Your goal hba1c is under 7.0 to prevent half-way diabetes complications ( eye , kidney and [...] units. Assessment & Plan (03/23/2017 8:55 AM DIELECTRIC TESTER): A1c is 6.9 without reported hypoglycemia. Continue [...] hypertension Assessment & Plan (04/18/2024 9:35 AM DIELECTRIC TESTER): Chronic problem. Currently taking Carvedilol 6.25mg bid, lisinopril 40mg, hydralazine 50mg tid, & felodipine 10mg daily. Will update labs. Does not mychart. Verified phone #/address to contact re: results. Assessment & Plan (10/28/2023 9:23 AM CDT): Chronic problem. Currently taking Carvedilol 6.25mg bid, lisinopril 40mg, hydralazine 50mg tid, HCTZ 50mg daily & felodipine 10mg daily. Assessment & Plan (06/10/2023 8:51 AM DIELECTRIC TESTER): Chronic problem. Currently taking Carvedilol 6.25mg bid, [...] elevated. Assessment & Plan (06/25/2022 12:18 PM DIELECTRIC TESTER): Chronic, well-controlled Continue lisinopril Assessment & Plan (12/23/2021 11:13 AM CDT): Chronic, well controlled Continue current meds Assessment & Plan (06/17/2021 3:10 PM DIELECTRIC TESTER): Chronic, well controlled Continue current meds Assessment & Plan (07/11/2020 10:32 AM DIELECTRIC TESTER): Controlled on current medications. Continue plan. Assessment & Plan (11/09/2019 10:08 AM CDT): Goal blood pressure is less than 140/85 Low salt diet recommended Daily aerobic exercise Continue current meds, including RAFAEL-I or ARB, with Lisinopril Assessment & Plan (06/02/2019 1:13 PM DIELECTRIC TESTER): Controlled on current medications. Continue plan. Assessment & Plan (01/19/2019 10:13 AM CDT): Controlled on current medications. Continue plan. Assessment & Plan (10/13/2018 9:42 AM CDT): Check home BP readings. If continues < 60, record and contact PCP Assessment & Plan (04/26/2018 3:35 PM DIELECTRIC TESTER): Controlled on current medications. Assessment & Plan (10/14/2017 9:57 AM CDT): Goal blood pressure is less than 140/85 Low salt diet recommended Daily aerobic exercise Continue current meds, including RAFAEL-I or ARB Assessment & Plan (03/23/2017 8:55 AM DIELECTRIC TESTER): Controlled on current medications. Assessment & Plan [...] NEC/NOS Assessment & Plan (03/23/2017 8:56 AM DIELECTRIC TESTER): Continue statin and fenofibrate Surgical History Surgery [...] on file Legal Sex Male 1:16 AM DIELECTRIC TESTER Gender Identity Not on file Sexual Orientation Not on file Obstetrics History Last Filed Vital Signs Vital Sign Reading Time Taken Comments Blood Pressure 134/68 04/18/2024 8:51 AM DIELECTRIC TESTER Pulse 65 04/18/2024 8:51 AM DIELECTRIC TESTER Temperature - - Respiratory Rate 16 04/18/2024 8:51 AM DIELECTRIC TESTER Oxygen Saturation - - Inhaled Oxygen Concentration - - Weight 123.4 kg (272 lb) 04/18/2024 8:51 AM DIELECTRIC TESTER Height 172.7 cm (5' 7.99 ) 04/18/2024 8:51 AM CS T Body Mass Index 41.37 04/18/2024 8:51 AM DIELECTRIC TESTER Plan of Treatment Health Maintenance Due Date [...] COMPREHENSIVE METABOLIC PANEL Routine 05/09/2024 8:27 AM DIELECTRIC TESTER LIPID PANEL Routine 05/09/2024 8:27 AM DIELECTRIC TESTER ALBUMIN CREATININE RATIO, URINE Routine 05/09/2024 8:27 AM DIELECTRIC TESTER POCT HEMOGLOBIN A1C Routine 04/18/2024 8 :55 AM DIELECTRIC TESTER Type 2 diabetes mellitus with hyperglycemia, with long-term current use of insulin (HCC) HM DIABETES EYE EXAM Routine 01/14/2024 7:56 AM CDT from Last 3 Months or Most Recently Relevant to Health Maintenance Results * (ABNORMAL) Albumin Creatinine Ratio, Urine (05/09/2024 8:27 AM DIELECTRIC TESTER) Creatinine, ur 69 20 - 320 mg/dL [...] within a diagnostic category. 05/09/2024 8:27 AM DIELECTRIC TESTER 05/09/2024 8:27 AM DIELECTRIC TESTER Narrative [facility] - 05/10/2024 5:10 AM DIELECTRIC TESTER FASTING:NO FASTING: NO us Katharine Dewitt ARCHITECTURAL DESIGNER LAB URINE ORDERABLES Sharda puga Result KAREN Soriano [address] [address] * (ABNORMAL) Lipid panel (05/09/2024 8:27 AM DIELECTRIC TESTER) Pathologist [facility] Cholesterol 180 <200 mg/dL StudyMaxMoris Zapata HDL 34(L) > OR = 40 mg/dL StudyMaxMoris Zapata Triglycerides 221(H) <150 mg/dL StudyMaxMoris Zapata Comment: If a non-fasting specimen was [...] LDL-C. Brodie BALDERAS et al. BATSHEVA. 2013;310(19): 2874-8791 (http://education.E-Blink.Fit&Color/faq/AUX636) Chol/HDL ratio 5.3(H) <5.0 (calc) Karen Zapata Non-HDL, (LDL+VLDL) 146(H) <130 mg/dL (calc) Karen Zapata Comment: For patients with diabetes plus 1 major ASCVD risk factor, treating to a non-HDL-C goal of <100 mg/dL (LDL-C of <70 mg/dL) is considered a therapeutic option. 05/09/2024 8:27 AM DIELECTRIC TESTER 05/09/2024 8:27 AM DIELECTRIC TESTER Narrative [facility] - 05/10/2024 5:10 AM DIELECTRIC TESTER FASTING:NO FASTING: NO Katharine Dewitt ARCHITECTURAL DESIGNER LAB BLOOD ORDERABLES Sharda puga Result KAREN [facility] Center[facility] [address] [place] [address] * (ABNORMAL) Comprehensive metabolic panel (05/09/2024 8:27 AM DIELECTRIC TESTER) Glucose 154(H) 65 - 139 mg/dL Karen [facility]na Zapata Comment: Non-fasting reference interval BUN 31(H) 7 - 25 mg/dL Karen Zapata Creatinine 1.46(H) 0.70 - 1.22 mg/dL Karen [facility] Zapata eGFR 48(L) > OR = 60 mL/min/1.7 3m2 Karen [facility] Zapata BUN/creat ratio 21 6 - 22 (calc) Karen [facility] Zapata Sodium 138 135 - 146 mmol/L Karen [employer] Zapata Potassium, pl 4.4 3.5 - 5.3 [...] ratio 1.6 1.0 - 2.5 (calc) Karen [employer] Zapata Bilirubin, total 0.4 0.2 - 1.2 mg/dL [facility] Zapata Alk phos 20(L) 35 - 144 U/L Karen [employer] shane Benny AST 24 10 - 35 U/L [facility] ChemDAQGenna Zapata ALT (SGPT) 28 9 - 46 U/L StudyMaxGenna shane Benny 05/09/2024 8:27 AM DIELECTRIC TESTER 05/09/2024 8:27 AM DIELECTRIC TESTER Narrative [facility] - 05/10/2024 5:10 AM DIELECTRIC TESTER FASTING:NO FASTING: NO Katharine Dewitt ARCHITECTURAL DESIGNER LAB BLOOD ORDERABLES Sharda l Result [facility] [address] [place] [address] * (ABNORMAL) POCT hemoglobin A1c (04/18/2024 8:55 AM DIELECTRIC TESTER) Hemoglobin A1C, POC 6.7 4.0 - 5.6 % Blood 04/18/2024 8:55 AM DIELECTRIC TESTER Katharine Dewitt ARCHITECTURAL DESIGNER POINT OF CARE TEST ORDERA BLES Final Result * (ABNORMAL) DIABETES EYE EXAM (01/14/2024 7:56 AM CDT) Historical Provider HEALTH MAINTENANCE Edited Result - Final from Last 3 Months or Most Recently Relevant to Health Maintenance Insurance [place] [address] MEDICARE COMMERCIAL GENERIC Care Teams Food Service Supervisor Relationship Specialty Start Date End Date Rm Vee DO [address] [facility] [address] [place] [address] PCP - General Internal Medicine 04/18/24 Baljinder Pena MD [address] [place] [address] Referring Physician Hematology 06/25/22
[2024-08-14 08:54] LABS: Basophils Percent Auto 0.5 % (0.2-1.2); Eosinophils Absolute Auto 0.2 K/mm3 (0-0.3); Eosinophils Percent Auto 3.3 % (0-4.4); Hematocrit 33.4 % (42.0-52.0); Hemoglobin 11.1 g/dL (14.0-18.0); Immature Granulocyte Absolute 0.01 K/mm3 (0.00-0.031); Immature Granulocyte Percent A 0.2 % (0-0.5); Lymphocytes Absolute Auto 1.53 K/mm3 (0.9-3.2); Lymphocytes Percent Auto 26.8 % (18.3-44.2); Mean Corpuscular HGB Conc 33.2 g/dl (32-36); Mean Corpuscular Hemoglobin 30.1 pg (26-34); Mean Corpuscular Volume 90.5 fl (80-100); Mean Platelet Volume 9.9 fl (7.4-10.4); Monocytes Absolute Auto 0.4 K/mm3 (0.1-0.6); Monocytes Percent Auto 7.4 % (2.6-8.5); Neutrophils Absolute Auto 3.5 K/mm3 (1.3-6.7); Neutrophils Percent Auto 61.8 % (45.5-73.1); Platelet Count Result 150 k/mm3 (150-375); Red Blood Count 3.69 M/mm3 (4.6-6.20); Red Cell Distribution Width 13.7 % (11.5-14.5); White Blood Count 5.7 K/mm3 (4.5-10.0)
[2024-08-14 11:37] LABS: Alanine Aminotransferase 19 U/L (6-50); Albumin Level 4.1 g/dL (3.5-5.1); Alkaline Phosphatase 32 U/L (38-126); Anion Gap 7 mmol/L (4-12); Aspartate Amino Transferase 37 U/L (17-59); Bilirubin,Total 0.8 mg/dL (0.2-1.3); Blood Urea Nitrogen 34 mg/dL (9-20); Calcium 9.2 mg/dL (8.4-10.2); Carbon Dioxide 26 mmol/L (22-30); Chloride 105 mmol/L (98-107); Estimated Glomerular Filt Rate 42; Glucose 167 mg/dL (65-110); Potassium 4.6 mmol/L (3.4-5.0); Sodium 138 mmol/L (137-145)
[2024-08-14 12:07] LABS: Carcinoembryonic Antigen 0.5 ng/mL (0.0-3.0)
== END 2024-08-14 08:31 | disposition home or self-care (01) ==
PROVIDERS: PCP Internal Medicine; Visit Provider Internal Medicine Hematology & Oncology
DX: C18.6 Malignant neoplasm of descending colon (principal)
CPT/HCPCS: 36415; 80053; 82378; 85025

== ENCOUNTER 2024-11-06 08:24 | Outpatient (CLI) | payer MEDICARE, SELFPAY ==
[2024-11-06 08:38] LABS: Basophils Percent Auto 0.5 % (0.2-1.2); Eosinophils Absolute Auto 0.2 K/mm3 (0-0.3); Eosinophils Percent Auto 2.7 % (0-4.4); Hematocrit 33.4 % (42.0-52.0); Hemoglobin 11.2 g/dL (14.0-18.0); Immature Granulocyte Absolute 0.02 K/mm3 (0.00-0.031); Immature Granulocyte Percent A 0.3 % (0-0.5); Lymphocytes Percent Auto 25.1 % (18.3-44.2); Mean Corpuscular HGB Conc 33.5 g/dl (32-36); Mean Corpuscular Hemoglobin 30.3 pg (26-34); Mean Corpuscular Volume 90.3 fl (80-100); Mean Platelet Volume 10.3 fl (7.4-10.4); Monocytes Absolute Auto 0.5 K/mm3 (0.1-0.6); Monocytes Percent Auto 7.9 % (2.6-8.5); Neutrophils Absolute Auto 3.8 K/mm3 (1.3-6.7); Neutrophils Percent Auto 63.5 % (45.5-73.1); Platelet Count Result 179 k/mm3 (150-375); Red Cell Distribution Width 14.2 % (11.5-14.5)
[2024-11-06 09:53] LABS: Alanine Aminotransferase 21 U/L (6-50); Albumin Level 4.1 g/dL (3.5-5.1); Alkaline Phosphatase 28 U/L (38-126); Anion Gap 9 mmol/L (4-12); Aspartate Amino Transferase 31 U/L (17-59); Bilirubin,Total 0.6 mg/dL (0.2-1.3); Blood Urea Nitrogen 23 mg/dL (9-20); Calcium 9.2 mg/dL (8.4-10.2); Carbon Dioxide 22 mmol/L (22-30); Chloride 105 mmol/L (98-107); Estimated Glomerular Filt Rate 47; Glucose 167 mg/dL (65-110); Potassium 4.5 mmol/L (3.4-5.0); Sodium 136 mmol/L (137-145)
[2024-11-06 10:23] LABS: Carcinoembryonic Antigen 0.5 ng/mL (0.0-3.0)
== END 2024-11-06 08:25 | disposition home or self-care (01) ==
PROVIDERS: PCP Internal Medicine; Visit Provider Internal Medicine Hematology & Oncology
DX: C18.6 Malignant neoplasm of descending colon (principal)
CPT/HCPCS: 36415; 80053; 82378; 85025

== ENCOUNTER 2024-11-23 08:50 | Outpatient (CLI) | payer MEDICARE, SELFPAY ==
--- NOTE | ~2024-11-23 | CT_ITS ---
CT of the Abdomen and Pelvis: Indication: Colon cancer Technique: 2.5 mm axial scans were obtained through the abdomen and pelvis following intravenous adm inistration of 100 cc of Omnipaque 350. Dose reduction technique was used on this scan by utilizing a utomated exposure control and iterative reconstruction technique. The dose-length product (DLP) was 1 594.17 mGy-cm. COMPARISON: 02/29/2024 Findings: Scans through the lung bases there is a stable 1 cm left lower lobe pulmonary nodule (axia l image 5).. Stable hepatic masses with focal peripheral areas of enhancement, suggestive of hepatic hemangiomas. The spleen, pancreas, gallbladder, adrenals and left kidney are within normal limits. Stable mildly c omplex right renal cyst with thin calcification within it. There are atherosclerotic calcifications o f the aorta. No lymphadenopathy. No bowel obstruction or bowel wall thickening. Status post partial right colectomy. Images through the pelvis were performed. Possible thickening of the urinary bladder versus underdist ention. No pelvic mass seen. No ascites. Impression: No definite evidence for active malignancy or metastatic disease. 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 Stable 1 cm left lower lobe pulmonary nodule. Reviewed, dictated and finalized at location . Impression: No definite evidence for active malignancy or metastatic disease. 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 Stable 1 cm left lower lobe pulmonary nodule.
--- NOTE | ~2024-11-23 | US_ITS ---
Duplex Sonography of the left extremity: Indication: DVT, colon cancer COMPARISON: 08/14/2024 Findings: Sagittal and transverse B-mode images as well as color-flow imaging were performed on the l eft femoral and popliteal veins. B-mode examination was done without and with compression in the tra nsverse plane. There is good visualization of the common femoral, proximal profunda femoral, superfi cial femoral, greater saphenous, and popliteal veins. There is thrombosis in the left profunda femoral vein, femoral vein, and left popliteal vein, more ex tensive and propagating proximally as compared to prior exam. Visualized calf veins are patent. Impression: More extensive DVT in the left lower extremity, now involving the left profunda femoral vein, femoral vein, and left popliteal vein. Reviewed, dictated and finalized at location . Impression: More extensive DVT in the left lower extremity, now involving the left profunda femoral vein, femoral vein, and left popliteal vein.
--- OUTSIDE RECORDS SUMMARY | 2024-11-23 08:57 | XMS_ITS | Continuity of Care Document ---
Author Organization [facility] Address [address] [facility] [address] [place] [address] Phone Care Team Providers Care Environmental Health And Safety Leader Name Role Phone Durán OD, Yifan Unavailable Unavailable Procedures Procedure Date Office/outpatient Visit, Est Office/outpatient Visit, Est Eye Exam & Treatment Refraction Eye Exam & Treatment Refraction Advance Directives Directive Yes / No Effective Date File Name No Information Encounters Encounter Description Practice Location Reason(s) For Visit Diagnoses Date Provider Providers Copied on Encounter Office/outpat ient Visit, Est [facility], [address], [place], [place], [address], [place] tel:[phone] [facility] No Information 2-201 0 Durán OD Yifan. [address] [facility] [address], [place], [address], [place]. tel:[phone] Referring Provider: Vincent Kline MD, [address] [place] [address] [address], [place], [address]. tel:[phone] Office/outpat ient Visit, Est [facility], [address], [place], [place], [address], [place] tel:[phone] [facility] No Information 2-200 9 Durán OD Yifan. [address] [facility] [address] , [address], [place], [address], [place]. tel:[phone] [facility], [address], [place], [place], [address], [place] tel:[phone] [facility] No Information Nov-0 7-200 8 Durán OD Yifan. [address] [facility] , [address], [place], [address], [place]. tel:[phone] [facility], [address], [place], [place], [address], [place] tel:[phone] [facility] No Information Nov-0 8-200 7 Durán OD Yifan. [address] [facility] [address] , [address], [place], [place], [facility], [place]. tel:[phone] Family History Family Member Type Diagnosis Age At Onset No Information Payers Payer name Insurance type Covered democrat ID Authoriza tion(s) No Information Social History [...]
--- OUTSIDE RECORDS SUMMARY | 2024-11-23 08:57 | XMS_ITS | Clinical Summary ---
Author Organization [facility] Address [address] [place] [address] Care Team Providers Care Associate Merchandiser Name Role Phone Rm Vee DO Primary Care Provider [phone] Allergies No known active allergies Medications docusate sodium (COLACE) 100 mg capsule Take 100 mg by mouth 2 times daily. Active oxyCODONE-acet aminophen (PERCOCET) 5-325 mg tablet Take 1 Tablet by mouth every 4 hours as needed for Pain, Moderate. Active amitriptyline (ELAVIL) 10 mg tablet Take 10 mg by mouth daily at bedtime. Active carvedilol (COREG) 6.25 mg tablet Take 6.25 mg by mouth 2 times daily with meals. Active cyanocobalamin 1,000 mcg Tablet Take 1,000 mcg by [...] mg by mouth daily with breakfast. Active hydroCHLOROthi azide (MICROZIDE) 12.5 mg capsule Take 12.5 mg [...] ondansetron (ZOFRAN ODT) 4 mg Tablet, Rapid DissolveIndica tions:Cecal cancer (CMS/HCC) Take 1 Tablet (4 mg) by mouth every 8 hours as needed for Nausea/Emesis Dissolve tablet on top of tongue, then swallow with saliva.. 30 Tablet 3 9 Active felodipine (PLENDIL) 10 mg Extended Release 24 hour tablet TAKE 1 TABLET BY MOUTH ONCE DAILY 3 9 Active lancets (One Touch Delica) 33 gauge USE ONE LANCET TO CHECK GLUCOSE TWICE DAILY 9 Active ONETOUCH ULTRA BLUE TEST STRIP Strip USE 1 STRIP TO CHECK GLUCOSE TWICE DAILY DIRECTED 1 9 Active Insulin [place], Disposable, 32 gauge x 5/16 Needle Use to inject insulin once a day 7 Active ascorbic acid (VITAMIN C) 500 mg Tablet, Chewable Take 500 mg by mouth. Active gabapentin (NEURONTIN) 300 mg capsule Take 1 Capsule (300 mg) by mouth 3 times daily. 90 Capsule 1 0 Active clotrimazole-b etamethasone (LOTRISONE) 1-0.05 % Cream APPLY TOPICALLY TO THE AFFECTED AREA(S) TWICE A DAY 0 Active lidocaine-pril ocaine (EMLA) 2.5-2.5 % CreamIndicatio ns:Malignant neoplasm of descending colon (CMS/HCC) Apply 30 Grams to affected area see administration instructions. Please apply to port site 30 min before chemo 30 Gram 1 1 Active loperamide (IMODIUM) 2 mg capsuleIndicat ions:Malignant neoplasm of descending colon (CMS/HCC) TAKE 1 CAPSULE BY MOUTH EVERY 3 HOURS NEEDED FOR DIARRHEA OR LOOSE STOOLS 30 Capsule 1 Active hydrALAZINE (APRESOLINE) 50 mg tablet Take 50 mg by mouth 3 times daily. 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 Type 2 diabetes mellitus with hyperglycemia 05/12 Acute deep vein thrombosis ( DVT) of proximal vein of right lower extremity 06/09/2019 Malignant neoplasm of descending colon 9 Encounters Date Type Department Care Team Description 11/21/2024 External Device Data STL ABSTRACTION Provider, Abstract 11/08/2024 Orders Only [facility] [address] [place] [address] Baljinder Pena MD 10/08/2024 Refill [facility] [address] [place] [address] Baljinder Pena MD 09/26/2024 External Device Data STL ABSTRACTION Provider, Abstract from Last 3 Months Family History Medical [...] Sign Reading Time Taken Comments Blood Pressure 158/61 08/21/2024 11:13 AM CDT Pulse 70 08/21/2024 11:11 AM CDT Temperature 35.9 C (96.7 F) 08/21/2024 11:11 AM CDT Respiratory Rate 15 08/21/2024 11:1 1 AM CDT Oxygen Saturation 97% 08/21/2024 11: 11 AM CDT Inhaled Oxygen Concentration - - Weight 123.7 kg (272 lb 9.6 oz) 025 11:11 AM CDT Height 179.1 cm (5' 10.5) 12/04/2021 9:36 AM CD T Body Mass Index 38.56 12/04/2021 9:36 AM CDT Plan of Treatment Upcoming Encounters Date Type Department Care Team (Late st Contact Info) Description 11/27/2024 10:00 AM CDT Office Visit [facility] - [place] [address] [place] [address] Baljinder Pena MD [address] [place] [address] Health Maintenance Due Date Last Done Comments DIABETES MICROALBUMIN ANNUAL SCREEN 1960 LDL CHOLESTEROL ANNUAL 1960 DTAP/TDAP/TD VACCINES (1 - Tdap) 1961 PNEUMOCOCCAL VACCINE 50+ YEA RS (1 of 2 - PCV) 1961 ZOSTER VACCINE (1 of 2) 1992 RSV VACCINE (60+ or ) (1 - 1-dose 75+ series) 2017 DIABETES HBA1C Q 6 MONTHS 10/17/20242023, 10/28/2023, 06/10/2023, Additional history exists DIABETES ANNUAL FOOT EXAM 10/27/2024 10/28/2023 INFLUENZA VACCINE (#1) 2024 DIABETES ANNUAL RETINAL EXAM 01/13/202510/2023, 12/17/2022, 12/11/2020, Additional history exists Procedures Procedure Name Priority Date/Time Associated Diagnosis Comments COMPREHENSIVE METABOLIC PANEL Routine 11/06/2024 7:52 AM CDT CBC WITH DIFFERENTIAL Routine 11/06/2024 7:52 AM CDT from Last 3 Months Results * COMPREHENSIVE METABOLIC PANEL (11/06/2024 7:52 AM CDT) Blood Baljinder Pena MD CHEMISTRY ORDERABLES Final Resu lt * CBC WITH DIFFERENTIAL (11/06/2024 7:52 AM CDT) Blood us Baljidner Pena MD HEMATOLOGY ORDERABLES Final Res ult from Last 3 Months Insurance MEDICARE PART A AND B [facility] MEDICARE SUPPLEMENT MEDICARE PART A AND B [facility] MEDICARE SUPPLEMENT Care Teams Associate Merchandiser Relationship Specialty Start Date End Date Rm Vee DO [address] [facility] [address] [facility] [address] [place] [address] PCP - General Internal Medicine 05/22/24
--- OUTSIDE RECORDS SUMMARY | 2024-11-23 08:57 | XMS_ITS | Clinical Summary ---
[place] [facility] [place] [facility] [place] [facility] Address [address] [place] [address] Care Team Providers Care Sanitary Inspector Name Role Phone Baljinder Pena MD Unavailable [phone] Rm Vee DO Primary Care Provider [...] ONCE DAILY IN THE MORNING 1 Active hydrALAZINE (APRESOLINE) 50 mg tablet Take 1 [...] mouth 2 (two) times a day Active lancets (OneTouch Delica Lancets) 33 gauge miscIndications: Type 2 diabetes mellitus with hyperglycemia, with long-term current use of insulin ([facility]) Check blood sugar twice a day. 200 each 3 4 Active insulin glargine (LANTUS) 100 unit/mL (3 mL) pen for injectionIndicat ions:Type 2 diabetes mellitus with hyperglycemia, with long-term current use of insulin ([facility]) Inject 42-44 Units under the skin nightly 45 mL 3 4 03/09/20 25 Active blood glucose diagnostic (OneTouch Ultra Test) stripIndications :Type 2 diabetes mellitus with hyperglycemia, with long-term current use of insulin ([facility]),Essential hypertension One Touch Ultra Blue Dx: E11.65 insulin dependent. Check blood sugar 2 times daily. 600 each 1 4 Active pen needle, diabetic (TRUEplus Pen Needle) 32 gauge x 5/32 needleIndication s:Type 2 diabetes mellitus with hyperglycemia, with long-term current use of insulin ([facility]) Use 1 pen needle twice daily 100 each 11 5 Active hydrOXYzine (ATARAX) 25 mg tablet TAKE 1 TABLET BY MOUTH THREE TIMES DAILY NEEDED FOR ITCHING 5 Active mometasone (ELOCON) 0.1 % cream APPLY 1 APPLICATION OF CREAM TOPICALLY ONCE DAILY; USE FOR 3-4 WEEKS OR UNTIL CLEARED 5 Active triamcinolone (KENALOG) 0.1 % cream APPLY TWICE DAILY NEEDED FOR UP TO 2 WEEKS THEN TAKE 1 WEEK OFF 5 Active metFORMIN (GLUCOPHAGE) 850 mg tabletIndication s:Type 2 diabetes mellitus with hyperglycemia, with long-term current use of insulin (HCC) Take 1 tablet (850 mg total) by mouth 2 (two) times a day with meals 180 tablet 3 5 10/18/19 26 Active glimepiride (AMARYL) 4 mg tabletIndication s:Type 2 diabetes mellitus with hyperglycemia, with long-term current use of insulin (HCC) Take 1 tablet (4 mg total) by mouth daily before breakfast 90 tablet 3 5 10/18/19 26 Active fenofibrate micronized (LOFIBRA) 134 mg capsuleIndicatio ns:Hyperlipidemi a associated with type 2 diabetes mellitus (HCC) Take 1 capsule (134 mg total) by mouth daily 90 capsule 3 5 Active simvastatin (ZOCOR) 40 mg tabletIndication s:Hyperlipidemia associated with type 2 diabetes mellitus (HCC) Take 1 tablet (40 mg total) by mouth daily 90 tablet 3 5 Active lisinopriL (PRINIVIL,ZESTRI L) 40 mg tabletIndication s:Hypertension associated with diabetes (HCC) Take 1 tablet (40 mg total) by mouth daily 90 tablet 3 5 Active carvediloL (COREG) 6.25 mg tabletIndication s:Hypertension associated with diabetes (HCC) Take 1 tablet (6.25 mg total) by mouth 2 (two) times a day with meals 180 tablet 3 5 Active Active Problems Problem Noted Date Diagnosed Date Morbid (severe) obesity due to excess calories 0 06/10/2023 Class 2 severe obesity due t o excess calories with serious comorbidity and body mass index (BMI) of 39.0 to 39.9 in adult 06/10/2023 Assessment & Plan (06/10/2023 9:30 AM HOSTLER HELPER): Discussed healthy diet and importance of regular physical activity (20- 30min/day, 150min/wk). Hyperlipidemia associated with type [address] 10/14/2017 Assessment & Plan (10/17/2024 8:53 AM CDT): Chronic problem. Controlled on current Simvastatin 40mg & fenofibrate 134mg daily. Last lipid panel: 12/31/24 IFC=400, QE=247. Assessment & Plan (04/18/2024 9:35 AM HOSTLER HELPER): Chronic problem. Controlled on current Simvastatin 40mg & fenofibrate 134mg daily. Last lipid panel: 12/15/22 LDL=87, ZH=516. Will update labs. Does not mychart. Verified phone #/address to contact re: results. Assessment & Plan (10/28/2023 9:23 AM CDT): Chronic problem. Controlled on current Simvastatin 40mg & fenofibrate 134mg daily. Last lipid panel: 12/15/22 LDL=87, YK=850. Assessment & Plan (06/10/2023 8:51 AM HOSTLER HELPER): Chronic problem. Controlled on current Simvastatin 40mg. Last lipid panel: 12/15/22 LDL=87, TM=246. Assessment & Plan (12/08/2022 11:13 AM CDT): Chronic problem. Controlled on current Simvastatin 40mg. Last lipid panel: 07/17/20 LDL=62, LS=590. Will update labs today. Does not mychart. Verified phone #/address to contact re: results. Assessment & Plan (06/25/2022 12:17 PM HOSTLER HELPER): Chronic, controlled Will get report of lipid profile done recently Continue simvastatin Assessment & Plan (12/23/2021 11:13 AM CDT): Chronic, well controlled Low fat Low cholesterol diet Exercise Continue statin therapy Assessment & Plan (06/17/2021 3:09 PM HOSTLER HELPER): Chronic, well controlled Continue current meds, simvastatin 40 mg daily Assessment & Plan (11/14/2020 10:23 AM CDT): At goal on current medications. Continue statin therapy. Assessment & Plan (07/11/2020 10:32 AM HOSTLER HELPER): Will check lipid panel today Assessment & [...] therapy Assessment & Plan (06/02/2019 1:13 PM HOSTLER HELPER): At goal on current medications. Continue statin therapy. Assessment & Plan (01/19/2019 10:13 AM CDT): At goal on current medications. Continue statin therapy. Assessment & Plan (10/13/2018 9:40 AM CDT): Continue statin therapy Assessment & Plan (04/26/2018 3:35 PM HOSTLER HELPER): At goal on current medications. Assessment & [...] 12/24/2016 Assessment & Plan (07/11/2020 12:12 PM HOSTLER HELPER): Wt continues to increase. Importance of following diet and exercising discussed. Assessment & Plan (03/23/2017 8:55 AM HOSTLER HELPER): Importance of following diet and exercising discussed. Type 2 diabetes mellitus wit h hyperglycemia, with long-term current use of insulin 08/15/2013 Overview (08/13/2016): DMII WO CMP UNCNTRLD Assessment & Plan (10/17/2024 9:17 AM CDT): Chronic problem. A1c increased from 6.7% 04/18/24 to now 6.9%. Current medications: Glimepiride 4mg daily Metformin 850mg twice daily with meals Levemir 42 units at bedtime UTD on labs. UTD DM eye exam (01/14/24 mild NPDR wo [facility]) Strive for regular exercise (30min most days) and diet (get at least 4-5 servings of fruit and veggies daily, avoid processed foods, increase lean protein intake and decrease carb portions as well as fruit juices, regular soda & desserts). Watch carbs and simple sugars. Check the blood sugar 1-2x/day. Check the feet daily for skin breakdown and infection. Assessment & Plan (04/18/2024 9:35 AM HOSTLER HELPER): Chronic problem. A1c improved from 6.9% 10/28/23 to now 6.7%. Current medications: Glimepiride 4mg daily Metformin 850mg twice daily with meals Levemir 42 units at bedtime Will update labs. Does not mychart. Verified phone #/address to contact re: results. UTD DM eye exam (01/14/24 mild NPDR wo [facility]) Strive for regular exercise (30min most days) [...] on labs. UTD DM eye exam (12/17/22 [facility]) Strive for regular exercise (30min most [...] infection. Assessment & Plan (06/10/2023 9:33 AM HOSTLER HELPER): Chronic problem. A1c juan from 7.7% to [...] labs. DM eye exam last year at [facility] & has appt set for 12/17/22. 2nd [...] results. DM eye exam last year at [facility] & has appt set for 12/17/22. Letter [...] infection. Assessment & Plan (06/25/2022 12:18 PM HOSTLER HELPER): Hba1c was Lab Results Component Value Date [...] current Assessment & Plan (06/17/2021 3:10 PM HOSTLER HELPER): Hba1c was Lab Results Component Value Date [...] reviewed. Assessment & Plan (07/11/2020 12:11 PM HOSTLER HELPER): A1c 6.4. Continue current medication plan. BG [...] day Assessment & Plan (06/02/2019 1:15 PM HOSTLER HELPER): Your A1c is 6.8. No hypoglycemia. Appetite [...] discussed. Assessment & Plan (04/26/2018 3:33 PM HOSTLER HELPER): A1c 7.4. Still acceptable for age. Continue current medication plan. BG goals reviewed. 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 Assessment & Plan (03/23/2017 8:55 AM HOSTLER HELPER): A1c is 6.9 without reported hypoglycemia. Continue [...] (08/13/2016): Unspecified essential hypertension Assessment & Plan (10/17/2024 8:53 AM CDT): Chronic problem. Currently taking Carvedilol 6.25mg bid, lisinopril 40mg, hydralazine 50mg tid, & felodipine 10mg daily. Assessment & Plan (04/18/2024 9:35 AM HOSTLER HELPER): Chronic problem. Currently taking Carvedilol 6.25mg bid, lisinopril 40mg, hydralazine 50mg tid, & felodipine 10mg daily. Will update labs. Does not mychart. Verified phone #/address to contact re: results. Assessment & Plan (10/28/2023 9:23 AM CDT): Chronic problem. Currently taking Carvedilol 6.25mg bid, lisinopril 40mg, hydralazine 50mg tid, HCTZ 50mg daily & felodipine 10mg daily. Assessment & Plan (06/10/2023 8:51 AM HOSTLER HELPER): Chronic problem. Currently taking Carvedilol 6.25mg bid, [...] elevated. Assessment & Plan (06/25/2022 12:18 PM HOSTLER HELPER): Chronic, well-controlled Continue lisinopril Assessment & Plan (12/23/2021 11:13 AM CDT): Chronic, well controlled Continue current meds Assessment & Plan (06/17/2021 3:10 PM HOSTLER HELPER): Chronic, well controlled Continue current meds Assessment & Plan (07/11/2020 10:32 AM HOSTLER HELPER): Controlled on current medications. Continue plan. Assessment & Plan (11/09/2019 10:08 AM CDT): Goal blood pressure is less than 140/85 Low salt diet recommended Daily aerobic exercise Continue current meds, including RAFAEL-I or ARB, with Lisinopril Assessment & Plan (06/02/2019 1:13 PM HOSTLER HELPER): Controlled on current medications. Continue plan. Assessment & Plan (01/19/2019 10:13 AM CDT): Controlled on current medications. Continue plan. Assessment & Plan (10/13/2018 9:42 AM CDT): Check home BP readings. If continues < 60, record and contact PCP Assessment & Plan (04/26/2018 3:35 PM HOSTLER HELPER): Controlled on current medications. Assessment & Plan (10/14/2017 9:57 AM CDT): Goal blood pressure is less than 140/85 Low salt diet recommended Daily aerobic exercise Continue current meds, including RAFAEL-I or ARB Assessment & Plan (03/23/2017 8:55 AM HOSTLER HELPER): Controlled on current medications. Assessment & Plan [...] 12/08/2022 12/08/2022 Body mass index 40.0-44.9, adult ([facility]) 12/08/2022 12/08/2022 Class 3 severe obesity due [...] NEC/NOS Assessment & Plan (03/23/2017 8:56 AM HOSTLER HELPER): Continue statin and fenofibrate Encounters Date Type Department Care Team Description 10/17/2024 9:00 AM CDT Office Visit [facility] Diabetes [facility] Endocrinology [address] [place] [phone] Katharine Dewitt NP Type 2 diabetes mellitus with hyperglycemia, with long-term current use of insulin (HCC) (Primary Dx); Hypertension associated with diabetes (HCC); Hyperlipidemia associated with type 2 diabetes mellitus (HCC) from Last 3 Months Surgical History Surgery Date Site/Laterality Comments KNEE SURGERY Right Medical History Medical History Date Comments Hyperlipidemia Hyperlipidemia Diabetes mellitus (HCC) Diabetes Hypertension Hypertension Hx Other Medical Not Claustropho bic; Comments: [facility] 01/02/2014 - Colon cancer (HCC) History of [...] on file Legal Sex Male 1:16 AM HOSTLER HELPER Gender Identity Not on file Sexual Orientation Not on file Obstetrics History Last Filed Vital Signs Vital Sign Reading Time Taken Comments Blood Pressure 130/64 10/17/2024 8:59 AM CDT Pulse 73 10/17/2024 8:59 AM CDT Temperature - - Respiratory Rate 18 10/17/2024 8:59 AM CDT Oxygen Saturation - - Inhaled Oxygen Concentration - - Weight 122.5 kg (270 lb) 10/17/2024 8:59 AM CDT Height 172.7 cm (5' 7.99) 10/17/2024 8:59 AM CD T Body Mass Index 41.06 10/17/2024 8:59 AM CDT Plan of Treatment Health Maintenance Due Date Last Done Comments Fall Risk Assessment 1942 DTaP/Tdap/Td Vaccine (1 - Tdap) 1953 Hepatitis B Screening 1960 Well Visit 65+ 10/07/2007 Depression Screening 12/23/2022 12/23/2021, 11/14/2020, 11/09/2019, Additional history exists Foot Exam 10/27/2024 10/28/2023, 0706/2019, 10/13/2018, Additional history exists Influenza Vaccine (#1) 2025 9, 01/24/2018, 01/17/2017, Additional history exists Dilated Eye Exam 01/13/2025 01/14/2024, 02/2023, 12/17/2022, Additional history exists Hemoglobin A1C 04/18/2025 10/17/2024, 04/09, 10/28/2023, Additional history exists Albumin Creatinine Ratio, Urine 05/09/2025 05/09/2024, 12/15/2022, 07/17/2020, Additional history exists Lipid Panel 05/09/2025 05/09/2024, 08/0 12/2022, 07/17/2020, Additional history exists eGFR 05/09/2025 05/09/2024, 05/11, 07/17/2020, Additional history exists Pneumococcal vaccine 65+ Completed 01/21/2017, 01/08 Zoster Vaccine Completed 01/02/2018, 11/02/2017 Abdominal Aortic Aneurysm (A AA) Screen Completed 09/23/2020, 03/19/2020, 06/05/2019 Procedures Procedure Name Priority Date/Time Associated Diagnosis Comments POCT GLUCOSE Routine 10/17/2024 9:02 AM CDT Type 2 diabetes mellitus with hyperglycemia, with long-term current use of insulin (HCC) POCT HEMOGLOBIN A1C Routine 10/17/2024 9 :02 AM CDT Type 2 diabetes mellitus with hyperglycemia, with long-term current use of insulin (HCC) COMPREHENSIVE METABOLIC PANEL Routine 05/09/2024 8:27 AM HOSTLER HELPER LIPID PANEL Routine 05/09/2024 8:27 AM HOSTLER HELPER ALBUMIN CREATININE RATIO, URINE Routine 05/09/2024 8:27 AM HOSTLER HELPER DIABETES EYE EXAM Routine 01/14/2024 7:56 AM CDT from Last 3 Months or Most Recently Relevant to Health Maintenance Results * (ABNORMAL) POCT hemoglobin A1c (10/17/2024 9:02 AM CDT) Hemoglobin A1C, POC 6.9(A) 4.0 - 5.6 % Blood 10/17/2024 9:02 AM CDT us Katharine Dewitt NP POINT OF CARE TEST ORDERA BLES Final Result * (ABNORMAL) POCT glucose (10/17/2024 9:02 AM CDT) Glucose Blood, POC 162 Normal Fasting 70 - 100, Random <200 mg/dL Blood 10/17/2024 9:02 AM CDT Katharine Dewitt NP POINT OF CARE TEST ORDERA BLES Final Result * (ABNORMAL) Albumin Creatinine Ratio, Urine (05/09/2024 8:27 AM HOSTLER HELPER) Creatinine, ur 69 20 - 320 mg/dL [...] within a diagnostic category. 05/09/2024 8:27 AM HOSTLER HELPER 05/09/2024 8:27 AM HOSTLER HELPER Narrative [facility] - 05/10/2024 5:10 AM HOSTLER HELPER FASTING:NO FASTING: NO Katharine Dewitt NP LAB URINE ORDERABLES Sharda l Result [facility] [address] [place] [address] * (ABNORMAL) Lipid panel (05/09/2024 8:27 AM HOSTLER HELPER) Cholesterol 180 <200 mg/dL [facility] HDL 34(L) > OR = 40 mg/dL [facility] Triglycerides 221(H) <150 mg/dL [facility] Comment: If a non-fasting specimen was collected, consider repeat triglyceride testing on a fasting specimen if clinically indicated. Eitan et al. J. of Clin. Lipidol. 2015;9:129-169. LDL 113(H) mg/dL (calc) [facility] Comment: Reference range: <100 Desirable range <100 mg/dL for primary prevention; <70 mg/dL for patients with CHD or diabetic patients with > or = 2 CHD risk factors. LDL-C is now calculated using the Echo calculation, which is a validated novel method providing better accuracy than the Friedewald equation in the estimation of LDL-C. Brodie BALDERAS et al. BATSHEVA. 2013;310(86): 2237-1846 (http://education.Tangentix/faq/AEU819) Chol/HDL ratio 5.3(H) <5.0 (calc) [facility] Non-HDL, (LDL+VLDL) 146(H) <130 mg/dL (calc) [facility] Comment: For patients with diabetes plus 1 major ASCVD risk factor, treating to a non-HDL-C goal of <100 mg/dL (LDL-C of <70 mg/dL) is considered a therapeutic option. 05/09/2024 8:27 AM HOSTLER HELPER 05/09/2024 8:27 AM HOSTLER HELPER Narrative [facility] - 05/10/2024 5:10 AM HOSTLER HELPER FASTING:NO FASTING: NO us Katharine Dewitt NP LAB BLOOD ORDERABLES Sharda puga Result [facility] [address] [place] [address] * (ABNORMAL) Comprehensive metabolic panel (05/09/2024 8:27 AM HOSTLER HELPER) Glucose 154(H) 65 - 139 mg/dL [facility] Comment: Non-fasting reference interval BUN 31(H) 7 - 25 mg/dL [facility] Creatinine 1.46(H) 0.70 - 1.22 mg/dL [facility] eGFR 48(L) > OR = 60 mL/min/1.7 3m2 [facility] BUN/creat ratio 21 6 - 22 (calc) [facility] Sodium 138 135 - 146 mmol/L [facility] Potassium, pl 4.4 3.5 - 5.3 mmol/L [facility] Chloride 108 98 - 110 mmol/L [facility] CO2 23 20 - 32 mmol/L [facility] Calcium 8.8 8.6 - 10.3 mg/dL [facility] Protein, sr 6.3 6.1 - 8.1 g/dL [facility] Albumin 3.9 3.6 - 5.1 g/dL [facility] GLOBULIN 2.4 1.9 - 3.7 g/dL (calc) [facility] Alb/glob ratio 1.6 1.0 - 2.5 (calc) [facility] Bilirubin, total 0.4 0.2 - 1.2 mg/dL [facility] Alk phos 20(L) 35 - 144 U/L [facility] AST 24 10 - 35 U/L [facility] ALT (SGPT) 28 9 - 46 U/L [facility] 05/09/2024 8:27 AM HOSTLER HELPER 05/09/2024 8:27 AM HOSTLER HELPER Narrative [facility] - 05/10/2024 5:10 AM HOSTLER HELPER FASTING:NO FASTING: NO Katharine Dewitt NP LAB BLOOD ORDERABLES Sharda puga Result [facility] [address] [place] [address] * (ABNORMAL) DIABETES EYE EXAM (01/14/2024 7:56 AM CDT) us Historical Provider HEALTH MAINTENANCE Edited Result - Final from Last 3 Months or Most Recently Relevant to [place] [address] [place] [address] MEDICARE COMMERCIAL GENERIC [address] [id number] Care Teams Sanitary Inspector Relationship Specialty Start Date End Date Rm Vee DO [address] [facility] [address] [place] [address] PCP - General Internal Medicine 04/18/24 Baljinder Pena MD [address] [phone] Referring Physician Hematology 06/25/22
--- OUTSIDE RECORDS SUMMARY | 2024-11-23 08:57 | XMS_ITS | Referral Summary ---
Author Organization [facility] 8 [facility] Address [address] [place] [address] Care Team Providers Care Psychiatric Specialist Name Role Phone Baljinder Pena MD Unavailable [phone] Rm Vee DO Primary Care Provider [phone] Encounters Date Type Department Care Team Description 10/17/2024 9:00 AM CDT Office Visit [facility] Diabetes and Endocrinology [address] [place] [address] Katharine Dewitt, ISIDRO Type 2 diabetes mellitus with hyperglycemia, with long-term current use of insulin (HCC) (Primary Dx); Hypertension associated with diabetes (HCC); Hyperlipidemia associated with type 2 diabetes mellitus (HCC) from Last 3 Months Allergies No known active allergies Medications finasteride [...] hyperglycemia, with long-term current use of insulin ([facility]) Check blood sugar twice a day. 200 each 3 4 Active insulin glargine (LANTUS) 100 unit/mL (3 mL) pen for injectionIndicat ions:Type 2 diabetes mellitus with hyperglycemia, with long-term current use of insulin ([facility]) Inject 42-44 Units under the skin nightly 45 mL 3 4 03/09/20 25 Active blood glucose diagnostic (OneTouch Ultra Test) stripIndications :Type 2 diabetes mellitus with hyperglycemia, with long-term current use of insulin ([facility]),Essential hypertension One Touch Ultra Blue Dx: E11.65 insulin dependent. Check blood sugar 2 times daily. 600 each 1 4 Active pen needle, diabetic (TRUEplus Pen Needle) 32 gauge x needleIndication s:Type 2 diabetes mellitus with hyperglycemia, with long-term current use of insulin ([facility]) Use 1 pen needle twice daily 100 [...] 06/10/2023 Assessment & Plan (06/10/2023 9:30 AM SILVERING DEPARTMENT SUPERVISOR): Discussed healthy diet and importance of regular physical activity (20- 30min/day, 150min/wk). Hyperlipidemia associated with type [address] 10/14/2017 Assessment & Plan (10/17/2024 8:53 AM CDT): Chronic problem. Controlled on current Simvastatin 40mg & fenofibrate 134mg daily. Last lipid panel: 05/09/24 QWK=774, HQ=455. Assessment & Plan (04/18/2024 9:35 AM SILVERING DEPARTMENT SUPERVISOR): Chronic problem. Controlled on current Simvastatin 40mg & fenofibrate 134mg daily. Last lipid panel: 12/15/22 LDL=87, RG=198. Will update labs. Does not mychart. Verified phone #/address to contact re: results. Assessment & Plan (10/28/2023 9:23 AM CDT): Chronic problem. Controlled on current Simvastatin 40mg & fenofibrate 134mg daily. Last lipid panel: 12/15/22 LDL=87, VH=682. Assessment & Plan (06/10/2023 8:51 AM SILVERING DEPARTMENT SUPERVISOR): Chronic problem. Controlled on current Simvastatin 40mg. Last lipid panel: 12/15/22 LDL=87, EF=089. Assessment & Plan (12/08/2022 11:13 AM CDT): Chronic problem. Controlled on current Simvastatin 40mg. Last lipid panel: 07/17/20 LDL=62, PD=512. Will update labs today. Does not mychart. Verified phone #/address to contact re: results. Assessment & Plan (06/25/2022 12:17 PM SILVERING DEPARTMENT SUPERVISOR): Chronic, controlled Will get report of lipid profile done recently Continue simvastatin Assessment & Plan (12/23/2021 11:13 AM CDT): Chronic, well controlled Low fat Low cholesterol diet Exercise Continue statin therapy Assessment & Plan (06/17/2021 3:09 PM SILVERING DEPARTMENT SUPERVISOR): Chronic, well controlled Continue current meds, simvastatin 40 mg daily Assessment & Plan (11/14/2020 10:23 AM CDT): At goal on current medications. Continue statin therapy. Assessment & Plan (07/11/2020 10:32 AM SILVERING DEPARTMENT SUPERVISOR): Will check lipid panel today Assessment & [...] therapy Assessment & Plan (06/02/2019 1:13 PM SILVERING DEPARTMENT SUPERVISOR): At goal on current medications. Continue statin therapy. Assessment & Plan (01/19/2019 10:13 AM CDT): At goal on current medications. Continue statin therapy. Assessment & Plan (10/13/2018 9:40 AM CDT): Continue statin therapy Assessment & Plan (04/26/2018 3:35 PM SILVERING DEPARTMENT SUPERVISOR): At goal on current medications. Assessment & [...] 12/24/2016 Assessment & Plan (07/11/2020 12:12 PM SILVERING DEPARTMENT SUPERVISOR): Wt continues to increase. Importance of following diet and exercising discussed. Assessment & Plan (03/23/2017 8:55 AM SILVERING DEPARTMENT SUPERVISOR): Importance of following diet and exercising discussed. [...] mild NPDR wo DME [facility] [place]) Strive for regular exercise (30min most days) [...] infection. Assessment & Plan (04/18/2024 9:35 AM SILVERING DEPARTMENT SUPERVISOR): Chronic problem. A1c improved from 6.9% 10/28/23 to now 6.7%. Current medications: Glimepiride 4mg daily Metformin 850mg twice daily with meals Levemir 42 units at bedtime Will update labs. Does not mychart. Verified phone #/address to contact re: results. UTD DM eye exam (01/14/24 mild NPDR wo DME [facility] [place]) Strive for regular exercise (30min most days) [...] labs. UTD DM eye exam (12/17/22 [facility] in [place]) Strive for regular exercise (30min most days) [...] infection. Assessment & Plan (06/10/2023 9:33 AM SILVERING DEPARTMENT SUPERVISOR): Chronic problem. A1c juan from 7.7% to [...] DM eye exam last year at [facility] in [place] & has appt set for 12/17/22. 2nd [...] results. DM eye exam last year at [facility] in [place] & has appt set for 12/17/22. Letter [...] infection. Assessment & Plan (06/25/2022 12:18 PM SILVERING DEPARTMENT SUPERVISOR): Hba1c was Lab Results Component Value Date [...] current Assessment & Plan (06/17/2021 3:10 PM SILVERING DEPARTMENT SUPERVISOR): Hba1c was Lab Results Component Value Date [...] reviewed. Assessment & Plan (07/11/2020 12:11 PM SILVERING DEPARTMENT SUPERVISOR): A1c 6.4. Continue current medication plan. BG [...] day Assessment & Plan (06/02/2019 1:15 PM SILVERING DEPARTMENT SUPERVISOR): Your A1c is 6.8. No hypoglycemia. Appetite [...] discussed. Assessment & Plan (04/26/2018 3:33 PM SILVERING DEPARTMENT SUPERVISOR): A1c 7.4. Still acceptable for age. Continue current medication plan. BG goals reviewed. Assessment & Plan (10/14/2017 9:51 AM CDT): Your Hba1c today was: Lab Results Component Value Date HGBA1C 7.1 10/14/2017 meaning a 3 month average sugar of : 150 Your goal hba1c is under 7.0 to prevent chcf diabetes complications ( eye , kidney and [...] units. Assessment & Plan (03/23/2017 8:55 AM SILVERING DEPARTMENT SUPERVISOR): A1c is 6.9 without reported hypoglycemia. Continue current medication plan. BG goals reviewed. Needs to focus on diet and exercise. Assessment & Plan (12/24/2016 10:01 AM CDT): Hba1c was 6.3 today, indicating adequate DM control 1800 calorie, consistent carb diet recommended 30 min daily aerobic and resistance exercise recommended Foot care discused. Prevention and treatment of hyypoglcyemia discussed. Stop Thompson Hypertension associated with diabetes 01/26/2012 Overview (08/13/2016): Unspecified essential hypertension Assessment & Plan (10/17/2024 8:53 AM CDT): Chronic problem. Currently taking Carvedilol 6.25mg bid, lisinopril 40mg, hydralazine 50mg tid, & felodipine 10mg daily. Assessment & Plan (04/18/2024 9:35 AM SILVERING DEPARTMENT SUPERVISOR): Chronic problem. Currently taking Carvedilol 6.25mg bid, lisinopril 40mg, hydralazine 50mg tid, & felodipine 10mg daily. Will update labs. Does not mychart. Verified phone #/address to contact re: results. Assessment & Plan (10/28/2023 9:23 AM CDT): Chronic problem. Currently taking Carvedilol 6.25mg bid, lisinopril 40mg, hydralazine 50mg tid, HCTZ 50mg daily & felodipine 10mg daily. Assessment & Plan (06/10/2023 8:51 AM SILVERING DEPARTMENT SUPERVISOR): Chronic problem. Currently taking Carvedilol 6.25mg bid, [...] elevated. Assessment & Plan (06/25/2022 12:18 PM SILVERING DEPARTMENT SUPERVISOR): Chronic, well-controlled Continue lisinopril Assessment & Plan (12/23/2021 11:13 AM CDT): Chronic, well controlled Continue current meds Assessment & Plan (06/17/2021 3:10 PM SILVERING DEPARTMENT SUPERVISOR): Chronic, well controlled Continue current meds Assessment & Plan (07/11/2020 10:32 AM SILVERING DEPARTMENT SUPERVISOR): Controlled on current medications. Continue plan. Assessment & Plan (11/09/2019 10:08 AM CDT): Goal blood pressure is less than 140/85 Low salt diet recommended Daily aerobic exercise Continue current meds, including RAFAEL-I or ARB, with Lisinopril Assessment & Plan (06/02/2019 1:13 PM SILVERING DEPARTMENT SUPERVISOR): Controlled on current medications. Continue plan. Assessment & Plan (01/19/2019 10:13 AM CDT): Controlled on current medications. Continue plan. Assessment & Plan (10/13/2018 9:42 AM CDT): Check home BP readings. If continues < 60, record and contact PCP Assessment & Plan (04/26/2018 3:35 PM SILVERING DEPARTMENT SUPERVISOR): Controlled on current medications. Assessment & Plan (10/14/2017 9:57 AM CDT): Goal blood pressure is less than 140/85 Low salt diet recommended Daily aerobic exercise Continue current meds, including RAFAEL-I or ARB Assessment & Plan (03/23/2017 8:55 AM SILVERING DEPARTMENT SUPERVISOR): Controlled on current medications. Assessment & Plan [...] 12/08/2022 12/08/2022 Body mass index 40.0-44.9, adult ([facility]) 12/08/2022 12/08/2022 Class 3 severe obesity due [...] NEC/NOS Assessment & Plan (03/23/2017 8:56 AM SILVERING DEPARTMENT SUPERVISOR): Continue statin and fenofibrate Social History Tobacco [...] on file Legal Sex Male 1:16 AM SILVERING DEPARTMENT SUPERVISOR Gender Identity Not on file Sexual Orientation [...] 10/17/2024 8:59 AM CDT Plan of Treatment Not on file Procedures Procedure Name Priority Date/Time Associated Diagnosis Comments POCT GLUCOSE Routine 10/17/2024 9:02 AM CDT Type 2 diabetes mellitus with hyperglycemia, with long-term current use of insulin (HCC) POCT HEMOGLOBIN A1C Routine 10/17/2024 9 :02 AM CDT Type 2 diabetes mellitus with hyperglycemia, with long-term current use of insulin ([facility]) COMPREHENSIVE METABOLIC PANEL Routine 05/09/2024 8:27 AM SILVERING DEPARTMENT SUPERVISOR LIPID PANEL Routine 05/09/2024 8:27 AM SILVERING DEPARTMENT SUPERVISOR ALBUMIN CREATININE RATIO, URINE Routine 05/09/2024 8:27 AM SILVERING DEPARTMENT SUPERVISOR DIABETES EYE EXAM Routine 01/14/2024 7:56 AM CDT from Last 3 Months or Most Recently Relevant to Health Maintenance Results * (ABNORMAL) POCT hemoglobin A1c (10/17/2024 9:02 AM CDT) Hemoglobin A1C, POC 6.9(A) 4.0 - 5.6 % Blood 10/17/2024 9:02 AM CDT us Katharine Dewitt LIVING COACH POINT OF CARE TEST ORDERA BLES Final Result * (ABNORMAL) POCT glucose (10/17/2024 9:02 AM CDT) [facility] Glucose Blood, POC 162 Normal Fasting 70 - 100, Random <200 mg/dL Blood 10/17/2024 9:02 AM CDT Katharine Dewitt NP POINT OF CARE TEST ORDERA BLES Final Result * (ABNORMAL) Albumin Creatinine Ratio, Urine (05/09/2024 8:27 AM SILVERING DEPARTMENT SUPERVISOR) [facility] Creatinine, ur 69 20 - 320 mg/dL [...] within a diagnostic category. 05/09/2024 8:27 AM SILVERING DEPARTMENT SUPERVISOR 05/09/2024 8:27 AM SILVERING DEPARTMENT SUPERVISOR Narrative [facility] - 05/10/2024 5:10 AM SILVERING DEPARTMENT SUPERVISOR FASTING:NO FASTING: NO Katharine Dewitt NP LAB URINE ORDERABLES Sharda l Result [facility] [address] [place] [address] * (ABNORMAL) Lipid panel (05/09/2024 8:27 AM SILVERING DEPARTMENT SUPERVISOR) [facility] Cholesterol 180 <200 mg/dL [facility] HDL 34(L) > OR = 40 mg/dL [facility] Triglycerides 221(H) <150 mg/dL [facility] Comment: If a non-fasting specimen was [...] equation in the estimation of LDL-C. Brodie SS et al. BATSHEVA. 2013;310(55): 7261-4192 (http://education.Laura Sapiens/faq/FVU382) Chol/HDL ratio 5.3(H) <5.0 (calc) Karen Zapata Non-HDL, (LDL+VLDL) 146(H) <130 mg/dL (calc) Karen Zapata Comment: For patients with diabetes plus 1 major ASCVD risk factor, treating to a non-HDL-C goal of <100 mg/dL (LDL-C of <70 mg/dL) is considered a therapeutic option. 05/09/2024 8:27 AM SILVERING DEPARTMENT SUPERVISOR 05/09/2024 8:27 AM SILVERING DEPARTMENT SUPERVISOR Narrative [facility] - 05/10/2024 5:10 AM SILVERING DEPARTMENT SUPERVISOR FASTING:NO FASTING: NO Katharine Dewitt LIVING COACH LAB BLOOD ORDERABLES Sharda puga Result [facility] [address] [place] [address] * (ABNORMAL) Comprehensive metabolic panel (05/09/2024 8:27 AM SILVERING DEPARTMENT SUPERVISOR) [facility] Glucose 154(H) 65 - 139 mg/dL Karen Zapata Comment: Non-fasting reference interval BUN 31(H) 7 - 25 mg/dL Karen Zapata Creatinine 1.46(H) 0.70 - 1.22 mg/dL Karen Zapata eGFR 48(L) > OR = 60 mL/min/1.7 3m2 Karen Zapata BUN/creat ratio 21 6 - 22 (calc) [facility]apata Sodium 138 135 - 146 mmol/L [facility] Zapata Potassium, pl 4.4 3.5 - 5.3 mmol/L [facility] Chloride 108 98 - 110 mmol/L [facility] CO2 23 20 - 32 mmol/L [facility] Calcium 8.8 8.6 - 10.3 mg/dL [facility] Protein, sr 6.3 6.1 - 8.1 g/dL [facility] Albumin 3.9 3.6 - 5.1 g/dL [facility] GLOBULIN 2.4 1.9 - 3.7 g/dL (calc) [facility] Alb/glob ratio 1.6 1.0 - 2.5 (calc) [facility] Bilirubin, total 0.4 0.2 - 1.2 mg/dL [facility] Alk phos 20(L) 35 - 144 U/L [facility] AST 24 10 - 35 U/L [facility] ALT (SGPT) 28 9 - 46 U/L [facility] 05/09/2024 8:27 AM SILVERING DEPARTMENT SUPERVISOR 05/09/2024 8:27 AM SILVERING DEPARTMENT SUPERVISOR Narrative [facility] - 05/10/2024 5:10 AM SILVERING DEPARTMENT SUPERVISOR FASTING:NO FASTING: NO Katharine Dewitt NP LAB BLOOD ORDERABLES Sharda l Result [facility] [address] [place] [address] * (ABNORMAL) DIABETES EYE EXAM (01/14/2024 7:56 AM CDT) Historical Provider HEALTH MAINTENANCE Edited Result - Final from Last 3 Months or Most Recently Relevant to [place] [address] [place] [address] MEDICARE COMMERCIAL GENERIC Care Teams Psychiatric Specialist Relationship Specialty Start Date End Date Rm Vee DO [address] [address] PCP - General Internal Medicine 04/18/24 Baljinder Pena MD [address] [address] Referring Physician Hematology 06/25/22
== END 2024-11-23 08:51 | disposition home or self-care (01) ==
PROVIDERS: PCP Internal Medicine; Visit Provider Internal Medicine Hematology & Oncology
DX: C18.6 Malignant neoplasm of descending colon (principal); R91.1 Solitary pulmonary nodule; I82.412 Acute embolism and thrombosis of left femoral vein; I82.432 Acute embolism and thrombosis of left popliteal vein
CPT/HCPCS: 74177; 93971; Q9967

== ENCOUNTER 2024-12-27 09:00 | Outpatient (CLI) | payer MEDICARE, SELFPAY ==
--- OUTSIDE RECORDS SUMMARY | 2010-03-21 03:00 | XMS_ITS | Continuity of Care Document ---
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 Name Role Phone Durán OD, Yifan Unavailable Unavailable Procedures Procedure Date Office/outpatient Visit, Est Office/outpatient Visit, Est Eye Exam & Treatment Refraction Eye Exam & Treatment Refraction Advance Directives Directive Yes / No Effective Date File Name No Information Encounters Encounter Description Practice Location Reason(s) For Visit Diagnoses Date Provider Providers Copied on Encounter Office/outpat ient Visit, Est [facility], [address], [place], [place], [id number], [place] tel:[phone] [facility] No Information 2-201 0 Durán OD Yifan. [address] [facility] [address], [address], [place], [address], [place]. tel:[phone] Referring Provider: Vincent Kline MD, [address] [place] [address] [address], [place], [address]. tel:[phone] Office/outpat ient Visit, Est [facility], [address], [place], [place], [id number], [place] tel:[phone] [facility] No Information 2-200 9 Durná OD Yifan. [address] [facility] , [address], [place], [address], [place]. tel:[phone] [facility], [address], [place], [place], [address], [place] tel:[phone] [facility] No Information Nov-0 7-200 8 Durán OD Yifan. [address] [facility] , [address], [place], [address], [place]. tel:[phone] [facility] Eye [facility], [address], [place], [place], [id number], [place] tel:[phone] [facility] No Information Nov-0 8-200 7 Durán OD Yifan. [address] [facility] , [address], [place], [place], [facility], [place]. tel:[phone] Family History Family Member Type Diagnosis Age At Onset No Information Payers Payer name Insurance type Covered republican ID Authoriza tion(s) No Information Social History Type Description Quantity Date Captured Comments Sex Male Smoking Status No Information Chief Complaint And Reason For Visit No Information Reason For Referral Reason For Referral No Information History Of Present Illness Encounter Date Complaint History Of Prese nt Illness No Information Functional Status Date Functional Assessmen t No Information Instructions Date Instruction Additional Infor mation No Information Assessments Type Assessment Date No Information Patient Care Teams Name Effective Dates (start - stop) Status Members No Information
--- NOTE | ~2024-12-27 | US_ITS ---
US venous doppler [facility] - 12/27/2024 10:04 CDT History: 84 years old Male with left lower extremity pain and swelling. Real-time sonographic images of the left lower extremity venous system were obtained. Color Doppler sonography and spectral waveform analysis were performed. No prior studies for comparison. The left sapheno-femoral junctions are patent. The left common femoral, superficial femoral, popliteal and posterior tibial veins are compressible and without evidence of echogenic thrombus. Impression: No evidence of deep venous thrombosis Reviewed, dictated and finalized at location A. Impression: No evidence of deep venous thrombosis
--- OUTSIDE RECORDS SUMMARY | 2024-12-27 09:09 | XMS_ITS | Clinical Summary ---
Author Organization [facility] Address [address] [place] [address] Care Team Providers Care Tie Up Worker Name Role Phone Rm Vee DO Primary Care Provider [phone] Allergies No known active allergies Medications docusate [...] DAILY DIRECTED 1 02/21/20 19 Active Insulin Snyder, Disposable, 32 gauge x 5/16 Needle Use [...] mouth 3 times daily. 11/30/19 22 Active hydrOXYzine HCL (ATARAX) 25 mg tablet TAKE 1 TABLET BY MOUTH THREE TIMES DAILY NEEDED FOR ITCHING 90 Tablet 08/08/19 25 Active apixaban (Eliquis) 5 mg tablet Take 1 tablet by mouth twice daily 60 Tablet 1 10/10/19 25 Active enoxaparin (LOVENOX) 120 mg/0.8 mL injectionIndi cations:Acute deep vein thrombosis (DVT) of proximal vein of left lower extremity (CMS/HCC) INJECT 0.8ML BY SUBCUTANOUS INJECTION EVERY 12 HOURS 48 mL 12/14/19 25 Active enoxaparin (LOVENOX) 120 mg/0.8 mL injectionIndi cations:Acute deep vein thrombosis (DVT) of proximal vein of left lower extremity (CMS/HCC) Inject 0.8 mL (120 mg) by subcutaneous injection every 12 hours. 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 Type 2 diabetes mellitus with hyperglycemia 05/12 Acute deep vein thrombosis ( DVT) of proximal vein of right lower extremity 06/09/2019 Malignant neoplasm of descending colon 9 Encounters Date Type Department Care Team Description 12/13/2024 Refill [facility] [address] [place] [id number] Baljinder Pena MD Acute deep vein thrombosis (DVT) of proximal vein of left lower extremity (CMS/HCC) 12/12/2024 External Device Data STL ABSTRACTION Provider, Abstract 11/27/2024 10:00 AM CDT Office Visit [facility]ematology - [place] [address] [place] [phone] Baljinder Pena MD Acute deep vein thrombosis (DVT) of proximal vein of left lower extremity (CMS/HCC) 11/23/2024 Orders Only [facility]ology - [place] [address] [place] [id number] Baljinder Pena MD 11/23/2024 Refill [facility] - [place] [address] [place] [phone] Baljinder Pena MD Acute deep vein thrombosis (DVT) of proximal vein of left lower extremity (CMS/HCC) (Primary Dx) 11/22/2024 External Device Data STL ABSTRACTION Provider, Abstract 11/21/2024 External Device Data STL ABSTRACTION Provider, Abstract 11/08/2024 Orders Only [facility] - [place] [address] [place] [address] Baljinder Pena MD 10/08/2024 Refill [facility] - [place] [address] [place] [address] Baljinder Pena MD 09/26/2024 External Device Data [...] Sign Reading Time Taken Comments Blood Pressure 140/65 11/27/2024 9:34 AM CDT Pulse 83 11/27/2024 9:34 AM CDT Temperature 36.1 C (96.9 F) 11/27/2024 9:34 AM CDT Respiratory Rate 16 11/27/2024 9:34 AM CDT Oxygen Saturation 98% 11/27/2024 9:34 AM CDT Inhaled Oxygen Concentration - - Weight 121 kg (266 lb 12.8 oz) 11/27/2024 9:34 A M CDT Height 179.1 cm (5' 10.5) 12/04/2021 9:36 AM CD T Body Mass Index 37.74 12/04/2021 9:36 AM CDT Plan of Treatment Upcoming Encounters Date Type Department Care Team (Late st Contact Info) Description 01/03/2025 4:30 PM CDT Telephone Check Up [facility]ology - [place] [address] [place] [address] Baljinder Pena MD [address] [facility] [address] [place] [address] Health Maintenance Due Date Last Done Comments DIABETES MICROALBUMIN ANNUAL SCREEN 1960 LDL CHOLESTEROL ANNUAL 1960 DTAP/TDAP/TD VACCINES (1 - Tdap) 1961 PNEUMOCOCCAL VACCINE 50+ YEA RS (1 of 2 - PCV) 1961 Traditional Medicare (ACO) A nnual Wellness Visit 1961 ZOSTER VACCINE (1 of 2) 1992 RSV VACCINE (60+ or ) (1 - 1-dose 75+ series) 2017 DIABETES ANNUAL FOOT EXAM 10/27/2024 10/28/2023 INFLUENZA VACCINE (#1) 2024 DIABETES ANNUAL RETINAL EXAM 01/13/202510/2023, 12/17/2022, 12/11/2020, Additional history exists DIABETES HBA1C Q 6 MONTHS 04/18/20252024, 04/18/2024, 10/28/2023, Additional history exists Procedures Procedure Name Priority Date/Time Associated Diagnosis Comments CT ABDOMEN PELVIS W CONTRAST Routine 11/23/2024 12:20 PM CDT US VENOUS DOPPLER LEG LEFT Routine 11/23/2024 12:18 PM CDT COMPREHENSIVE METABOLIC PANEL Routine 11/06/2024 7:52 AM CDT CBC WITH DIFFERENTIAL Routine 11/06/2024 7:52 AM CDT from Last 3 Months Results * CT ABDOMEN PELVIS W CONTRAST (11/23/2024 12:20 PM CDT) Anatomical Region Laterality Modality Abdomen Computed Tomogra phy us Baljinder Pena MD CT ORDERABLES Final Result * US VENOUS DOPPLER LEG LEFT (11/23/2024 12:18 PM CDT) Anatomical Region Laterality Modality Lower Extremity Ultrasound us Baljinder Pena MD US ORDERABLES Final Result * COMPREHENSIVE METABOLIC PANEL (11/06/2024 7:52 AM CDT) Blood us Baljinder Pena MD CHEMISTRY ORDERABLES Final Resu lt * CBC WITH DIFFERENTIAL (11/06/2024 7:52 AM CDT) Blood Baljinder Pena MD HEMATOLOGY ORDERABLES Final Res ult from Last 3 Months Insurance MEDICARE PART A AND B [facility] MEDICARE SUPPLEMENT MEDICARE PART A AND B [facility] MEDICARE SUPPLEMENT Care Teams Tie Up Worker Relationship Specialty Start Date End Date Rm Vee DO [address] [facility] [address] [facility] [address] [place] [address] PCP - General Internal Medicine 05/22/24
--- OUTSIDE RECORDS SUMMARY | 2024-12-27 09:09 | XMS_ITS | Clinical Summary ---
Author Organization [facility] Address [address] [place] [address] Care Team Providers Care Sales Representative [employer] Name Role Phone Baljinder Pena MD Unavailable [phone] Rm Vee DO Primary Care Provider [...] hyperglycemia, with long-term current use of insulin ([facility]) Check blood sugar twice a day. 200 each 3 4 Active insulin glargine (LANTUS) 100 unit/mL (3 mL) pen for injectionIndicat ions:Type 2 diabetes mellitus with hyperglycemia, with long-term current use of insulin ([facility]) Inject 42-44 Units under the skin nightly 45 mL 3 4 03/09/20 25 Active blood glucose diagnostic (OneTouch Ultra Test) stripIndications :Type 2 diabetes mellitus with hyperglycemia, with long-term current use of insulin ([facility]),Essential hypertension One Touch Ultra Blue Dx: E11.65 insulin dependent. Check blood sugar 2 times daily. 600 each 1 4 Active pen needle, diabetic (TRUEplus Pen Needle) 32 gauge x 5/32 needleIndication s:Type 2 diabetes mellitus with hyperglycemia, with long-term current use of insulin ([facility]) Use 1 pen needle twice daily 100 [...] 06/10/2023 Assessment & Plan (06/10/2023 9:30 AM TOWER OBSERVER): Discussed healthy diet and importance of regular physical activity (20- 30min/day, 150min/wk). Hyperlipidemia associated with type [address] 10/14/2017 Assessment & Plan (10/17/2024 8:53 AM CDT): Chronic problem. Controlled on current Simvastatin 40mg & fenofibrate 134mg daily. Last lipid panel: 12/31/24 OUD=971, ET=928. Assessment & Plan (04/18/2024 9:35 AM TOWER OBSERVER): Chronic problem. Controlled on current Simvastatin 40mg & fenofibrate 134mg daily. Last lipid panel: 12/15/22 LDL=87, PY=779. Will update labs. Does not mychart. Verified phone #/address to contact re: results. Assessment & Plan (10/28/2023 9:23 AM CDT): Chronic problem. Controlled on current Simvastatin 40mg & fenofibrate 134mg daily. Last lipid panel: 12/15/22 LDL=87, IJ=582. Assessment & Plan (06/10/2023 8:51 AM TOWER OBSERVER): Chronic problem. Controlled on current Simvastatin 40mg. Last lipid panel: 12/15/22 LDL=87, UW=509. Assessment & Plan (12/08/2022 11:13 AM CDT): Chronic problem. Controlled on current Simvastatin 40mg. Last lipid panel: 07/17/20 LDL=62, ZA=903. Will update labs today. Does not mychart. Verified phone #/address to contact re: results. Assessment & Plan (06/25/2022 12:17 PM TOWER OBSERVER): Chronic, controlled Will get report of lipid profile done recently Continue simvastatin Assessment & Plan (12/23/2021 11:13 AM CDT): Chronic, well controlled Low fat Low cholesterol diet Exercise Continue statin therapy Assessment & Plan (06/17/2021 3:09 PM TOWER OBSERVER): Chronic, well controlled Continue current meds, simvastatin 40 mg daily Assessment & Plan (11/14/2020 10:23 AM CDT): At goal on current medications. Continue statin therapy. Assessment & Plan (07/11/2020 10:32 AM TOWER OBSERVER): Will check lipid panel today Assessment & [...] therapy Assessment & Plan (06/02/2019 1:13 PM TOWER OBSERVER): At goal on current medications. Continue statin therapy. Assessment & Plan (01/19/2019 10:13 AM CDT): At goal on current medications. Continue statin therapy. Assessment & Plan (10/13/2018 9:40 AM CDT): Continue statin therapy Assessment & Plan (04/26/2018 3:35 PM TOWER OBSERVER): At goal on current medications. Assessment & [...] 12/24/2016 Assessment & Plan (07/11/2020 12:12 PM TOWER OBSERVER): Wt continues to increase. Importance of following diet and exercising discussed. Assessment & Plan (03/23/2017 8:55 AM TOWER OBSERVER): Importance of following diet and exercising discussed. [...] mild NPDR wo DME [facility]) Strive for regular exercise (30min most days) [...] infection. Assessment & Plan (04/18/2024 9:35 AM TOWER OBSERVER): Chronic problem. A1c improved from 6.9% 10/28/23 to now 6.7%. Current medications: Glimepiride 4mg daily Metformin 850mg twice daily with meals Levemir 42 units at bedtime Will update labs. Does not mychart. Verified phone #/address to contact re: results. UTD DM eye exam (01/14/24 mild NPDR wo DME [facility]) Strive for regular exercise (30min most days) [...] on labs. UTD DM eye exam (12/17/22 [facility]) Strive for regular exercise (30min most [...] infection. Assessment & Plan (06/10/2023 9:33 AM TOWER OBSERVER): Chronic problem. A1c juan from 7.7% to [...] labs. DM eye exam last year at [facility] & has appt set for 12/17/22. [...] results. DM eye exam last year at [facility] & has appt set for 12/17/22. [...] infection. Assessment & Plan (06/25/2022 12:18 PM TOWER OBSERVER): Hba1c was Lab Results Component Value Date [...] current Assessment & Plan (06/17/2021 3:10 PM TOWER OBSERVER): Hba1c was Lab Results Component Value Date [...] reviewed. Assessment & Plan (07/11/2020 12:11 PM TOWER OBSERVER): A1c 6.4. Continue current medication plan. BG [...] day Assessment & Plan (06/02/2019 1:15 PM TOWER OBSERVER): Your A1c is 6.8. No hypoglycemia. Appetite [...] discussed. Assessment & Plan (04/26/2018 3:33 PM TOWER OBSERVER): A1c 7.4. Still acceptable for age. Continue [...] units. Assessment & Plan (03/23/2017 8:55 AM TOWER OBSERVER): A1c is 6.9 without reported hypoglycemia. Continue [...] daily. Assessment & Plan (04/18/2024 9:35 AM TOWER OBSERVER): Chronic problem. Currently taking Carvedilol 6.25mg bid, lisinopril 40mg, hydralazine 50mg tid, & felodipine 10mg daily. Will update labs. Does not mychart. Verified phone #/address to contact re: results. Assessment & Plan (10/28/2023 9:23 AM CDT): Chronic problem. Currently taking Carvedilol 6.25mg bid, lisinopril 40mg, hydralazine 50mg tid, HCTZ 50mg daily & felodipine 10mg daily. Assessment & Plan (06/10/2023 8:51 AM TOWER OBSERVER): Chronic problem. Currently taking Carvedilol 6.25mg bid, [...] elevated. Assessment & Plan (06/25/2022 12:18 PM TOWER OBSERVER): Chronic, well-controlled Continue lisinopril Assessment & Plan (12/23/2021 11:13 AM CDT): Chronic, well controlled Continue current meds Assessment & Plan (06/17/2021 3:10 PM TOWER OBSERVER): Chronic, well controlled Continue current meds Assessment & Plan (07/11/2020 10:32 AM TOWER OBSERVER): Controlled on current medications. Continue plan. Assessment & Plan (11/09/2019 10:08 AM CDT): Goal blood pressure is less than 140/85 Low salt diet recommended Daily aerobic exercise Continue current meds, including RAFAEL-I or ARB, with Lisinopril Assessment & Plan (06/02/2019 1:13 PM TOWER OBSERVER): Controlled on current medications. Continue plan. Assessment & Plan (01/19/2019 10:13 AM CDT): Controlled on current medications. Continue plan. Assessment & Plan (10/13/2018 9:42 AM CDT): Check home BP readings. If continues < 60, record and contact PCP Assessment & Plan (04/26/2018 3:35 PM TOWER OBSERVER): Controlled on current medications. Assessment & Plan (10/14/2017 9:57 AM CDT): Goal blood pressure is less than 140/85 Low salt diet recommended Daily aerobic exercise Continue current meds, including RAFAEL-I or ARB Assessment & Plan (03/23/2017 8:55 AM TOWER OBSERVER): Controlled on current medications. Assessment & Plan [...] 12/08/2022 12/08/2022 Body mass index 40.0-44.9, adult ([facility]) 12/08/2022 12/08/2022 Class 3 severe obesity due [...] NEC/NOS Assessment & Plan (03/23/2017 8:56 AM TOWER OBSERVER): Continue statin and fenofibrate Encounters Date Type Department Care Team Description 10/17/2024 9:00 AM CDT Office Visit [facility] Diabetes and Endocrinology [address] [place] [phone] Katharine Dewitt NP Type 2 diabetes mellitus [...] Hx Other Medical Not Claustropho bic; Comments: [facility] 01/02/2014 - Colon cancer (HCC) History [...] on file Legal Sex Male 1:16 AM TOWER OBSERVER Gender Identity Not on file Sexual Orientation [...] COMPREHENSIVE METABOLIC PANEL Routine 05/09/2024 8:27 AM TOWER OBSERVER LIPID PANEL Routine 05/09/2024 8:27 AM TOWER OBSERVER ALBUMIN CREATININE RATIO, URINE Routine 05/09/2024 8:27 AM TOWER OBSERVER DIABETES EYE EXAM Routine 01/14/2024 7:56 AM [...] Albumin Creatinine Ratio, Urine (05/09/2024 8:27 AM TOWER OBSERVER) Creatinine, ur 69 20 - 320 mg/dL [...] within a diagnostic category. 05/09/2024 8:27 AM TOWER OBSERVER 05/09/2024 8:27 AM TOWER OBSERVER Narrative [facility] - 05/10/2024 5:10 AM TOWER OBSERVER FASTING:NO FASTING: NO Katharine Dewitt NP LAB URINE ORDERABLES Sharda l Result [facility] [address] [place] [address] * (ABNORMAL) Lipid panel (05/09/2024 8:27 AM TOWER OBSERVER) Cholesterol 180 <200 mg/dL [facility] [...] of LDL-C. Brodie BALDERAS et al. BATSHEVA. 2013;310(27): 3905-9425 (http://education.[employer]/faq/TUP239) Chol/HDL ratio 5.3(H) <5.0 (calc) Karen ParkerGenna acosta Zapata Non-HDL, (LDL+VLDL) 146(H) <130 mg/dL (calc) Karen Zapata Comment: For patients with diabetes plus 1 major ASCVD risk factor, treating to a non-HDL-C goal of <100 mg/dL (LDL-C of <70 mg/dL) is considered a therapeutic option. 05/09/2024 8:27 AM TOWER OBSERVER 05/09/2024 8:27 AM TOWER OBSERVER Narrative [facility] - 05/10/2024 5:10 AM TOWER OBSERVER FASTING:NO FASTING: NO us Katharine Dewitt NP LAB BLOOD ORDERABLES Sharda puga Result [facility] [address] [place] [address] * (ABNORMAL) Comprehensive metabolic panel (05/09/2024 8:27 AM TOWER OBSERVER) Glucose 154(H) 65 - 139 mg/dL Karen [...] ALT (SGPT) 28 9 - 46 U/L Haofangtong-Genna Zapata 05/09/2024 8:27 AM TOWER OBSERVER 05/09/2024 8:27 AM TOWER OBSERVER Narrative [facility] - 05/10/2024 5:10 AM TOWER OBSERVER FASTING:NO FASTING: NO Katharine Dewitt NP LAB BLOOD ORDERABLES Sharda puga Result [facility] [address] [place] [address] * (ABNORMAL) DIABETES EYE EXAM (01/14/2024 7:56 AM CDT) us Historical Provider HEALTH MAINTENANCE Edited Result - Final from Last 3 Months or Most Recently Relevant to [place] [address] [place] [address] MEDICARE COMMERCIAL GENERIC [address] [id number] Care Teams Sales Representative [employer] Relationship Specialty Start Date End Date Rm Vee DO [address] [facility] [address] [place] [address] PCP - General Internal Medicine 04/18/24 Baljinder Pena MD [address] [address] Referring Physician Hematology 06/25/22
== END 2024-12-27 09:01 | disposition home or self-care (01) ==
PROVIDERS: PCP Internal Medicine; Visit Provider Internal Medicine Hematology & Oncology
DX: I82.4Y2 Acute embolism and thrombosis of unspecified deep veins of left proximal lower extremity (principal)
CPT/HCPCS: 93971

== ENCOUNTER 2025-02-08 09:25 | Outpatient (CLI) | payer MEDICARE, SELFPAY ==
--- OUTSIDE RECORDS SUMMARY | 2010-03-21 03:00 | XMS_ITS | Continuity of Care Document ---
Author Organization [facility] Address [address] [facility] [address] [place] [address] Phone Care Team Providers Care Policy Writer Typist Name Role Phone Durán OD, Yifan Unavailable Unavailable Procedures Procedure Date Office/outpatient Visit, Est Office/outpatient Visit, Est Eye Exam & Treatment Refraction Eye Exam & Treatment Refraction Advance Directives Directive Yes / No Effective Date File Name No Information Encounters Encounter Description Practice Location Reason(s) For Visit Diagnoses Date Provider Providers Copied on Encounter Office/outpat ient Visit, Est [facility], [address], [place], [place], [id number], [place] tel:[phone] [facility] No Information 2-201 0 Durán OD Yifan. [address] [facility] [address], [address], [place], [address], [place]. tel:[phone] Referring Provider: Vincent Kline MD, [address] [place] [address] [address], [place], [address]. tel:[phone] Office/outpat ient Visit, Est [facility], [address], [place], [place], [address], [place] tel:[phone] [facility] No Information 2-200 9 Durán OD Yifan. [address] [facility] , [address], [place], [address], [place]. tel:[phone] [facility], [address], [place], [place], [address], [place] tel:[phone] [facility] No Information Nov-0 7-200 8 Durán OD Yifan. [address] [facility] , [address], [place], [address], [place]. tel:[phone] [facility] Eye [facility], [address], [place], [place], [address], [place] tel:[phone] [facility] No Information Nov-0 8-200 7 Durán OD Yifan. [address] [facility] , [address], [place], [place], [facility], [place]. tel:[phone] Family History Family Member Type Diagnosis Age At Onset No Information Payers Payer name Insurance type Covered constitution party ID Authoriza tion(s) No Information Social History [...]
--- NOTE | ~2025-02-08 | US_ITS ---
EXAMINATION: US venous doppler LE , 02/08/2025 9:48 CDT HISTORY: left leg swelling Comparison: Comparison 12/27/2024. Technique: Toussaint-scale and color Doppler images were attempted of the lower saphenofemoral junction, common femoral vein,superficial femoral vein, proximal deep femoral vein, proximal deep femoral vein, popliteal vein and posterior tibial veins. Findings: Deep Venous System:There is thrombus within the mid left superficial femoral vein extending into the popliteal vein bilaterally unchanged compared to the previous studies. Superficial Venous SystemNo superficial thrombophlebitis. Soft tissues: Soft tissues are unremarkable. Impression: DVT detailed above. The findings appear relatively unchanged Reviewed, dictated and finalized at location P. Impression: DVT detailed above. The findings appear relatively unchanged
--- OUTSIDE RECORDS SUMMARY | 2025-02-08 09:55 | XMS_ITS | Clinical Summary ---
Author Organization [facility] Address [address] [place] [address] Care Team Providers Care Credit Risk Management Director Name Role Phone Rm Vee Primary Care Provider [phone] Allergies No known active allergies Medications docusate [...] DAILY DIRECTED 1 02/21/20 19 Active Insulin Carlyle, Disposable, 32 gauge x 5/16 Needle Use to inject insulin once a day 04/14/20 17 Active ascorbic acid (VITAMIN C) 500 mg Tablet, Chewable Take 500 mg by mouth. Active gabapentin (NEURONTIN) 300 mg capsule Take 1 Capsule (300 mg) by mouth 3 times daily. 90 Capsule 1 12/12/19 20 Active clotrimazole-b etamethasone (LOTRISONE) 1-0.05 % Cream APPLY TOPICALLY TO THE AFFECTED AREA(S) TWICE A DAY 03/25/20 20 Active lidocaine-pril ocaine (EMLA) 2.5-2.5 % CreamIndicatio ns:Malignant neoplasm of descending colon (CMS/HCC) Apply 30 Grams to affected area see administration instructions. Please apply to port site 30 min before chemo 30 Gram 1 09/12/19 21 Active loperamide (IMODIUM) 2 mg capsuleIndicat ions:Malignant [...] FOR ITCHING 90 Tablet 08/08/19 25 Active rivaroxaban (Xarelto) 20 mg Tablet Take 1 Tablet (20 mg) by mouth daily with supper. 90 Tablet 1 01/30/20 25 Active rivaroxaban (Xarelto DVT-PE Treat 30d Start) 15 mg (42)- 20 mg (9) Tablets, Dose Pack Take 15 mg by mouth twice daily with food for the first 21 days of treatment then take 20 mg once daily with food for remaining treatment. 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 [address] [place] [address] Baljinder Pena MD Leg Swelling 01/29/2025 Refill [facility] [place] [facility] Heather [address] [place] [address] Baljinder Pena MD 01/03/2025 4:30 PM CDT Telephone Check Up [facility] [place] [facility] and [facility] [address] [place] [address] Baljinder Pena MD Malignant neoplasm of descending colon (CMS/HCC) (Primary Dx) 01/02/2025 External Device Data STL ABSTRACTION Provider, Abstract 12/13/2024 Refill [facility] [place] [facility] and Hematology [facility] [address] [place] [address] Baljinder Pena MD Acute deep vein thrombosis (DVT) of proximal vein of left lower extremity ([facility]/HCC) 12/12/2024 External Device Data STL ABSTRACTION Provider, Abstract 11/27/2024 10:00 AM CDT Office Visit [facility] [place] [facility] critical [facility] Hematology [facility] [address] [place] [address] Baljinder Pena MD Acute deep vein thrombosis (DVT) of proximal vein of left lower extremity (CMS/HCC) 11/23/2024 Orders Only [facility] [place] [facility] and Hematology - [place] [address] [place] [address] Baljinder Pena MD 11/23/2024 Refill [facility] [place] [facility] and [facility]ology - [place] [address] [place] [address] Baljinder Pena MD Acute deep vein thrombosis (DVT) of proximal vein of left lower extremity (CMS/HCC) (Primary Dx) 11/22/2024 External Device Data STL ABSTRACTION Provider, Abstract 11/21/2024 External Device Data STL ABSTRACTION Provider, Abstract 11/08/2024 Orders Only [facility] [place] [facility] and [facility]ology - [place] [address] [place] [address] Baljinder Pena MD from Last 3 Months [...] Care Team (Late st Contact Info) Description 05/16/2025 11:00 AM LOADING AND UNLOADING SUPERVISOR Office Visit [facility] [place] [facility] and Hematology - [place] [address] [facility] [address] [place] [address] Baljinder Pena MD [address] [facility] [address] [place] [address] Health Maintenance Due Date Last Done Comments DIABETES MICROALBUMIN ANNUAL SCREEN 1960 LDL CHOLESTEROL ANNUAL 1960 DTAP/TDAP/TD VACCINES (1 - Tdap) 1961 RSV VACCINE (60+ or ) (1 - 1-dose 75+ series) 2017 DIABETES ANNUAL FOOT EXAM 10/27/2024 10/28/2023 INFLUENZA VACCINE (#1) 2024 , 01/07/2021, 01/07/2021, Additional history exists DIABETES ANNUAL RETINAL EXAM 01/13/202510/2023, 12/17/2022, 12/11/2020, Additional history exists DIABETES HBA1C Q 6 MONTHS 04/18/20252024, 04/18/2024, 10/28/2023, Additional history exists PNEUMOCOCCAL VACCINE 50+ YEARS Completed 0 01/21/2017, 01/21/2016, 01/20/2016 ZOSTER VACCINE Completed 01/02/2018, 11/02/2017 Procedures Procedure Name Priority Date/Time Associated Diagnosis Comments CT ABDOMEN PELVIS W CONTRAST Routine 11/23/2024 12:20 PM CDT US VENOUS DOPPLER LEG LEFT Routine 11/23/2024 12:18 PM CDT from Last 3 Months Results * CT ABDOMEN PELVIS W CONTRAST (11/23/2024 12:20 PM CDT) Anatomical Region Laterality Modality Abdomen Computed Tomogra phy us Baljinder Pena MD CT ORDERABLES Final Result * US VENOUS DOPPLER LEG LEFT (11/23/2024 12:18 PM CDT) Anatomical Region Laterality Modality Lower Extremity Ultrasound Baljinder Pena MD ORDERABLES Final Result from Last 3 Months Insurance MEDICARE PART A AND B [facility] MEDICARE SUPPLEMENT MEDICARE PART A AND B [employer] MEDICARE SUPPLEMENT Care Teams Credit Risk Management Director Relationship Specialty Start Date End Date Rm Vee DO [address] [facility] [address] [facility] [address] [place] [phone] PCP - General Internal Medicine 05/22/24
--- OUTSIDE RECORDS SUMMARY | 2025-02-08 09:55 | XMS_ITS | Clinical Summary ---
Author Organization [facility] [place] [place] 8 [facility] Address [address] [place] [address] Care Team Providers Care Criminal Attorney Name Role Phone Baljinder Pena MD Unavailable [phone] Rm Vee DO Primary Care Provider [phone] Allergies No known active allergies Medications finasteride [...] hyperglycemia, with long-term current use of insulin ([facility]) Check blood sugar twice a day. 200 each 3 4 Active insulin glargine (LANTUS) 100 unit/mL (3 mL) pen for injectionIndicat ions:Type 2 diabetes mellitus with hyperglycemia, with long-term current use of insulin ([facility]) Inject 42-44 Units under the skin nightly 45 mL 3 4 03/09/20 25 Active blood glucose diagnostic (OneTouch Ultra Test) stripIndications :Type 2 diabetes mellitus with hyperglycemia, with long-term current use of insulin ([facility]),Essential hypertension One Touch Ultra Blue Dx: E11.65 insulin dependent. Check blood sugar 2 times daily. 600 each 1 4 Active pen needle, diabetic (TRUEplus Pen Needle) 32 gauge x 5/32 needleIndication s:Type 2 diabetes mellitus with hyperglycemia, with long-term current use of insulin ([facility]) Use 1 pen needle twice [...] 06/10/2023 Assessment & Plan (06/10/2023 9:30 AM SLOT MACHINE REPAIRER): Discussed healthy diet and importance of regular physical activity (20- 30min/day, 150min/wk). Hyperlipidemia associated with type [address] 10/14/2017 Assessment & Plan (10/17/2024 8:53 AM CDT): Chronic problem. Controlled on current Simvastatin 40mg & fenofibrate 134mg daily. Last lipid panel: 12/31/24 PDC=624, GH=165. Assessment & Plan (04/18/2024 9:35 AM SLOT MACHINE REPAIRER): Chronic problem. Controlled on current Simvastatin 40mg & fenofibrate 134mg daily. Last lipid panel: 12/15/22 LDL=87, YN=691. Will update labs. Does not mychart. Verified phone #/address to contact re: results. Assessment & Plan (10/28/2023 9:23 AM CDT): Chronic problem. Controlled on current Simvastatin 40mg & fenofibrate 134mg daily. Last lipid panel: 12/15/22 LDL=87, IZ=469. Assessment & Plan (06/10/2023 8:51 AM SLOT MACHINE REPAIRER): Chronic problem. Controlled on current Simvastatin 40mg. Last lipid panel: 12/15/22 LDL=87, RU=401. Assessment & Plan (12/08/2022 11:13 AM CDT): Chronic problem. Controlled on current Simvastatin 40mg. Last lipid panel: 07/17/20 LDL=62, MQ=532. Will update labs today. Does not mychart. Verified phone #/address to contact re: results. Assessment & Plan (06/25/2022 12:17 PM SLOT MACHINE REPAIRER): Chronic, controlled Will get report of lipid profile done recently Continue simvastatin Assessment & Plan (12/23/2021 11:13 AM CDT): Chronic, well controlled Low fat Low cholesterol diet Exercise Continue statin therapy Assessment & Plan (06/17/2021 3:09 PM SLOT MACHINE REPAIRER): Chronic, well controlled Continue current meds, simvastatin 40 mg daily Assessment & Plan (11/14/2020 10:23 AM CDT): At goal on current medications. Continue statin therapy. Assessment & Plan (07/11/2020 10:32 AM SLOT MACHINE REPAIRER): Will check lipid panel today Assessment & [...] therapy Assessment & Plan (06/02/2019 1:13 PM SLOT MACHINE REPAIRER): At goal on current medications. Continue statin therapy. Assessment & Plan (01/19/2019 10:13 AM CDT): At goal on current medications. Continue statin therapy. Assessment & Plan (10/13/2018 9:40 AM CDT): Continue statin therapy Assessment & Plan (04/26/2018 3:35 PM SLOT MACHINE REPAIRER): At goal on current medications. Assessment & [...] 12/24/2016 Assessment & Plan (07/11/2020 12:12 PM SLOT MACHINE REPAIRER): Wt continues to increase. Importance of following diet and exercising discussed. Assessment & Plan (03/23/2017 8:55 AM SLOT MACHINE REPAIRER): Importance of following diet and exercising discussed. [...] mild NPDR wo DME [facility] [place]) Strive for regular exercise (30min most days) [...] infection. Assessment & Plan (04/18/2024 9:35 AM SLOT MACHINE REPAIRER): Chronic problem. A1c improved from 6.9% 10/28/23 to now 6.7%. Current medications: Glimepiride 4mg daily Metformin 850mg twice daily with meals Levemir 42 units at bedtime Will update labs. Does not mychart. Verified phone #/address to contact re: results. UTD DM eye exam (01/14/24 mild NPDR wo DME [facility] [place]) Strive for regular exercise (30min most days) [...] on labs. UTD DM eye exam (12/17/22 [facility]) Strive for regular exercise (30min most [...] infection. Assessment & Plan (06/10/2023 9:33 AM SLOT MACHINE REPAIRER): Chronic problem. A1c jaun from 7.7% to now 8.2%. Will increase lantus to 42 units nightly due to higher blood sugars. Will increase by 2 units weekly if fasting blood sugars in the morning less not less than 150 without hypoglycemia. Current medications: Glimepiride 4mg daily Metformin 850mg twice daily with meals Levemir 42 units at bedtime UTD on labs. DM eye exam last year at [facility] & has appt set for 12/17/22. [...] results. DM eye exam last year at [facility] & has appt set for 12/17/22. [...] infection. Assessment & Plan (06/25/2022 12:18 PM SLOT MACHINE REPAIRER): Hba1c was Lab Results Component Value Date [...] current Assessment & Plan (06/17/2021 3:10 PM SLOT MACHINE REPAIRER): Hba1c was Lab Results Component Value Date [...] reviewed. Assessment & Plan (07/11/2020 12:11 PM SLOT MACHINE REPAIRER): A1c 6.4. Continue current medication plan. BG [...] day Assessment & Plan (06/02/2019 1:15 PM SLOT MACHINE REPAIRER): Your A1c is 6.8. No hypoglycemia. Appetite [...] discussed. Assessment & Plan (04/26/2018 3:33 PM SLOT MACHINE REPAIRER): A1c 7.4. Still acceptable for age. Continue current medication plan. BG goals reviewed. Assessment & Plan (10/14/2017 9:51 AM CDT): Your Hba1c today was: Lab Results Component Value Date HGBA1C 7.1 10/14/2017 meaning a 3 month average sugar of : 150 Your goal hba1c is under 7.0 to prevent shelter diabetes complications ( eye , kidney and [...] units. Assessment & Plan (03/23/2017 8:55 AM SLOT MACHINE REPAIRER): A1c is 6.9 without reported hypoglycemia. Continue [...] daily. Assessment & Plan (04/18/2024 9:35 AM SLOT MACHINE REPAIRER): Chronic problem. Currently taking Carvedilol 6.25mg bid, lisinopril 40mg, hydralazine 50mg tid, & felodipine 10mg daily. Will update labs. Does not mychart. Verified phone #/address to contact re: results. Assessment & Plan (10/28/2023 9:23 AM CDT): Chronic problem. Currently taking Carvedilol 6.25mg bid, lisinopril 40mg, hydralazine 50mg tid, HCTZ 50mg daily & felodipine 10mg daily. Assessment & Plan (06/10/2023 8:51 AM SLOT MACHINE REPAIRER): Chronic problem. Currently taking Carvedilol 6.25mg bid, [...] elevated. Assessment & Plan (06/25/2022 12:18 PM SLOT MACHINE REPAIRER): Chronic, well-controlled Continue lisinopril Assessment & Plan (12/23/2021 11:13 AM CDT): Chronic, well controlled Continue current meds Assessment & Plan (06/17/2021 3:10 PM SLOT MACHINE REPAIRER): Chronic, well controlled Continue current meds Assessment & Plan (07/11/2020 10:32 AM SLOT MACHINE REPAIRER): Controlled on current medications. Continue plan. Assessment & Plan (11/09/2019 10:08 AM CDT): Goal blood pressure is less than 140/85 Low salt diet recommended Daily aerobic exercise Continue current meds, including RAFAEL-I or ARB, with Lisinopril Assessment & Plan (06/02/2019 1:13 PM SLOT MACHINE REPAIRER): Controlled on current medications. Continue plan. Assessment & Plan (01/19/2019 10:13 AM CDT): Controlled on current medications. Continue plan. Assessment & Plan (10/13/2018 9:42 AM CDT): Check home BP readings. If continues < 60, record and contact PCP Assessment & Plan (04/26/2018 3:35 PM SLOT MACHINE REPAIRER): Controlled on current medications. Assessment & Plan (10/14/2017 9:57 AM CDT): Goal blood pressure is less than 140/85 Low salt diet recommended Daily aerobic exercise Continue current meds, including RAFAEL-I or ARB Assessment & Plan (03/23/2017 8:55 AM SLOT MACHINE REPAIRER): Controlled on current medications. Assessment & Plan [...] 12/08/2022 12/08/2022 Body mass index 40.0-44.9, adult ([facility]) 12/08/2022 12/08/2022 Class 3 severe [...] NEC/NOS Assessment & Plan (03/23/2017 8:56 AM SLOT MACHINE REPAIRER): Continue statin and fenofibrate Encounters Date Type Department Care Team Description 02/02/[address] [facility] Medical Group Diabetes and Endocrinology [address] [place] [id number] Provider, MD Colleen from Last 3 Months Surgical History Surgery Date Site/Laterality Comments KNEE SURGERY Right Medical History Medical History Date Comments Hyperlipidemia Hyperlipidemia Diabetes mellitus Diabetes Hypertension Hypertension Hx Other Medical Not Claustropho bic; Comments: [facility] 01/02/2014 - Colon cancer (HCC) History of [...] on file Legal Sex Male 1:16 AM SLOT MACHINE REPAIRER Gender Identity Not on file Sexual Orientation [...] 2025 9, 01/24/2018, 01/17/2017, Additional history exists Hemoglobin A1C 04/18/2025 10/17/2024, 04/09, 10/28/2023, Additional history exists Albumin Creatinine Ratio, Urine 05/09/2025 05/09/2024, 12/15/2022, 07/17/2020, Additional history exists Lipid Panel 05/09/2025 05/09/2024, 0812/2022, 07/17/2020, Additional history exists eGFR 05/09/2025 05/09/2024, 05/11, 07/17/2020, Additional history exists Dilated Eye Exam 01/29/2026 01/29/2025, 10/2023, 12/17/2022, Additional history exists Pneumococcal vaccine 65+ Completed 01/21/2017, 01/08 Zoster Vaccine Completed 01/02/2018, 11/02/2017 Abdominal Aortic Aneurysm (A AA) Screen Completed 09/23/2020, 03/19/2020, 06/05/2019 Procedures Procedure Name Priority Date/Time Associated Diagnosis Comments DIABETES EYE EXAM Routine 01/29/2025 7:30 AM CDT POCT HEMOGLOBIN A1C Routine 10/17/2024 9 :02 AM CDT Type 2 diabetes mellitus with hyperglycemia, with long-term current use of insulin (HCC) COMPREHENSIVE METABOLIC PANEL Routine 05/09/2024 8:27 AM SLOT MACHINE REPAIRER LIPID PANEL Routine 05/09/2024 8:27 AM SLOT MACHINE REPAIRER ALBUMIN CREATININE RATIO, URINE Routine 05/09/2024 8:27 AM SLOT MACHINE REPAIRER from Last 3 Months or Most Recently Relevant to Health Maintenance Results * (ABNORMAL) DIABETES EYE EXAM (01/29/2025 7:30 AM CDT) [facility] Provider HEALTH MAINTENANCE Final Result * (ABNORMAL) POCT hemoglobin A1c (10/17/2024 9:02 AM CDT) Hemoglobin A1C, POC 6.9(A) 4.0 - 5.6 % Blood 10/17/2024 9:02 AM CDT Katharine Dewitt NP POINT OF CARE TEST ORDERA BLES Final Result * (ABNORMAL) Albumin Creatinine Ratio, Urine (05/09/2024 8:27 AM SLOT MACHINE REPAIRER) Creatinine, ur 69 20 - 320 mg/dL [facility] Microalbumin, ur 37.6 See Note: mg/dL [facility] Comment: Reference Range: Reference Range Not established Verified by repeat analysis. Microalbumin/creat ratio 545(H) <30 mg/g creat [facility] Comment: The ADA defines abnormalities in albumin excretion as follows: Albuminuria Category Result (mg/g creatinine) Normal to Mildly increased <30 Moderately increased 30-299 Severely increased > OR = 300 The ADA recommends that at least two of three specimens collected within a 3-6 month period be abnormal before considering a patient to be within a diagnostic category. 05/09/2024 8:27 AM SLOT MACHINE REPAIRER 05/09/2024 8:27 AM SLOT MACHINE REPAIRER Narrative [facility] - 05/10/2024 5:10 AM SLOT MACHINE REPAIRER FASTING:NO FASTING: NO us Katharine Dewitt NP LAB URINE ORDERABLES Sharda puga Result KAREN [facility] [address] [address] [facility] [place] [address] * (ABNORMAL) Lipid panel (05/09/2024 8:27 AM SLOT MACHINE REPAIRER) Pathologist [facility] Cholesterol 180 <200 mg/dL [facility] HDL 34(L) > OR = 40 mg/dL [facility] Triglycerides 221(H) <150 mg/dL [facility] Comment: If a non-fasting specimen was collected, consider repeat triglyceride testing on a fasting specimen if clinically indicated. Eitan et al. J. of Clin. Lipidol. 2015;9:129-169. LDL 113(H) mg/dL (calc) [facility] Comment: Reference range: <100 Desirable range <100 mg/dL for primary prevention; <70 mg/dL for patients with CHD or diabetic patients with > or = 2 CHD risk factors. LDL-C is now calculated using the Brodie-Polo calculation, which is a validated novel method providing better accuracy than the Friedewald equation in the estimation of LDL-C. Brodie SS et al. BATSHEVA. 2013;310(19): 2567-7445 (http://education.[employer] Multi[employer]/faq/DBW109) Chol/HDL ratio 5.3(H) <5.0 (calc) [facility] Non-HDL, (LDL+VLDL) 146(H) <130 mg/dL (calc) [facility] Comment: For patients with diabetes plus 1 major ASCVD risk factor, treating to a non-HDL-C goal of <100 mg/dL (LDL-C of <70 mg/dL) is considered a therapeutic option. 05/09/2024 8:27 AM SLOT MACHINE REPAIRER 05/09/2024 8:27 AM SLOT MACHINE REPAIRER Narrative [facility] - 05/10/2024 5:10 AM SLOT MACHINE REPAIRER FASTING:NO FASTING: NO Katharine Dewitt PERFECT BINDER FEEDER OFFBEARER LAB BLOOD ORDERABLES Sharda l Result [facility] [address] [place] [address] * (ABNORMAL) Comprehensive metabolic panel (05/09/2024 8:27 AM SLOT MACHINE REPAIRER) Pathologist [facility] Glucose 154(H) 65 - 139 mg/dL [facility] Comment: Non-fasting reference interval BUN 31(H) 7 - 25 mg/dL [facility] Creatinine 1.46(H) 0.70 - 1.22 mg/dL [facility] eGFR 48(L) > OR = 60 mL/min/1.7 3m2 [facility] BUN/creat ratio 21 6 - 22 (calc) [facility] Sodium 138 135 - 146 mmol/L [facility] Potassium, pl 4.4 3.5 - 5.3 mmol/L [facility] Chloride 108 98 - 110 mmol/L [facility] CO2 23 20 - 32 mmol/L [facility] Calcium 8.8 8.6 - 10.3 mg/dL [facility] Protein, sr 6.3 6.1 - 8.1 g/dL [facility] Albumin 3.9 3.6 - 5.1 g/dL [facility] GLOBULIN 2.4 1.9 - 3.7 g/dL (calc) [facility] Alb/glob ratio 1.6 1.0 - 2.5 (calc) [facility] Bilirubin, total 0.4 0.2 - 1.2 mg/dL [facility] Alk phos 20(L) 35 - 144 U/L [facility] AST 24 10 - 35 U/L [facility] ALT (SGPT) 28 9 - 46 U/L [facility] 05/09/2024 8:27 AM SLOT MACHINE REPAIRER 05/09/2024 8:27 AM SLOT MACHINE REPAIRER Narrative [facility] - 05/10/2024 5:10 AM SLOT MACHINE REPAIRER FASTING:NO FASTING: NO us Katharine Dewitt PERFECT BINDER FEEDER OFFBEARER LAB BLOOD ORDERABLES Sharda l Result [facility] [id number] [place] [address] from Last 3 Months or Most Recently Relevant to Health Maintenance [place] [address] MEDICARE [facility] Address: [address] [address] [place] [address] [facility] [address] [place] [address] MEDICARE [facility] [id number] [place] [address] Care Teams Criminal Attorney Relationship Specialty Start Date End Date Rm Vee DO [address] [place] [address] PCP - General Internal Medicine 04/18/24 Baljinder Pena MD [address] [place] [address] Referring Physician Hematology 06/25/22
--- OUTSIDE RECORDS SUMMARY | 2025-02-08 09:55 | XMS_ITS | Encounter Summary ---
Author Organization [facility] Address [address] [place] [address] Care Team Providers Care Vest Presser Name Role Phone Rm Vee DO Primary Care Provider [phone] Reason for Referral * Radiology Services (Urgent) - Open Specialty Diagnoses / Procedures Referred By Lata shane Referred To Contact Diagnoses Left leg swelling Procedures US VENOUS DOPPLER LEG LEFT Baljinder Pena MD [address] [place] [address] Phone: tel: fax: Referral ID Status Reason Start Date Expiration Date Visits Re quested Visits Authorized [id number] Open 02/07/2025 03/10/2026 1 1 Reason for Visit * Reason Onset Date Comments Leg Swelling 02/07/2025 Encounter Details Date Type Department Care Team (Late st Contact Info) Description 02/07/2025 Telephone [facility] Oncology and Hematology - [place] [address] [facility] [address] [place] [address] Baljinder Pena MD [address] [place] [address] Leg Swelling Social History Tobacco Use Types Packs/Day Years Used Date Smoking Tobacco: Former Cigarettes 2 30 0 10/24/1965 - 10/25/1995 Smokeless Tobacco: Never Alcohol Use Standard Drinks/Week Comments Yes 0 (1 standard drink = 0.6 oz pur e alcohol) Sex and Gender Information Value Date Recorded Sex Assigned at Not on file Legal Sex Male 9:41 AM CDT Gender Identity Not on file Sexual Orientation Not on file documented as of this encounter Miscellaneous Notes * Telephone Encounter - Bria Obregon - 02/07/2025 4:19 PM CDT Patient is set up for US tomorrow. Patient is aware of recommendations. * Telephone Encounter - Bria Obregon - 02/07/2025 1:21 PM CDT LVM for patient to give our office a call back. He will need to have doppler done. * Telephone Encounter - Bria Obregon - 02/07/2025 1:17 PM CDT ----- Message from Dr. Baljinder Pena sent at 02/07/2025 12:08 PM CDT ----- Regarding: RE: Leg Swelling Please order the Doppler study on the left lower extremity ----- Message ----- From: Bria Obregon Sent: 02/07/2025 11:30 AM CDT To: Baljinder Pena MD Subject: Leg Swelling Patient called because he was switched from Lovenox to Xarelto. He has been on the Xarelto about 1 month and he says that he is having some left leg swelling. He does not report any other symptoms but wants to know what he should do? Please advise. documented in this encounter Plan of Treatment Upcoming Encounters Date Type Department Care Team (Late st Contact Info) Description 05/16/2025 11:00 AM PROCUREMENT COST COORDINATOR Office Visit [facility] Oncology and Hematology - [place] [address] [facility] [address] [place] [address] Baljinder Pena MD [address] [facility] [address] [place] [address] Scheduled Orders Name Type Priority Associated Diagnoses Orde r Schedule US VENOUS DOPPLER LEG LEFT Imaging Stat Left leg swelling Expected: 02/07/2025, Expires: 02/07/2026 documented as of this encounter Visit Diagnoses Diagnosis Left leg swelling- Primary documented in this encounter Care Teams Vest Presser Relationship Specialty Start Date End Date Rm Vee DO [address] [facility] [address] [facility] [address] [place] [id number] PCP - General Internal Medicine 05/22/24 documented as of this encounter
== END 2025-02-08 09:26 | disposition home or self-care (01) ==
PROVIDERS: PCP Internal Medicine; Visit Provider Internal Medicine Hematology & Oncology
DX: I82.412 Acute embolism and thrombosis of left femoral vein (principal); I82.432 Acute embolism and thrombosis of left popliteal vein; M79.89 Other specified soft tissue disorders
CPT/HCPCS: 93971

== ENCOUNTER 2025-04-12 09:43 | Outpatient (CLI) | payer MEDICARE, SELFPAY ==
[2025-04-12 10:23] LABS: Hematocrit 32.3 % (42.0-52.0); Hemoglobin 10.8 g/dL (14.0-18.0); Immature Granulocyte Percent A 0.2 % (0-0.5); Lymphocytes Absolute Auto 1.20 K/mm3 (0.9-3.2); Mean Corpuscular HGB Conc 33.4 g/dl (32-36); Mean Corpuscular Hemoglobin 30.1 pg (26-34); Mean Corpuscular Volume 90.0 fl (80-100); Nucleated Red Blood Cells Absolute Auto 0.000 K/mm3 (0.0-0.012); Nucleated Red Blood Cells Perc 0.0 % (0.0-0.2); Platelet Count Result 182 k/mm3 (150-375); Red Blood Count 3.59 M/mm3 (4.6-6.20); White Blood Count 5.7 K/mm3 (4.5-10.0)
[2025-04-12 13:08] LABS: Alanine Aminotransferase 21 U/L (6-50); Albumin Level 4.1 g/dL (3.5-5.1); Alkaline Phosphatase 36 U/L (38-126); Anion Gap 5 mmol/L (4-12); Aspartate Amino Transferase 23 U/L (17-59); Bilirubin,Total 0.6 mg/dL (0.2-1.3); Blood Urea Nitrogen 36 mg/dL (9-20); Calcium 9.6 mg/dL (8.4-10.2); Carbon Dioxide 26 mmol/L (22-30); Chloride 107 mmol/L (98-107); Estimated Glomerular Filt Rate 40; Glucose 171 mg/dL (65-110); Potassium 4.3 mmol/L (3.4-5.0); Sodium 138 mmol/L (137-145); Total Protein 7.2 g/dL (6.3-8.2)
[2025-04-12 13:44] LABS: Carcinoembryonic Antigen 0.5 ng/mL (0.0-3.0)
== END 2025-04-12 09:44 | disposition home or self-care (01) ==
LOC: ANHLAB 09:44
PROVIDERS: PCP Internal Medicine; Visit Provider Internal Medicine Hematology & Oncology
DX: C18.6 Malignant neoplasm of descending colon (principal)
CPT/HCPCS: 36415; 80053; 82378; 85025

== ENCOUNTER 2025-04-16 14:34 | Outpatient (CLI) | payer MEDICARE, SELFPAY ==
--- NOTE | ~2025-04-16 | US_ITS ---
EXAMINATION: US scrotum doppler DATE: 04/16/2025 15:17 INDICATION: Right scrotal swelling TECHNIQUE: Testicular sonogram utilizing grayscale and Doppler COMPARISON: None. FINDINGS: The right testis measures 4.0 x 3.2 x 2.3 cm. 7 x 4 x 6 mm echogenic right testicular appendix. The left testis measures 4.5 x 3.6 x 2.5 cm. Symmetric normal grayscale appearance to both testes. There is normal vascular flow to both testes. 3 mm anechoic epididymal cyst at the right epididymis. The right epididymis is otherwise normal with normal vascular flow. The left epididymis is normal with normal vascular flow. There is no varicocele.. Moderate sized anechoic right hydrocele. IMPRESSION: 1. Moderate-sized right hydrocele. Otherwise unremarkable testes and epididymides. Reviewed, dictated and finalized at location A. TICE ASSISTANT IMPRESSION: 1. Moderate-sized right hydrocele. Otherwise unremarkable testes and epididymi gabriella.
== END 2025-04-16 14:35 | disposition home or self-care (01) ==
LOC: MICIMG 14:35
PROVIDERS: PCP Internal Medicine; Visit Provider Internal Medicine
DX: N50.89 Other specified disorders of the male genital organs (principal); N43.2 Other hydrocele
CPT/HCPCS: 76870; 93976

== ENCOUNTER 2025-05-09 08:17 | Outpatient (CLI) | payer MEDICARE, SELFPAY ==
--- NOTE | ~2025-05-09 | CT_ITS ---
EXAMINATION: CT chest abdomen pelvis w con DATE: 05/09/2025 08:48 INDICATION: Malignant neoplasm of descending colon. TECHNIQUE: Computed tomography (CT) of the chest, abdomen, and pelvis was performed with 100 mL Omnipaque 350 intravenous contrast. Automated exposure control and iterative reconstruction technique were employed. The dose-length product was 1783.93 mGy-cm. COMPARISON: CT abdomen and pelvis 11/23/2024, CT chest, abdomen, and pelvis 09/22/2018 FINDINGS: CHEST CT: There is mild emphysema. There is mild atelectasis bilaterally. There is a 10 mm nodule in left lower lobe, stable from 09/22/2018, likely benign. Calcified pulmonary nodules are consistent with old granulomatous disease. No pleural effusion. The heart size is normal. There are coronary artery calcifications. No pericardial effusion. There is mild thoracic spondylosis. ABDOMEN/PELVIS CT: There are 2 masses in the liver with interrupted peripheral puddling of contrast measuring up to 5.3 cm, consistent with hemangiomas. There is a 4 mm cyst in the liver. The gallbladder and spleen are normal. There are calcifications in the pancreas, consistent with chronic pancreatitis. The adrenal glands and left kidney are normal. There are cysts in right kidney measuring up to 6.3 cm. The prostate is mildly enlarged. There is diverticulosis of the colon without evidence of diverticulitis. There are changes of right hemicolectomy. There are no pathologically enlarged lymph nodes. There is no free intraperitoneal fluid. There is severe lower lumbar spondylosis. IMPRESSION: 1. No evidence of metastatic disease. Reviewed, dictated and finalized at location E. [employer]
--- OUTSIDE RECORDS SUMMARY | 2025-05-09 08:21 | XMS_ITS | Clinical Summary ---
Author Organization [facility] Address [address] [place] [address] Care Team Providers Care Sports Activities Foul Judge Name Role Phone Rm Vee Primary Care Provider [phone] Allergies No known active allergies Medications docusate [...] TWICE DAILY DIRECTED 1 9 Active Insulin Webster, Disposable, 32 gauge x 5/16 Needle Use [...] NEEDED FOR ITCHING 90 Tablet 5 Active rivaroxaban (Xarelto) 20 mg Tablet Take 1 Tablet (20 mg) by mouth daily with supper. 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 Type 2 diabetes mellitus with hyperglycemia 05/12 Acute deep vein thrombosis ( DVT) of proximal vein of right lower extremity 06/09/2019 Malignant neoplasm of descending colon 9 Encounters Date Type Department Care Team Description 04/24/2025 External Device Data ST[facility] ABSTRACTION Provider, Abstract 04/13/2025 Orders Only [facility] - [place] [id number] Baljinder Pena MD 04/03/2025 External Device Data [facility] ABSTRACTION Provider, Abstract 02/28/2025 External Device Data [facility] ABSTRACTION Provider, Abstract 02/08/2025 Telephone [facility] - [place] [address] [place] [address] Baljinder Pena MD US Results 02/08/2025 Orders Only [facility] - [place] [address] [place] [address] Baljinder Pena MD 02/07/2025 Telephone [facility] - [place] [address] [place] [address] Baljinder Pena MD Leg Swelling from Last 3 Months Family History Medical [...] st Contact Info) Description 05/16/2025 11:00 AM GLUE MIXER Office Visit [facility] - [place] [address] [facility] [address] [place] [address] Baljinder Pena MD [address] [facility] [address] [place] [address] Health Maintenance Due Date Last Done Comments DIABETES MICROALBUMIN ANNUAL SCREEN 1960 LDL CHOLESTEROL ANNUAL 1960 DTAP/TDAP/TD VACCINES (1 - Tdap) 1961 Traditional Medicare (ACO) A nnual Wellness Visit 1961 RSV VACCINE (60+ or ) (1 [...] Associated Diagnosis Comments COMPREHENSIVE METABOLIC PANEL Routine 04/12/2025 12:05 PM GLUE MIXER CBC WITH AUTODIFFERENTIAL Routine 2024 11:08 AM GLUE MIXER US VENOUS DOPPLER LEG LEFT Routine 02/08 11:21 AM CDT from Last 3 Months Results * COMPREHENSIVE METABOLIC PANEL (04/12/2025 12:05 PM GLUE MIXER) Blood us Baljinder Pena MD CHEMISTRY ORDERABLES Final Resu lt * CBC WITH AUTODIFFERENTIAL (04/12/2025 11:08 AM GLUE MIXER) Blood us Baljinder Pena MD HEMATOLOGY ORDERABLES Final Res ult * US VENOUS DOPPLER LEG LEFT (02/08/2025 11:21 AM CDT) Anatomical Region Laterality Modality Lower Extremity Ultrasound us Baljinder Pena MD US ORDERABLES Final Result from Last 3 Months Insurance [place] [id number] MEDICARE PART A AND B [facility] [place] [address] MEDICARE PART A AND B [facility] MEDICARE SUPPLEMENT Care Teams Sports Activities Foul Judge Relationship Specialty Start Date End Date Rm Vee DO [address] [facility] [address] [place] [address] PCP - General Internal Medicine 05/22/24
--- OUTSIDE RECORDS SUMMARY | 2025-05-09 08:21 | XMS_ITS | Clinical Summary ---
Author Organization [facility] Address [address] [place] [address] Care Team Providers Care Coffee Sommelier Name Role Phone Baljinder Pena MD Unavailable [phone] Rm Vee DO Primary Care Provider [phone] Allergies No known active allergies Medications finasteride (PROSCAR) 5 mg tablet Take one by mouth one time per day at bedtime 0 0 08/16/19 10 Active felodipine (PLENDIL) 10 mg 24 hr tablet take 1 tablet (10MG) by ORAL route every day 0 02/14/20 10 Active amitriptyline (ELAVIL) 10 mg tablet take 1 tablet (10MG) by oral route 3 times every day 0 01/26/20 12 Active terazosin (HYTRIN) 10 mg capsule Take one by mouth one time per day 0 0 04/21/20 07 Active tamsulosin (FLOMAX) 0.4 mg extended release capsule Take 1 capsule (0.4 mg total) by mouth daily 2 08/05/19 18 Active ferrous sulfate 325 mg (65 mg of elemental iron) tablet Take 1 tablet (325 mg total) by mouth 2 (two) times a day 2 09/07/19 19 Active ascorbic acid (VITAMIN C) 500 mg tablet,chewable Take 1 tablet/chew tab (500 mg total) by mouth daily Active loperamide (IMODIUM) 2 mg capsule TAKE 1 CAPSULE BY MOUTH EVERY 3 HOURS NEEDED FOR DIARRHEA OR LOOSE STOOLS 09/08/19 20 Active furosemide (LASIX) 20 mg tablet TAKE 1 TABLET BY MOUTH ONCE DAILY IN THE MORNING 07/11/19 21 Active hydrALAZINE (APRESOLINE) 50 mg tablet Take 1 tablet (50 mg total) by mouth 3 (three) times a day 06/06/19 22 Active hydroCHLOROthia zide (HYDRODIURIL) 50 mg tablet Take 1 tablet (50 mg total) by mouth daily 11/30/19 23 Active ipratropium (ATROVENT) 21 mcg (0.03 %) nasal spray ADMINISTER 2 SPRAYS INTO EACH NOSTRIL THREE TIMES DAILY NEEDED FOR NASAL DRAINAGE. 09/02/19 24 Active lancets (OneTouch Delica Lancets) 33 gauge miscIndications :Type 2 diabetes mellitus with hyperglycemia, with long-term current use of insulin ([facility]) Check blood sugar twice a day. 200 each 3 12/28/19 24 Active pen needle, diabetic (TRUEplus Pen Needle) 32 gauge x 32 needleIndicatio ns:Type 2 diabetes mellitus with hyperglycemia, with long-term current use of insulin ([facility]) Use 1 pen needle twice daily 100 each 11 05/12/19 25 Active hydrOXYzine (ATARAX) 25 mg tablet TAKE 1 TABLET BY MOUTH THREE TIMES DAILY NEEDED FOR ITCHING 08/08/19 25 Active mometasone (ELOCON) 0.1 % cream APPLY 1 APPLICATION OF CREAM TOPICALLY ONCE DAILY; USE FOR 3-4 WEEKS OR UNTIL CLEARED 07/20/19 25 Active triamcinolone (KENALOG) 0.1 % cream APPLY TWICE DAILY NEEDED FOR UP TO 2 WEEKS THEN TAKE 1 WEEK OFF 09/26/19 25 Active metFORMIN (GLUCOPHAGE) 850 mg tabletIndicatio ns:Type 2 diabetes mellitus with hyperglycemia, with long-term current use of insulin ([facility]) Take 1 tablet (850 mg total) by mouth 2 (two) times a day with meals 180 tablet 3 10/18/19 25 2025 Active glimepiride (AMARYL) 4 mg tabletIndicatio ns:Type 2 diabetes mellitus with hyperglycemia, with long-term current use of insulin ([facility]) Take 1 tablet (4 mg total) by mouth daily before breakfast 90 tablet 3 10/18/19 25 2025 Active fenofibrate micronized (LOFIBRA) 134 mg capsuleIndicati ons:Hyperlipide brenda associated with type 2 diabetes mellitus ([facility]) Take 1 capsule (134 mg total) by mouth daily 90 capsule 3 10/18/19 25 Active simvastatin (ZOCOR) 40 mg tabletIndicatio ns:Hyperlipidem ia associated with type 2 diabetes mellitus (HCC) Take 1 tablet (40 mg total) by mouth daily 90 tablet 3 10/18/19 25 Active lisinopriL (PRINIVIL,ZESTR IL) 40 mg tabletIndicatio ns:Hypertension associated with diabetes (HCC) Take 1 tablet (40 mg total) by mouth daily 90 tablet 3 10/18/19 25 Active carvediloL (COREG) 6.25 mg tabletIndicatio ns:Hypertension associated with diabetes (HCC) Take 1 tablet (6.25 mg total) by mouth 2 (two) times a day with meals 180 tablet 3 10/18/19 25 Active blood glucose diagnostic (OneTouch Ultra Test) stripIndication s:Type 2 diabetes mellitus with hyperglycemia, with long-term current use of insulin ([facility]),Essential hypertension One Touch Ultra Blue Dx: E11.65 insulin dependent. Check blood sugar 2 times daily. 600 each 1 02/22/20 25 Active insulin glargine (LANTUS) 100 unit/mL (3 mL) pen for injectionIndica tions:Type 2 diabetes mellitus with hyperglycemia, with long-term current use of insulin ([facility]) Inject 42 Units under the skin nightly 45 mL 1 04/13/20 25 Active rivaroxaban (XARELTO) 20 mg tablet Take 1 tablet (20 mg total) by mouth daily with breakfast Active apixaban (ELIQUIS) 5 mg tablet Take 1 tablet (5 mg total) by mouth 2 (two) times a day 2024 Discontinued(P atient Reported) insulin glargine (LANTUS) 100 unit/mL (3 mL) pen for injectionIndica tions:Type 2 diabetes mellitus with hyperglycemia, with long-term current use of insulin ([facility]) Inject 42-44 Units under the skin nightly 45 mL 3 03/09/20 24 2024 Discontinued Active Problems Problem Noted Date Diagnosed Date Morbid (severe) obesity due to excess calories 0 06/10/2023 Class 2 severe obesity due t o excess calories with serious comorbidity and body mass index (BMI) of 39.0 to 39.9 in adult 06/10/2023 Assessment & Plan (06/10/2023 9:30 AM [employer]ER): Discussed healthy diet and importance of regular physical activity (20- 30min/day, 150min/wk). Hyperlipidemia associated with type [address] 10/14/2017 Assessment & Plan (04/23/2025 8:56 AM [employer] FEEDER): Chronic problem. Controlled on current Simvastatin 40mg & fenofibrate 134mg daily. Last lipid panel: 05/09/24 GIZ=880, VB=050. Will update labs. Verified that he uses [employer]. Aware to check results/results letter in [employer]. Will contact by phone if needed. Assessment & Plan (10/17/2024 8:53 AM CDT): Chronic problem. Controlled on current Simvastatin 40mg & fenofibrate 134mg daily. Last lipid panel: 05/09/24 OQR=541, KJ=467. Assessment & Plan (04/18/2024 9:35 AM [employer] FEEDER): Chronic problem. Controlled on current Simvastatin 40mg & fenofibrate 134mg daily. Last lipid panel: 12/15/22 LDL=87, BA=941. Will update labs. Does not mychart. Verified phone #/address to contact re: results. Assessment & Plan (10/28/2023 9:23 AM CDT): Chronic problem. Controlled on current Simvastatin 40mg & fenofibrate 134mg daily. Last lipid panel: 12/15/22 LDL=87, LZ=511. Assessment & Plan (06/10/2023 8:51 AM [employer]ER): Chronic problem. Controlled on current Simvastatin 40mg. Last lipid panel: 12/15/22 LDL=87, JZ=927. Assessment & Plan (12/08/2022 11:13 AM CDT): Chronic problem. Controlled on current Simvastatin 40mg. Last lipid panel: 07/17/20 LDL=62, JJ=447. Will update labs today. Does not mychart. Verified phone #/address to contact re: results. Assessment & Plan (06/25/2022 12:17 PM [employer]ER): Chronic, controlled Will get report of lipid profile done recently Continue simvastatin Assessment & Plan (12/23/2021 11:13 AM CDT): Chronic, well controlled Low fat Low cholesterol diet Exercise Continue statin therapy Assessment & Plan (06/17/2021 3:09 PM [employer]): Chronic, well controlled Continue current meds, simvastatin 40 mg daily Assessment & Plan (11/14/2020 10:23 AM CDT): At goal on current medications. Continue statin therapy. Assessment & Plan (07/11/2020 10:32 AM [employer]ER): Will check lipid panel today Assessment & [...] therapy Assessment & Plan (06/02/2019 1:13 PM [employer]ER): At goal on current medications. Continue statin therapy. Assessment & Plan (01/19/2019 10:13 AM CDT): At goal on current medications. Continue statin therapy. Assessment & Plan (10/13/2018 9:40 AM CDT): Continue statin therapy Assessment & Plan (04/26/2018 3:35 PM [employer]ER): At goal on current medications. Assessment & [...] 12/24/2016 Assessment & Plan (07/11/2020 12:12 PM [employer] FE[employer]ER): Wt continues to increase. Importance of following diet and exercising discussed. Assessment & Plan (03/23/2017 8:55 AM [employer] FE[employer]ER): Importance of following diet and exercising discussed. Type 2 diabetes mellitus wit h hyperglycemia, with long-term current use of insulin 08/15/2013 Overview (08/13/2016): DMII WO CMP UNCNTRLD Assessment & Plan (04/23/2025 9:14 AM [employer] FE[employer]ER): Chronic problem. A1c at goal & improved from 6.9% 10/17/24 to now 6.4%. no changes at this time. Current medications: Glimepiride 4mg daily Metformin 850mg daily with breakfast Lantus 39-42 units at bedtime, typically 40 units Will update labs. Verified that he uses [employer]. Aware to check results/results letter in [employer]. Will contact by phone if needed. UTD DM eye exam (01/29/25 mild NPDR wo DME [facility]) Strive for regular exercise (30min most days) and diet (get at least 4-5 servings of fruit and veggies daily, avoid processed foods, increase lean protein intake and decrease carb portions as well as fruit juices, regular soda & desserts). Watch carbs and simple sugars. Check the blood sugar 1-2x/day. Check the feet daily for skin breakdown and infection. Assessment & Plan (10/17/2024 9:17 AM CDT): Chronic problem. A1c increased from 6.7% 04/18/24 to now 6.9%. Current medications: Glimepiride 4mg daily Metformin 850mg twice daily with meals Levemir 42 units at bedtime UTD on labs. UTD DM eye exam (01/14/24 mild NPDR wo DME [facility] [place]) Strive for regular exercise (30min most days) [...] infection. Assessment & Plan (04/18/2024 9:35 AM [employer] FEEDER): Chronic problem. A1c improved from 6.9% 10/28/23 to now 6.7%. Current medications: Glimepiride 4mg daily Metformin 850mg twice daily with meals Levemir 42 units at bedtime Will update labs. Does not mychart. Verified phone #/address to contact re: results. UTD DM eye exam (01/14/24 mild NPDR wo DME [facility] [place]) Strive for regular exercise (30min most days) [...] on labs. UTD DM eye exam (12/17/22 [facility] [place]) Strive for regular exercise (30min most days) [...] infection. Assessment & Plan (06/10/2023 9:33 AM ST[employer] FEEDER): Chronic problem. A1c juan from 7.7% to [...] labs. DM eye exam last year at [facility] & has appt set for 12/17/22. 2nd [...] results. DM eye exam last year at [facility] & has appt set for 12/17/22. Letter [...] infection. Assessment & Plan (06/25/2022 12:18 PM [employer] FE[employer]ER): Hba1c was Lab Results Component Value Date [...] current Assessment & Plan (06/17/2021 3:10 PM [employer] FE[employer]ER): Hba1c was Lab Results Component Value Date [...] reviewed. Assessment & Plan (07/11/2020 12:11 PM [employer] FE[employer]ER): A1c 6.4. Continue current medication plan. BG [...] day Assessment & Plan (06/02/2019 1:15 PM [employer]ER): Your A1c is 6.8. No hypoglycemia. Appetite [...] discussed. Assessment & Plan (04/26/2018 3:33 PM [employer] FE[employer]ER): A1c 7.4. Still acceptable for age. Continue current medication plan. BG goals reviewed. Assessment & Plan (10/14/2017 9:51 AM CDT): Your Hba1c today was: Lab Results Component Value Date HGBA1C 7.1 10/14/2017 meaning a 3 month average sugar of : 150 Your goal hba1c is under 7.0 to prevent fci diabetes complications ( eye , kidney and [...] units. Assessment & Plan (03/23/2017 8:55 AM [employer] FE[employer]ER): A1c is 6.9 without reported hypoglycemia. Continue current medication plan. BG goals reviewed. Needs to focus on diet and exercise. Assessment & Plan (12/24/2016 10:01 AM CDT): Hba1c was 6.3 today, indicating adequate DM control 1800 calorie, consistent carb diet recommended 30 min daily aerobic and resistance exercise recommended Foot care discused. Prevention and treatment of hyypoglcyemia discussed. Stop Januvia Hypertension associated with type 2 diabetes aaliyah litus 01/26/2012 Overview (08/13/2016): Unspecified essential hypertension Assessment & Plan (04/23/2025 9:12 AM [employer] FE[employer]ER): Chronic problem. Currently taking Carvedilol 6.25mg bid, lisinopril 40mg, hydralazine 50mg tid, & felodipine 10mg daily. Assessment & Plan (10/17/2024 8:53 AM CDT): Chronic problem. Currently taking Carvedilol 6.25mg bid, lisinopril 40mg, hydralazine 50mg tid, & felodipine 10mg daily. Assessment & Plan (04/18/2024 9:35 AM [employer] FE[employer]ER): Chronic problem. Currently taking Carvedilol 6.25mg bid, lisinopril 40mg, hydralazine 50mg tid, & felodipine 10mg daily. Will update labs. Does not mychart. Verified phone #/address to contact re: results. Assessment & Plan (10/28/2023 9:23 AM CDT): Chronic problem. Currently taking Carvedilol 6.25mg bid, lisinopril 40mg, hydralazine 50mg tid, HCTZ 50mg daily & felodipine 10mg daily. Assessment & Plan (06/10/2023 8:51 AM [employer] FE[employer]ER): Chronic problem. Currently taking Carvedilol 6.25mg bid, [...] elevated. Assessment & Plan (06/25/2022 12:18 PM [employer]ER): Chronic, well-controlled Continue lisinopril Assessment & Plan (12/23/2021 11:13 AM CDT): Chronic, well controlled Continue current meds Assessment & Plan (06/17/2021 3:10 PM [employer]ER): Chronic, well controlled Continue current meds Assessment & Plan (07/11/2020 10:32 AM [employer] FE[employer]ER): Controlled on current medications. Continue plan. Assessment & Plan (11/09/2019 10:08 AM CDT): Goal blood pressure is less than 140/85 Low salt diet recommended Daily aerobic exercise Continue current meds, including RAFAEL-I or ARB, with Lisinopril Assessment & Plan (06/02/2019 1:13 PM [employer] FE[employer]ER): Controlled on current medications. Continue plan. Assessment & Plan (01/19/2019 10:13 AM CDT): Controlled on current medications. Continue plan. Assessment & Plan (10/13/2018 9:42 AM CDT): Check home BP readings. If continues < 60, record and contact PCP Assessment & Plan (04/26/2018 3:35 PM [employer] FE[employer]ER): Controlled on current medications. Assessment & Plan (10/14/2017 9:57 AM CDT): Goal blood pressure is less than 140/85 Low salt diet recommended Daily aerobic exercise Continue current meds, including RAFAEL-I or ARB Assessment & Plan (03/23/2017 8:55 AM [employer] FE[employer]ER): Controlled on current medications. Assessment & Plan [...] 12/08/2022 12/08/2022 Body mass index 40.0-44.9, adult ([facility]/HCC) 12/08/2022 12/08/2022 Class 3 severe obesity due [...] NEC/NOS Assessment & Plan (03/23/2017 8:56 AM ST[employer] FEEDER): Continue statin and fenofibrate Encounters Date Type Department Care Team Description 04/23/2025 9:00 AM [employer] AND [employer] FEEDER Office Visit [facility] Diabetes and Endocrinology [address] [place] [phone] Katharine Dewitt NP Type 2 diabetes mellitus with hyperglycemia, with long-term current use of insulin (HCC) (Primary Dx); Hypertension associated with type 2 diabetes mellitus (HCC); Hyperlipidemia associated with type 2 diabetes mellitus (HCC) 02/21/2025 Telephone [facility] Diabetes [facility] Endocrinology [address] [place] [phone] Katharine Dewitt NP Med Refill (One touch ultra blue test strips) from Last 3 Months Surgical History Surgery [...] Date Smoking Tobacco: Former Smokeless Tobacco: Never Tobacco Cessation:Counseling Given: Not [...] on file Legal Sex Male 1:16 AM [employer] Gender Identity Not on file Sexual Orientation Not on file Last Filed Vital Signs Vital Sign Reading Time Taken Comments Blood Pressure 128/62 04/23/2025 8:42 AM [employer] Pulse 56 04/23/2025 8:42 AM [employer]ER Temperature - - Respiratory Rate 18 04/23/2025 8:42 AM [employer]ER Oxygen Saturation - - Inhaled Oxygen Concentration - - Weight 122.2 kg (269 lb 8 oz) 04/23/2025 8:42 AM [employer]ER Height 172.7 cm (5' 7.99) 04/23/2025 8:42 AM CS T Body Mass Index 40.99 04/23/2025 8:42 AM [employer] FE[employer]ER Plan of Treatment Health Maintenance Due Date Last Done Comments Fall Risk Assessment 1940 Well Visit 65+ 10/07/2007 Depression Screening 12/23/2022 12/23/2021, 11/14/2020, 11/09/2019, Additional history exists Albumin Creatinine Ratio, Urine 05/09/2025 05/07/2025, 05/09/2024, 12/15/2022, Additional history exists Lipid Panel 05/09/2025 05/07/2025, 04/11, 12/15/2022, Additional history exists eGFR 05/09/2025 05/09/2024, 05/11, 07/17/2020, Additional history exists Hemoglobin A1C 10/22/2025 04/23/2025, 10/08, 04/18/2024, Additional history exists Dilated Eye Exam 01/29/2026 01/29/2025, 10/2023, 12/17/2022, Additional history exists Foot Exam 04/23/2026 04/23/2025, 10/09, 11/09/2019, Additional history exists DTaP/Tdap/Td Vaccine (2 - Td or Tdap) 08/25/2034 08/25/2024 Pneumococcal vaccine 65+ Completed 017, 01/21/2016, 01/20/2016 Zoster Vaccine Completed 01/02/2018, 11/02/2017 Abdominal Aortic Aneurysm (A AA) Screen Completed 09/23/2020, 03/19/2020, 06/05/2019 Hepatitis B Screening Completed 08/25/2024 Influenza Vaccine Completed 01/03/2025, , 01/07/2021, Additional history exists Procedures Procedure Name Priority Date/Time Associated Diagnosis Comments ALBUMIN CREATININE RATIO, URINE Routine 05/07/2025 9:50 AM [employer]ER Type 2 diabetes mellitus with hyperglycemia, with long-term current use of insulin (HCC) LIPID PANEL Routine 05/07/2025 9:50 AM [employer] FEEDER Type 2 diabetes mellitus with hyperglycemia, with long-term current use of insulin (HCC) Hyperlipidemia associated with type 2 diabetes mellitus (HCC) POCT HEMOGLOBIN A1C Routine 04/23/2025 8 :52 AM [employer]ER Type 2 diabetes mellitus with hyperglycemia, with long-term current use of insulin (HCC) POCT GLUCOSE Routine 04/23/2025 8:48 AM [employer] FE[employer]ER Type 2 diabetes mellitus with hyperglycemia, with long-term current use of insulin (HCC) HM DIABETES EYE EXAM Routine 01/29/2025 COMPREHENSIVE METABOLIC PANEL Routine 05/09/2024 8:27 AM [employer] AND [employer] FEEDER from Last 3 Months or Most Recently Relevant to Health Maintenance Results * (ABNORMAL) Albumin Creatinine Ratio, Urine (05/07/2025 9:50 AM [employer] AND [employer] FEEDER) Creatinine, ur 88 20 - 320 mg/dL [facility] Microalbumin, ur 69.9 See Note: mg/dL [facility] Comment: Reference Range: Reference Range Not established Results verified by repeat analysis on dilution. Microalbumin/creat ratio 794(H) <30 mg/g creat [facility] Comment: The ADA defines abnormalities in albumin excretion as follows: Albuminuria Category Result (mg/g creatinine) Normal to Mildly increased <30 Moderately increased 30-299 Severely increased > OR = 300 The ADA recommends that at least two of three specimens collected within a 3-6 month period be abnormal before considering a patient to be within a diagnostic category. Urine 05/07/2025 9:50 AM [employer] FEEDER 05/07/2025 9:50 AM [employer] AND [employer]ANGE FEEDER Narrative [facility] - 05/09/2025 5:40 AM ST[employer]ER AND [employer] FEEDER FASTING:NO FASTING: NO Katharine Dewitt CASING CREW LAB URINE ORDERABLES Sharda l Result [facility] [address] [place] [address] * (ABNORMAL) Lipid panel (05/07/2025 9:50 AM STARCHER AND [employer] FEEDER) Pathologist [facility] Cholesterol 136 <200 mg/dL [facility] HDL 38(L) > OR = 40 mg/dL [facility] Triglycerides 122 <150 mg/dL [facility] LDL 78 mg/dL (calc) [facility] Comment: [...] LDL-C. Brodie BALDERAS et al. BATSHEVA. 2013;310(19): 0648-2240 (http://education.[employer]/faq/KCF580) Chol/HDL ratio 3.6 <5.0 (calc) [facility] Non-HDL, (LDL+VLDL) 98 <130 mg/dL (calc) [facility] Comment: For patients with diabetes plus 1 major ASCVD risk factor, treating to a non-HDL-C goal of <100 mg/dL (LDL-C of <70 mg/dL) is considered a therapeutic option. Blood 05/07/2025 9:50 AM [employer] AND [employer] FEEDER 05/07/2025 9:50 AM [employer] AND [employer] FEEDER Narrative [facility] - 05/09/2025 5:40 AM ST[employer] AND [employer] FEEDER FASTING:NO FASTING: NO Katharine Dewitt NP LAB BLOOD ORDERABLES Sharda l [facility] [address] [place] [address] * (ABNORMAL) POCT hemoglobin A1c (04/23/2025 8:52 AM ST[employer] AND [employer] FEEDER) Hemoglobin A1C, POC 6.4(A) 4.0 - 5.6 % Blood 04/23/2025 8:52 AM [employer] AND [employer] FEEDER Katharine Dewitt NP POINT OF CARE TEST ORDERA BLES Final Result * POCT glucose (04/23/2025 8:48 AM [employer] AND [employer] FEEDER) Glucose Blood, POC 171 Normal Fasting 70 - 100, Random <200 mg/dL Blood 04/23/2025 8:48 AM [employer] AND [employer] FEEDER Katharine Dewitt NP POINT OF CARE TEST ORDERA BLES Final Result * (ABNORMAL) DIABETES EYE EXAM (01/29/2025) SCRIBED DIABETIC DILATED EYE EXAM Abnormal 01/29/2025 us Historical Provider HEALTH MAINTENANCE Edited Result - Final * (ABNORMAL) Comprehensive metabolic panel (05/09/2024 8:27 AM ST[employer] AND [employer] FEEDER) Glucose 154(H) 65 - 139 mg/dL [facility] Comment: Non-fasting reference interval BUN 31(H) 7 - 25 mg/dL [facility] Creatinine 1.46(H) 0.70 - 1.22 mg/dL [facility] eGFR 48(L) > OR = 60 mL/min/1.7 3m2 [facility] BUN/creat ratio 21 6 - 22 (calc) [facility] Sodium 138 135 - 146 mmol/L [facility] Potassium, pl 4.4 3.5 - 5.3 mmol/L [facility] Chloride 108 98 - 110 mmol/L [facility] CO2 23 20 - 32 mmol/L [facility] Calcium 8.8 8.6 - 10.3 mg/dL [facility] Protein, sr 6.3 6.1 - 8.1 g/dL [facility] Albumin 3.9 3.6 - 5.1 g/dL [facility] GLOBULIN 2.4 1.9 - 3.7 g/dL (calc) [facility] Alb/glob ratio 1.6 1.0 - 2.5 (calc) [facility] Bilirubin, total 0.4 0.2 - 1.2 mg/dL [facility] Alk phos 20(L) 35 - 144 U/L [facility] AST 24 10 - 35 U/L [facility] ALT (SGPT) 28 9 - 46 U/L [facility] 05/09/2024 8:27 AM [employer] FE[employer]ER 05/09/2024 8:27 AM [employer] AND [employer] FE[employer]ER Narrative [facility] - 05/10/2024 5:10 AM [employer] AND [employer] FE[employer]ER FASTING:NO FASTING: NO us Katharine Dewitt [employer] LAB BLOOD ORDERABLES Sharda puga Result [facility] [id number] [place] [address] from Last 3 Months or Most Recently Relevant to Health Maintenance Insurance MEDICARE COMMERCIAL GENERIC MEDICARE COMMERCIAL GENERIC Care Teams Coffee Sommelier Relationship Specialty Start Date End Date Nanda RmDO [address] [place] [address] PCP - General Internal Medicine 04/18/24 Baljinder Pena MD [address] [place] [address] Referring Physician Hematology 06/25/22
== END 2025-05-09 08:18 | disposition home or self-care (01) ==
PROVIDERS: PCP Internal Medicine; Visit Provider Internal Medicine Hematology & Oncology
DX: C18.6 Malignant neoplasm of descending colon (principal)
CPT/HCPCS: 71260; 74177; Q9967